=== PATIENT | female | born 1945 | race Caucasian/White ===

== ENCOUNTER 2022-08-18 13:13 | Emergency (ER) | payer MEDICARE, SELFPAY ==
--- NOTE | ~2022-08-18 | XR_ITS ---
EXAMINATION: XR chest 2V DATE: 08/18/2022 14:48 INDICATION: 4 days of cough TECHNIQUE: frontal and lateral views of the chest were obtained. COMPARISON: None FINDINGS: Elevation the right hemidiaphragm. There are mild opacities at the bilateral lung bases. No pulmonary edema, pleural effusion or pneumothorax. Calcified pulmonary nodule versus mediastinal lymph node pr ojecting at the medial left lung base consistent with old granulomatous disease. The cardiomediastina l silhouette is normal. Median sternotomy wires and mediastinal surgical clips are seen, likely from prior coronary artery bypass grafting. Dual lead pacemaker seen with leads projecting over the expect ed locations of the right atrium and right ventricle. IMPRESSION: 1. Mild bibasilar opacities and favor atelectasis over pneumonia. 2. Elevation the right hemidiaphragm. Reviewed, dictated and finalized at location A. [employer]
[2022-08-18 13:22] VITALS: BP 131/64; PULSE 70; RESP 20; TEMP 36.6; O2SAT 95
--- NOTE | 2022-08-18 14:37 | ED.GENADULT ---
HPI - General Adult General Chief complaint: Upper Respiratory Infection Stated complaint: cold flu Source: patient Mode of arrival: ambulatory Limitations: no limitations History of Present Illness HPI narrative: Patient presents for evaluation of sick symptoms since Saturday. She initially had a ?tickle in the throat?. She has since developed a sinus congestion, postnasal drainage, productive cough of clear sputum. She has chronic shortness of breath, not worse from her baseline. She wears 2 L of oxygen at night but has not needed to titrate from her normal use. No fever, chills, nausea, vomiting, diarrhea. She does not smoke. She has been taking mucinex and cough syrup for her symptoms. She has received COVID vaccinations, COVID booster and flu shot this year. No additional complaints or concerns. Related Data Home Medications Medication Instructions Recorded Confirmed Vascepa 08/18/22 albuterol 08/18/22 apixaban 5 mg tablet (Eliquis) mg 08/18/22 budesonide-formoterol HFA 160 inhalation 08/18/22 mcg-4.5 mcg/actuation aerosol inhaler (Symbicort) diltiazem HCl 60 mg tablet mg 08/18/22 dofetilide 500 mcg capsule mcg 08/18/22 ferrous sulfate 324 mg (65 mg mg PO 08/18/22 iron) tablet,delayed release magnesium oxide 400 mg (241.3 mg mg 08/18/22 magnesium) tablet montelukast 10 mg tablet mg 08/18/22 niacin 1,000 mg tablet,extended mg PO 08/18/22 release 24 hr pantoprazole 40 mg tablet,delayed mg PO 08/18/22 release simvastatin 40 mg tablet mg 08/18/22 Allergies Allergy/AdvReac Type Severity Reaction Status Date / Time Sulfa (Sulfonamide Allergy Unknown RASH Verified 07/30/17 16:48 Antibiotics) Review of Systems Review of Systems: CONSTITUTIONAL: Denies fever, chills, or sweats. EYES: Denies visual changes, redness, or discharge. ENT: Reports a ?tickle in the throat?. Reports sinus congestion, postnasal drainage. Denies sore throat or otalgia. CARDIOVASCULAR: Denies chest pain, palpitations, or edema. RESPIRATORY: Reports cough. Reports chronic shortness of breath, not worse from baseline GASTROINTESTINAL: Denies abdominal pain, nausea, vomiting, or diarrhea. GENITOURINARY: Denies dysuria or hematuria. SKIN: Denies rash or itching. MUSCULOSKELETAL: Denies back pain, joint pain, or myalgia. NEUROLOGIC: Denies headache, numbness, dizziness, or weakness. PSYCHIATRIC: Denies anxiety or depression. [facility] Past Medical History Medical History (Updated 08/18/22 @ 15:14 by Thad Patrick, VICE CHANCELLOR, ) Atrial fibrillation Cardiovascular disease Surgical History Surgical History History of heart bypass surgery Family History Family History Mother Family history non-contributory Social History Social History Substance use: never Gender identity (if verbalized by the patient): Female Spiritual care concerns: No Exam Narrative: GENERAL: Well-appearing, well-nourished, and in no acute distress. HEAD: Normocephalic, atraumatic. EYES: PERRLA and EOMI. ENT: Nares clear, no rhinorrhea or epistaxis. Mucous membranes moist. Oropharynx without tonsillar hypertrophy exudate or other lesions. Bilateral TMs pearly jennings nonbulging NECK: Supple. No adenopathy or masses. No carotid bruits or JVD CHEST: Mild wheezing noted in posterior lung lam bilaterally. No respiratory distress. No rales or rhonchi HEART: Regular rate and rhythm. No murmur heard. Normal peripheral pulses. ABDOMEN: Soft, nontender, nondistended, normal active bowel sounds. EXTREMITIES: Normal range of motion. No edema. SKIN: Warm, dry, no rash. NEURO: No focal deficits. Alert and oriented x3. PSYCH: Normal mood and affect. Course Course Emergency Course: This is a 77 yr old female here today for sick symptoms. COVID
[2022-08-18] MEDS: methylPREDNISolone SOD SUCC 125 MG VIAL IM (14:48)
== END 2022-08-18 15:31 | disposition home or self-care (01) ==
PROVIDERS: Emergency Provider Nurse Practitioner; PCP Internal Medicine
DX: J18.9 Pneumonia, unspecified organism (principal); I48.91 Unspecified atrial fibrillation; I67.9 Cerebrovascular disease, unspecified; Z95.1 Presence of aortocoronary bypass graft
CPT/HCPCS: 71046; 87426; 87804; 99203; C9803; G0463; J2930

== ENCOUNTER 2023-09-06 12:53 | Emergency (ER) | payer MEDICARE, SELFPAY ==
[2023-09-06 13:06] VITALS: BP 133/60; PULSE 72; RESP 16; TEMP 36.8; O2SAT 94
--- NOTE | 2023-09-06 13:28 | ED.URI ---
HPI - URI/Sore Throat General Chief Complaint: Upper Respiratory Infection Stated Complaint: sinus/chest congestion/cough Time Seen by Provider: 09/06/23 13:28 Source: patient, RN notes reviewed and old records reviewed Mode of arrival: ambulatory Limitations: no limitations History of Present Illness HPI Narrative: 78 years old female presents to express care with complaints of sinus congestion and drainage which has moved into chest with increased cough with production of yellowish green mucous with some blood streak noted,Patient reports history of asthma and is on daily inhalers. Patient reports that she has taken Sudafed and Mucinex for her symptoms. Respirations even and nonlabored with no tachypnea, able to speak in full sentences, SAO2 94% on room air. MD elicited complaint: cough, rhinorrhea, nasal congestion and other (cough productive) Pertinent past history: asthma Onset (ago): week(s) (1) Consistency: constant Pain scale (0-10): 5 Able to tolerate fluids by mouth: Yes Treatments prior to arrival: other (sudafed and Mucinex) Related Data Home Medications Medication Instructions Recorded Confirmed albuterol 08/18/22 apixaban 5 mg tablet (Eliquis) mg 08/18/22 budesonide-formoterol HFA 160 inhalation 08/18/22 mcg-4.5 mcg/actuation aerosol inhaler (Symbicort) diltiazem HCl 60 mg tablet mg 08/18/22 dofetilide 500 mcg capsule mcg 08/18/22 ferrous sulfate 324 mg (65 mg mg PO 08/18/22 iron) tablet,delayed release magnesium oxide 400 mg (241.3 mg mg 08/18/22 magnesium) tablet montelukast 10 mg tablet mg 08/18/22 niacin 1,000 mg tablet,extended mg PO 08/18/22 release 24 hr pantoprazole 40 mg tablet,delayed mg PO 08/18/22 release furosemide 40 mg tablet mg 09/06/23 icosapent ethyl 1 gram capsule g PO 09/06/23 propranolol 120 mg capsule,24 mg PO 09/06/23 hr,extended release rosuvastatin 40 mg tablet mg 09/06/23 Allergies Allergy/AdvReac Type Severity Reaction Status Date / Time Sulfa (Sulfonamide Allergy Unknown RASH Verified 09/06/23 13:02 Antibiotics) Review of Systems Review of Systems: CONSTITUTIONAL:Reports malaise, no chills, sweats, or fever. EYES: Denies visual changes, redness, or discharge. ENT: Reports rhinorrhea, congestion, sinus pain, no otalgia and no sore throat. CARDIOVASCULAR: Denies chest pain, palpitations, or edema. RESPIRATORY: Reports cough.? Denies dyspnea. GASTROINTESTINAL: Denies abdominal pain, nausea, vomiting, diarrhea SKIN: Denies rash or itching. MUSCULOSKELETAL: Reports myalgia. NEUROLOGIC: Denies headache. All systems reviewed & are unremarkable except as noted in HPI and below PMFSH Past Medical History Medical History Asthma Atrial fibrillation Cardiovascular disease Elevated cholesterol GERD (gastroesophageal reflux disease) Hypertension Surgical History Surgical History (Updated 09/07/23 @ 15:37 by Ofelia Sin NP) History of bilateral knee replacement History of bladder suspension procedure History of cataract surgery bilateral History of heart bypass surgery Status post biventricular cardiac pacemaker insertion Family History Family History Mother Family history non-contributory Social History Social History (Updated 09/07/23 @ 15:29 by Ofelia Sin NP) Smoking status: Former smoker Additional smoking assessment comments: quit 1986 after smoking 20 years Alcohol intake: current Alcohol use details: rare social Substance use: never Gender identity (if verbalized by the patient): Female Spiritual care concerns: No Comments At time of signature, agree with nursing past medical, surgical, social and family history. There is no relevant family history pertinent to the presenting complaint Exam Narrative: GENERAL: Well-appearing, well-nourished, and in no acut
[2023-09-06 13:29] VITALS: BP 133/60; PULSE 72; RESP 16; TEMP 36.8; O2SAT 94
== END 2023-09-06 13:50 | disposition home or self-care (01) ==
PROVIDERS: Emergency Provider Registered Nurse; PCP Internal Medicine
DX: J06.9 Acute upper respiratory infection, unspecified (principal); Z87.891 Personal history of nicotine dependence; J45.909 Unspecified asthma, uncomplicated; I48.91 Unspecified atrial fibrillation; E78.00 Pure hypercholesterolemia, unspecified; K21.9 Gastro-esophageal reflux disease without esophagitis; I10 Essential (primary) hypertension; Z96.653 Presence of artificial knee joint, bilateral; Z95.1 Presence of aortocoronary bypass graft; Z95.0 Presence of cardiac pacemaker
CPT/HCPCS: 99213; G0463

== ENCOUNTER 2024-11-19 10:59 | Emergency (ER) | payer MEDICARE, SELFPAY ==
[2024-11-19 11:09] VITALS: BP 109/75; PULSE 93; RESP 20; TEMP 36.9; O2SAT 92
--- NOTE | 2024-11-19 11:24 | ED_ITS ---
HPI - URI/Sore Throat General Chief Complaint: Upper Respiratory Infection Stated Complaint: sinus problem/cough/nosebleed Time Seen by Provider: 11/19/24 11:24 Source: patient, RN notes reviewed and old records reviewed Mode of arrival: ambulatory Limitations: no limitations History of Present Illness HPI Narrative: 79-year-old female presents to the [facility] with complaints of cough, congestion, right ear pressure, chills. Reports fevers been on and off of 100. Reports she has taken Delsym. Symptoms for 7-10 days. Patient reports a history of asthma. Has not been using her albuterol. Onset (ago): day(s) (-) Related Data Home Medications ?Medication ?Instructions ?Recorded ?Confirmed ?Last Taken ?Type albuterol 08/18/22 Unknown History apixaban 5 mg tablet (Eliquis) mg 08/18/22 Unknown History budesonide-formoterol HFA 160 inhalation 08/18/22 Unknown History mcg-4.5 mcg/actuation aerosol inhaler (Symbicort) diltiazem HCl 60 mg tablet mg 08/18/22 Unknown History dofetilide 500 mcg capsule mcg 08/18/22 Unknown History ferrous sulfate 324 mg (65 mg mg PO 08/18/22 Unknown History iron) tablet,delayed release magnesium oxide 400 mg (241.3 mg mg 08/18/22 Unknown History magnesium) tablet montelukast 10 mg tablet mg 08/18/22 Unknown History niacin 1,000 mg tablet,extended mg PO 08/18/22 Unknown History release 24 hr pantoprazole 40 mg tablet,delayed mg PO 08/18/22 Unknown History release icosapent ethyl 1 gram capsule g PO 09/06/23 Unknown History rosuvastatin 40 mg tablet mg 09/06/23 Unknown History Flonase 11/19/24 Unknown History Vitamin C 11/19/24 Unknown History Vitamin D3 11/19/24 Unknown History albuterol sulfate 90 mcg/actuation inhalation 11/19/24 Unknown History aerosol inhaler allergy pill 11/19/24 Unknown History aspirin 11/19/24 Unknown History calcium 11/19/24 Unknown History multivitamin 11/19/24 Unknown History nebivolol 20 mg tablet mg 11/19/24 Unknown History nitroglycerin 0.4 mg sublingual mg 11/19/24 Unknown History tablet primidone 50 mg tablet mg 11/19/24 Unknown History spironolactone 50 mg tablet mg 11/19/24 Unknown History vitamin b12 11/19/24 Unknown History Allergies Allergy/AdvReac Type Severity Reaction Status Date / Time Sulfa (Sulfonamide Allergy Unknown RASH Verified 11/19/24 11:00 Antibiotics) Review of Systems Review of Systems: All systems reviewed & are unremarkable except as noted in HPI and below Constitutional: Constitutional: Reports no additional constitutional complaints ENT: Reports as per HPI Cardiovascular: Cardiovascular: Reports no additional cardiovascular complaints, Denies chest pain and Denies dyspnea Respiratory: Respiratory: Reports as per HPI, Reports chest congestion, Reports cough and Denies dyspnea Musculoskeletal: Musculoskeletal: Reports no additional musculoskeletal complaints Integumentary/Breasts: Skin/Breast: Reports system reviewed and no additional complaints, except as docu PMFSH Past Medical History Medical History Asthma Elevated cholesterol Hypertension GERD (gastroesophageal reflux disease) Atrial fibrillation Cardiovascular disease Surgical History Surgical History History of cataract surgery bilateral History of bladder suspension procedure Status post biventricular cardiac pacemaker insertion History of bilateral knee replacement History of heart bypass surgery Family History Family History Mother Family history non-contributory Social History Social History Smoking status: Former smoker Additional smoking assessment comments: quit 1986 after smoking 20 years Alcohol intake: current Alcohol use details: rare social Substance use: never Gender identity (if verbalized by the patient): Female Spiritual care concerns: No Comments At the time of my signature, I reviewed and agree with the nursing past medical, surgical, social, and family history. There is no relevant family history pertinent to the patient complaint. Exam Const: General: cooperative, healthy appearing, comfortable, no acute distress, well developed, alert and well nourished Nutritional Appearance: well nourished Orientation/consciousness: patient oriented x3 Limitations: no limitations HENMT: Head: normal to inspection Ears: hearing grossly normal bilaterally, external ears normal, EAC's normal, mastoids normal, no periauricular adenopathy and TM abnormal with fluid behind the TM bilateral Face/Nose/Sinus: Normal external nose present, No nasal discharge present, face symmetric and sinus tenderness Mouth: Yes Normal oral and palatal mucosa present, Yes lip normal, Yes tongue normal and Yes moist mucous membranes Throat: uvula midline, postnasal drainage and no uvular edema Eyes: General: appearance normal, both eyes and all related structures Alignment and Position: alignment normal Neck: Neck: normal visual inspection, full ROM, no lymphadenopathy and no meningeal signs Chest: Chest palpation & inspection: normal inspection of the chest Resp: Effort & Inspection: normal respiratory effort and able to speak in complete sentences Auscultation: clear to auscultation bilaterally, no crackles, no rales, no rhonchi and no wheezes Cardio: Rate: regular rate Skin: General skin exam: normal color and no rashes or lesions noted Neuro: General: patient oriented x3, gait normal, moves all extremities and no meningeal signs Cognition (Neuro): normal cognition Speech: normal speech Gait exam (Neuro): Normal gait present Extrem: General: normal to inspection, full ROM, capillary refill normal and normal gait Psych: Appearance: grossly normal and well kempt Mental Status: mental status grossly normal Speech and movement: Normal speech and movement present and Clear speech present Affect: normal affect Attitude: cooperative Course Course Level of Care: Express Care Visit Vital Signs Vital signs: Vital Signs Temperature 98.5 F 11/19/24 11:09 Pulse Rate 93 11/19/24 11:09 Respiratory Rate 20 11/19/24 11:09 Blood Pressure 109/75 11/19/24 11:09 Pulse Oximetry 92 11/19/24 11:09 Oxygen Delivery Room Air 11/19/24 11:09 Temperature 98.5 F 11/19/24 11:09 Pulse Rate 93 11/19/24 11:09 Respiratory Rate 20 11/19/24 11:09 Blood Pressure 109/75 11/19/24 11:09 Pulse Oximetry 92 11/19/24 11:09 Oxygen Delivery Room Air 11/19/24 11:09 Reviewed MDM - URI/Sore Throat MDM Narrative Medical decision making narrative: Patient sitting comfortably in exam room. Nontoxic, vitals stable. Patient in no acute distress. Patient presents with cough, congestion for 7-10 days. Has tried [id number] products. No acute findings noted on exam. Patient symptoms and exam consistent with sinusitis, bronchitis. Will treat with antibiotic, steroids, encourage patient to use inhaler. Patient appropriate for outpatient treatment with close follow- up. Discussed signs and symptoms proceed to the emergency room which patient verbalized understanding. Discharge instructions reviewed with patient, as well as provided in writing per nursing staff. The instructions also include specific and strict return/GO TO THE ER as well as f/u information. All questions have been answered, and the patient deny any further questions with discharge and discharge plan. Some parts of this dictation were generated by voice recognition software and may contain typographical and/or grammatical inaccuracies. Differential Diagnosis Differential diagnosis: Likely upper respiratory infection, otitis media, sinusitis, viral infection, bronchitis, influenza and pharyngitis Critical Care Time Critical Care Time Critical Care Time: No Discharge Plan Discharge Clinical Impression: Bronchitis Sinusitis Qualifiers: Sinusitis location: pansinusitis Chronicity: acute Recurrence: not specified as recurrent Qualified Code(s): J01.40 - Acute pansinusitis, unspecified Patient Disposition: Home, Self-Care Condition: Stable Instructions: Antibiotic Form, Sinusitis (ED), Acute Bronchitis (ED) Additional Instructions: You can use Delsym as needed for cough Use your inhaler every 4-5 hours while awake It is very important to treat your symptoms. Drink plenty of water, Gatorade, Pedialyte, ice pops or Jell-O. -Alternate Tylenol and Motrin per package directions for fever or pain. You can alternate every 4 hours -Antihistamine medication such as Zyrtec/Claritin/Dori during the day can help improve symptoms. -doing daily nasal irrigations can help relieve pressure your sinuses. Things like a Neti pot -Use Flonase twice a day for 5 days then daily to help reduce the inflammation and dry up your sinuses. -You can also use Mucinex. Be sure to drink plenty of water with this medication at least 8 ounces with every dose and it is important to drink 8 to 10 glasses of water per day. Water is a natural decongestant -Eat and drink things that are easy to swallow, like tea or soup, or popsicles. -Oral rinses such as: Salt water gargles and/or may use topical anesthetic (eg. Chloraseptic spray) or lozenges to relieve dryness or throat pain). -Frequent hand washing or hand health administrator is one of the best ways to prevent spread of infection. -Using a vaporizer or humidifier at night will also help thin secretions and help with coughing up phlegm. -Follow up with primary care provider in 7-10 days if condition is not improving - For new or worsening symptoms go directly to the nearest ER Patient Language: New Zealander Prescriptions: New amoxicillin-pot clavulanate 875-125 mg tablet 1 tablet PO Q12H Qty: 14 0RF prednisone 20 mg tablet See Rx Instructions .Route .COMPLEX Qty: 9 0RF Rx Instructions: Take 40 mg daily for 3 days, 20 mg daily for 3 days No Action primidone 50 mg tablet nitroglycerin 0.4 mg tablet, sublingual albuterol sulfate 90 mcg/actuation HFA aerosol inhaler INHALATION spironolactone 50 mg tablet nebivolol 20 mg tablet Flonase aspirin multivitamin Vitamin C calcium vitamin b12 Vitamin D3 allergy pill niacin 1,000 mg tablet extended release 24 hr PO magnesium oxide 400 mg (241.3 mg magnesium) tablet pantoprazole 40 mg tablet,delayed release (DR/EC) PO montelukast 10 mg tablet diltiazem HCl 60 mg tablet dofetilide 500 mcg capsule budesonide-formoterol [Symbicort] 160-4.5 mcg/actuation HFA aerosol inhaler INHALATION ferrous sulfate 324 mg (65 mg iron) tablet,delayed release (DR/EC) PO Eliquis 5 mg tablet albuterol rosuvastatin 40 mg tablet icosapent ethyl 1 gram capsule PO Follow-up/Referrals: Mariano,Darrell Mccarty MD [Primary Care Provider] - 2 Weeks (express care follow up ) Time of Disposition: 11:47
--- OUTSIDE RECORDS SUMMARY | 2024-11-19 11:58 | XMS_ITS | Referral Summary ---
Author Organization [facility] Address [address] [place] [address] Care Team Providers Care Light Oil Operator Name Role Phone Easton Quintana MD Primary Care Provider + Jim Watkins MD Unavailable [phone] Encounters Date Type Department Care Team Description 11/18/2024 Results Follow-Up [facility] at [place] [address] [facility] [address] [place] [id number] Sharita Wei MD 11/13/2024 9:51 AM CDT Anesthesia Event [address] [address] Mike Ulloa MD 11/13/2024 10:00 AM CDT - 11/13/2024 10:30 AM CDT Surgery [address] [address] Sharita Wei MD COLON REMOVAL SNARE 11/13/2024 8:27 AM CDT - 11/13/2024 11:13 AM CDT Hospital Encounter [address] [address] Sharita Wei MD Personal history of colonic polyps; Family history of colon cancer; Encounter for screening colonoscopy; History of colonic polyps Discharge Disposition: Discharge to home or self care 09/03/2024 1:25 PM PRESIDENT PRACTICING UROLOGIST - 09/03/2024 11:59 PM PRESIDENT PRACTICING UROLOGIST Hospital Encounter [address] [address] Rad, Amh Fluoro Disorders of diaphragm Discharge Disposition: Discharge to home or self care 09/03/2024 1:25 PM PRESIDENT PRACTICING UROLOGIST - 09/03/2024 11:59 PM PRESIDENT PRACTICING UROLOGIST Hospital Encounter [facility] [address] [place] [address] Abnormal results of pulmonary function studies; Other disorders of lung Discharge Disposition: Discharge to home or self care from Last 3 Months Allergies Active Allergy Reactions Criticality Noted Date Comments Sulfa (Sulfonamide Antibiotics) Rash Reaction: RASH/HIVES, Reaction: Rash, Sulfanilamide Rash Reaction: Rash, Medications SYMBICORT 160-4.5 mcg/actuation inhaler Inhale 2 puffs 2 (two) times a day 02/22/20 17 Active magnesium oxide (MAG-OX) 400 mg (241.3 mg elemental) tabletIndicatio ns:hypomagnesem ia Take 1 tablet (400 mg total) by mouth 2 (two) times a day 02/21/20 17 Active vit A,C and W-rjidpj-vywmxm ls (OCCUVITE with LUTEIN) 1,000 unit-200 mg-60 unit-2 mg tabletIndicatio ns:Vitamin Deficiency Prevention 1 tablet daily Active icosapent ethyl (VASCEPA) 1 gram capsule Take 2 capsules (2 g total) by mouth 2 (two) times a day Active cholecalciferol (VITAMIN D-3) 5,000 unit tablet Take 1 tablet (5,000 Units total) by mouth daily Active cyanocobalamin (Vitamin B-12) 1,000 mcg tabletIndicatio ns:Prevention of Vitamin B12 Deficiency Take 1 tablet (1,000 mcg total) by mouth daily Active fluticasone propionate (FLONASE) 50 mcg/actuation nasal spray Administer 1 spray into each nostril daily Active montelukast (SINGULAIR) 10 mg tablet Take 1 tablet (10 mg total) by mouth nightly Active multivitamin capsule Take 1 capsule by mouth daily Active niacin ER (NIASPAN) 1,000 mg CR tablet Take 2 tablets (2,000 mg total) by mouth nightly Active aspirin 81 mg enteric coated tabletIndicatio ns:Myocardial Reinfarction Prevention Take 1 tablet (81 mg total) by mouth daily Active apixaban (ELIQUIS) 5 mg tablet Take by mouth 01/24/20 17 Active dofetilide (TIKOSYN) 500 mcg capsuleIndicati ons:Prevention of Recurrent Atrial Fibrillation Take 1 capsule (500 mcg total) by mouth 2 (two) times a day Active dilTIAZem (CARDIZEM) 60 mg tabletIndicatio ns:hypertension Take 1 tablet (60 mg total) by mouth 3 (three) times a day Active busPIRone (BUSPAR) 5 mg tablet Take 1 tablet (5 mg total) by mouth 3 (three) times a day as needed 07/31/[address] (PROTONIX) 40 mg EC tabletIndicatio ns:Iron deficiency anemia, unspecified iron deficiency anemia type TAKE 1 TABLET(40 MG) BY MOUTH TWICE DAILY 180 tablet 3 10/29/19 24 Active nebivoloL (BYSTOLIC) 20 mg tablet Take 1 tablet (20 mg total) by mouth daily 03/21/20 24 Active primidone (MYSOLINE) 50 mg tablet Take 0.5 tablets (25 mg total) by mouth daily 04/21/20 24 Active spironolactone (ALDACTONE) 50 mg tablet Take 1 tablet (50 mg total) by mouth daily 03/21/20 24 Active rosuvastatin (CRESTOR) 40 mg tablet Take 1 tablet (40 mg total) by mouth daily Active albuterol HFA (PROVENTIL HFA,VENTOLIN HFA,PROAIR HFA) 90 mcg/actuation inhaler Inhale 1 puff 3 (three) times a day Active ascorbic acid (vitamin C) 1,000 mg tablet Take 1 tablet (1,000 mg total) by mouth daily Active calcium iax-xpe-R1-Zn-c op-bartolo 250 mg-40 mg- 125 unit-3.75mg tablet Take 1 tablet by mouth 2 (two) times a day Active ferrous sulfate ER 324 mg (65 mg iron) EC tablet TAKE 1 TABLET BY MOUTH TWICE DAILY 180 tablet 1 11/17/19 25 Active simvastatin (ZOCOR) 40 mg tablet Take 1 tablet (40 mg total) by mouth nightly 025 Discontinued(A lternate therapy) metroNIDAZOLE (METROGEL) 0.75 % gel SHENG TO RED AREAS ON FACE BID 05/04/20 20 025 Discontinued propranolol LA (INDERAL LA) 120 mg 24 hr capsule 09/18/19 23 03/13/2 025 Discontinued(A lternate therapy) furosemide (LASIX) 10 mg/mL solution Take by mouth daily 025 Discontinued(A lternate therapy) potassium chloride 20 mEq/50 mL IVPB Infuse 50 mL (20 mEq total) into a venous catheter 025 Discontinued(T herapy completed) isosorbide mononitrate ER (IMDUR) 30 mg 24 hr tablet TAKE 1 TABLET BY MOUTH EVERY DAY PREVENTION 02/07/20 025 Discontinued nitroglycerin (NITROSTAT) 0.4 mg SL tablet 02/05/20 025 Discontinued(T herapy completed) ferrous sulfate ER 324 mg (65 mg iron) EC tablet TAKE 1 TABLET BY MOUTH TWICE DAILY 180 tablet 1 05/11/20 025 Discontinued Active Problems Problem Noted Date Diagnosed Date Personal history of colonic polyps 02/20/2024 Encounter for screening colonoscopy 02/20/2024 Yeast dermatitis 09/19/2022 Assessment & Plan (09/19/2022 3:08 PM PRESIDENT PRACTICING UROLOGIST): Will treat with nystatin prn Dryness measure discussed. Well woman exam 09/20/2021 Overview (02/10/2024): Lab: Pap:all normal Dr. Quintana follows labs Lexy: 2022- normal per pt. Colonoscopy: 2021- 7 more polyps. To go back 2023 BMD: last one in the computer is 2012, but she said Dr. Quintana told her she is up to date. She will d/w him at her next appt. She discussed her BMD with Dr. Quintana and he said she did not need now. Assessment & Plan (02/10/2024 3:24 PM CDT): She will schedule her colonoscopy through Dr. Quintana's She discussed her BMD with Dr. Quintana and he said she did not need now. Complete exam done To call if she gets one of the lesions and I will get her in to check. Assessment & Plan (09/19/2022 3:07 PM PRESIDENT PRACTICING UROLOGIST): Complete exam done. Assessment & Plan (09/20/2021 10:09 AM PRESIDENT PRACTICING UROLOGIST): Complete exam done. Not a candidate for pap. RTO 12m. Sick sinus syndrome 06/21/2021 Pulsatile tinnitus of right ear 08/07/2019 Assessment & Plan (08/07/2019 10:58 AM PRESIDENT PRACTICING UROLOGIST): Zpak with a meal daily CT Angiogram - call with results Hearing Test Chronic maxillary sinusitis 08/07/2019 Assessment & Plan (08/07/2019 10:59 AM PRESIDENT PRACTICING UROLOGIST): Flonase 2 sprays into each nostril while looking down over the sink, do not sniff in or blow nose after use daily for one month Zpak with a meal daily Tinnitus of right ear 08/07/2019 Assessment & Plan (08/07/2019 10:58 AM PRESIDENT PRACTICING UROLOGIST): Hearing test, call with results Iron deficiency anemia 07/09/2019 Overview (07/09/2019): Added automatically from request for surgery [id number] 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 She says she just had some blood work ordered by Dr. Quintana this past week and was told she needs to be on iron supplements daily. She just started these. Pt says her Hgb was stable but still low. Will order small bowel capsule endoscopy to complete evaluation and f/u after this testing is done. Family history of colon cancer 04/01/2019 Overview (04/01/2019): Added automatically from request for surgery [id number] History of colon polyps 04/01/2019 Overview (04/01/2019): Added automatically from request for surgery [id number] Multiple gastric ulcers 2017 Assessment & Plan (2017 4:49 PM CDT): Continue with Protonix 40 mg b.i.d. for the next week and a half, then taper down to 40 mg daily in the a.m. Patient was advised to with Dr. Billings appointment as scheduled here in 2 weeks as well There is any concern regarding changes in stools, vomiting, and abdominal pain to follow-up certainly in our office or with the GI specialist Anticoagulant long-term use 2017 Assessment & Plan (2017 4:41 PM CDT): Start back on qu and aspirin on Saturday as advised. F/u with us with any concern of melena Flushing reaction 2017 Assessment & Plan (2017 4:51 PM CDT): Patient was educated that this flushing reaction was due to having taking her niacin without the aspirin. Patient was advised to stop niacin for the next 2 nights until resuming her aspirin as that should assist with the side effects of the niacin. Certainly if symptoms persist with the flushing will look into other causes of this however nice and as well noted to do that and having not taken with the aspirin as the likely cause Healthcare maintenance 02/25/2017 Medication management 02/25/2017 Paroxysmal atrial fibrillation 02/25/2017 Obstructive sleep apnea (adult) (pediatric) 08/02 Overview (12/07/2016): CARROLL Benign hypertension 01/16/2014 Overview (12/07/2016): BENIGN HYPERTENSION Osteoarthritis 12/21/2013 Overview (12/06/2016): OA (osteoarthritis) Vitamin D deficiency 11/28/2012 Overview (12/06/2016): VITAMIN D DEFICIENCY NOS Hypertension 06/17/2012 Overview (12/06/2016): Hypertension, Unspecified Hyperlipidemia 06/17/2012 Overview (12/06/2016): HYPERLIPIDEMIA NEC/NOS Atherosclerosis of coronary artery 06/17/2012 Overview (12/07/2016): CAD (coronary artery disease) History of deep venous thrombosis 06/17/2012 Overview (12/07/2016): History of DVT (deep vein thrombosis) Lichen sclerosus et atrophicus 06/17/2012 Overview (12/07/2016): Lichen sclerosus et atrophicus Assessment & Plan (02/10/2024 3:25 PM CDT): Healthy vulva today Assessment & Plan (09/19/2022 3:07 PM PRESIDENT PRACTICING UROLOGIST): Vulva is healthy today Assessment & Plan (09/20/2021 10:09 AM PRESIDENT PRACTICING UROLOGIST): asx today. Will continue to follow. Immunizations Immunization Administration Dates Next Due Influenza, Quad, Adjuvantate d, Intramuscular 05/17/2023,05/10/2020 Influenza, Quadrivalent, Hig h Dose, Preservative Free, Intrr 06/15/2022,06/26/2021 Influenza, Quadrivalent, Spl it, Preservative Free, Intramuscular 06/25/2016 Influenza, Split 06/11/2011,05/30/2010 Influenza, Trivalent, High D ose, Split, Preservative Free, Intramuscular 06/07/2019,06/30/2018,07/02/2017,06/24 Influenza, Trivalent, IM (MDV) 4,06/10/2014,05/27/2013,06/14,06/02/2007 Influenza, Trivalent, Preser vative Free, Intramuscular 05/10/2020,06/06/2015 Moderna SARS-CoV-2 Monovalen t Vaccination (12+ YRS) 01/15/2022,08/02/2021,11/11/2020,10/14 Pneumococcal Conjugate PCV 13 12/09/2012 Pneumococcal Polysaccharide PPV23 04/12/2008 RSV Vaccine, Pref, Recombina nt, Subunit, Adjuvanted, PF, IM (Arexvy) 05/17/2023 Td, adsorbed 11/29/2010,04/15/2000 ZOSTER LIVE 01/21/2008 ZOSTER Recombinant 08/06/2019,06/07/2019 Social History Tobacco Use Types Packs/Day Years Used Date Smoking Tobacco: Former Cigarettes 0.5 15 0 02/07/1959 - 1972 Smokeless Tobacco: Never Tobacco Cessation:Counseling Given: Not Answered Alcohol Use Standard Drinks/Week Comments Yes 0 (1 standard drink = 0.6 oz pur e alcohol) 1 daily Humiliation, Afraid, Rape, and Kick questionnair e Answer Date Recorded Within the last year, have y ou been afraid of your partner or ex-partner? No 02/10/2024 Within the last year, have y ou been humiliated or emotionally abused in other ways by your partner or ex-partner? No Within the last year, have y ou been kicked, hit, slapped, or otherwise physically hurt by your partner or ex-partner? No 02/10/2024 Within the last year, have y ou been raped or forced to have any kind of sexual activity by your partner or ex-partner? No 02/10/2024 AUDIT-C Answer Date Recorded Q1: How often do you have a drink containing alcohol? 4 or more times a week 11/12/2024 Q2: How many drinks containi ng alcohol do you have on a typical day when you are drinking? 1 or 2 Q3: How often do you have si x or more drinks on one occasion? Never 11/12/2024 PHQ-2 Answer Date Recorded PHQ-2 Total Score (If total score is 3 or more points, staff should administer the PHQ-9) 0 02/10/2024 Personal Safety Answer Date Recorded Have you ever been in or are you currently in a harmful physical or emotional relationship or is someone making you feel afraid or unsafe? Denies 11/13/2024 Comments No Sex and Gender Information Value Date Recorded Sex Assigned at Not on file Legal Sex Female 8:07 AM PRESIDENT PRACTICING UROLOGIST Gender Identity Female 09/12/2021 8:12 PM PRESIDENT PRACTICING UROLOGIST Sexual Orientation Straight 09/12/2021 8: 12 PM PRESIDENT PRACTICING UROLOGIST Last Filed Vital Signs Vital Sign Reading Time Taken Comments Blood Pressure 146/61 11/13/2024 10:55 AM CDT Pulse 70 11/13/2024 10:55 AM CDT Temperature 36.8 C (98.2 F) 11/13/2024 10:55 AM CDT Respiratory Rate 16 11/13/2024 10:55 AM CDT Oxygen Saturation 97% 11/13/2024 10:55 AM CDT Inhaled Oxygen Concentration - - Weight 90.7 kg (200 lb) 11/13/2024 8:41 AM CDT Height 162.6 cm (5' 4 ) 11/13/2024 8:41 AM CDT Body Mass Index 34.33 11/13/2024 8:41 AM CDT Plan of Treatment Not on file Medical Devices Implanted Type Area Judo Teacher Device Identifier Shelf Expiration Date Model / Serial / Lot Knee Bilateral: Knee Description:2013 bilateral, both with in the same year Procedures Procedure Name Priority Date/Time Associated Diagnosis Comments SURGICAL PATHOLOGY STAT 11/13/2024 2: 13 PM CDT History of colonic polyps Family history of colon cancer Encounter for screening colonoscopy INFRARED COAGULATION OF HEMORRHOIDS 11/13/2024 9:36 AM CDT Personal history of colonic polyps Family history of colon cancer Encounter for screening colonoscopy ENDO ADD ON COLON BIOPSY 11/13/2024 9:36 AM CDT Personal history of colonic polyps Family history of colon cancer Encounter for screening colonoscopy COLON REMOVAL SNARE 11/13/2024 9 :36 AM CDT Personal history of colonic polyps Family history of colon cancer Encounter for screening colonoscopy COLONOSCOPY 11/13/2024 8:29 AM CDT SNIFF TEST Schedule Routine, Read Routine (OP Routine) 09/03/2024 2:33 PM PRESIDENT PRACTICING UROLOGIST Disorders of diaphragm CT CHEST WO CONTRAST Schedule Routine, Read Routine (OP Routine) 09/03/2024 2:15 PM PRESIDENT PRACTICING UROLOGIST Abnormal results of pulmonary function studies Other disorders of lung HM DEXA SCAN Routine 01/12/2013 from Last 3 Months or Most Recently Relevant to Health Maintenance Results * Surgical pathology (11/13/2024 2:13 PM CDT) Tissue (Colon, Biopsy) 11/13/2024 10:22 AM CDT Tissue (Polyp(s), colon/colorectal, esophageal, gastric) 11/13/2024 10:22 AM CDT Narrative PATHOLOGY [facility] - 11/16/2024 12:43 PM CDT EPIC results best viewed via link to PDF [facility] Department of Pathology [address] [place] [address] Note to Patients: This report may contain a detailed description of human tissue sent by a health care provider to the laboratory for pathologic evaluation. The content of this report is essential for diagnosis and may provide important critical findings. This information may be unfamiliar to patients to review without a medical professional present. It is advised that the patient review this report in the presence of a health care provider who can answer questions and explain the details. Final Report Patient Name: TEETEE AGUDELO Address: [address] [place] [address] [place] [address]- Gender: F : 1945 (Age: 79) Service: Gastro Location: [facility] Hospital #: [id number] Patient Type: [facility] Taken: 11/13/2024 Received: 11/13/2024 Accessioned: 11/13/2024 Reported: 11/16/2024 Physician(s):Dr. Sharita Wei M.D. Diagnosis: A. Colon, cecum, biopsy: - Focal active inflammation. - No evidence of dysplasia or malignancy. - See microscopic description. B. 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 - No evidence of dysplasia or malignancy. Joe Disla MD Report Electronically Reviewed and Signed Out By Joe Disla MD 11/16/2024 12:43:56 Specimen(s) Received: A: Cecum biopsy B: Hepatic flexure polyp x 1 Microscopic Description: A. Microscopic examination shows fragments of colonic mucosa with focal active cryptitis. There is no evidence of crypt abscess formation, crypt architectural distortion, or well-formed granulomas. There is no evidence of dysplasia or malignancy. In summary, the findings are that of focal active inflammation. There are no morphologic findings to strongly suggest a specific etiology. Recommend correlation with clinical and endoscopic findings and follow-up as clinically indicated. B. Microscopic examination shows polypoid fragments of colonic mucosa with hyperplastic glandular changes in addition to crypt dilation, lateral branching, and focal flattening of the crypt bases. Given the endoscopic impression of a 16 mm sessile polyp, the findings are consistent with a sessile serrated lesion (former WHO designation: sessile serrated adenoma/polyp). There is no evidence of dysplasia or malignancy. Intradepartmental consultation: This specimen was also reviewed by Dr. Arora, who concurs with the above findings. Clinical History: Personal history of colonic polyps. Family history of colon cancer. Screening colonoscopy. Gross Description: The specimen is submitted in two formalin containers labeled TEETEE WADE . A. The first container is labeled cecum biopsy . It is 2 fragments of jeter tissue between 2 and 3 mm. All in A. B. The second container is labeled hepatic flexure polyp . It is 6 fragments of jeter tissue between <1 and 2 mm. All in B. [employer]Tisha Brennan M.D. REPORT IMAGES AND SCANNED DOCUMENTS, IF INCLUDED, ONLY VIEWABLE IN PDF VERSION OF REPORT The performance characteristics of some immunohistochemical stains, fluorescence in-situ hybridization tests and immunophenotyping by flow cytometry cited in this report (if any) were determined by the Surgical Pathology Department at [facility] as part of an ongoing vendor quality supervisor program and in compliance with federally mandated regulations drawn from the Clinical Laboratory Improvement Act of 1988 (CLIA '88). Some of these tests rely on the use of analyte specific reagents and are subject to specific labeling requirements by the US Food and Drug Administration. Such diagnostic tests may only be performed in a facility that is certified by the Department of Health and Human Services as a high complexity laboratory under CLIA '88. The FDA has determined that such clearance or approval is not necessary. This test is used for clinical purposes. It should not be regarded as investigational or for research. Nevertheless, federal rules concerning the medical use of analyte specific reagents require that the following disclaimer be attached to the report: This test was developed and its performance characteristics determined by the Surgical Pathology Department [facility]. It has not been cleared or approved by the U. S. Food and Drug Administration. Note for decalcified specimens: This assay has not been validated on decalcified tissues. Results should be interpreted with caution given the possibility of false negativity on decalcified specimens us Sharita Wei MD LAB PATHOLOGY ORDERABLES F inal Result Performing Organization Address City/State/[facility] Co de Phone Number PATHOLOGY [facility] [address] [place] [address] * Colonoscopy (11/13/2024 8:29 AM CDT) Anatomical Region Laterality Modality Other Narrative Procedure Note Sharita Wei MD - 11/13/2024 8:29 AM CDT [facility] Patient Name: Teetee Agudelo Procedure Date: 11/13/2024 8:29 AM Date of : 1945 Admit Type: Outpatient Age: 79 Gender: Female Attending MD: Sharita Wei M.D. Room: [facility] ENDOSCOPY ROOM 1 Note Status: Finalized Patient Profile: This is an 79 year old female. History of multiple adenoma polyps. Her son had colon cancer. Noted complaints of bleeding per rectum bleeding this morning for coming to the colonoscopy. Procedure: Colonoscopy Indications: Screening in patient at increased risk: Familyhistory of 1st-degree relative with colorectal cancerbefore age 60 years, Surveillance: Personal history of adenomatous polyps on last colonoscopy 3 years ago, Last colonoscopy: March 2022 Referring MD: Easton Quintana M.D. Providers: Sharita Wei M.D. Impression: - Granularity at the appendiceal orifice benign-appearing. Biopsied. - One 16 mm polyp at the hepatic flexure, removedwith a hot snare. Resected and retrieved. Clips (MR conditional) were placed. - Diverticulosis in the sigmoid colon and in the descending colon. - Internal hemorrhoids. Treated with thermaltherapy. Recommendation: - Await pathology results. - Continue present medications. - Repeat colonoscopy in 3 years if clinicallyindicated Medicines: Monitored Anesthesia Care Complications: No immediate complications. Estimated Blood Loss: Estimated blood loss: none. Procedure: Pre-Anesthesia Assessment: - Prior to the procedure, a History and Physicalwas performed, and patient medications and allergieswere reviewed. The patient's tolerance of previous anesthesia was also reviewed. The risks andbenefits of the procedure and the sedation options and risks were discussed with the patient. All questions were answered, and informed consent was obtained. Prior Anticoagulants: The patient has taken noanticoagulant or antiplatelet agents. ASA Grade Assessment: Per anesthesia note and evaluation. After reviewing the risks and benefits, the patient was deemed in satisfactory condition to undergo the procedure. The benefits, risks and alternatives of theprocedure and sedation were discussed and informed consentwas obtained. All questions were answered. Please referto the signed informed consent document in the medical record. The bowel preparation used was Miralax via split dose instruction. The bowel preparation usedwas bisacodyl tablets via split dose instruction. The scope was passed under direct vision. The Pediatric Colonoscope PCF-H190L [id number] was introducedthrough the anus and advanced to the the cecum, identifiedby appendiceal orifice and ileocecal valve. Thequality of the bowel preparation was good. Bowel prep was administered using a split dose. Findings: Small external hemorrhoids were found on perianal exam. The cecum appeared normal. A localized area of granular mucosa was found at the appendiceal orifice. Biopsies were taken with a cold forceps for histology. The descending colon, transverse colon and ascending colon appeared normal. A 16 mm polyp was found in the hepatic flexure. The polyp wassessile. The polyp was removed with a hot snare. Resection and retrieval were complete. To prevent bleeding after the polypectomy, two hemostatic clips were successfully placed (MR conditional). Clip hot mill tin roller: [employer]. There was no bleeding at the end of theprocedure. Multiple small and large-mouthed diverticula were found in thesigmoid colon and descending colon. Internal hemorrhoids were found during retroflexion. The hemorrhoids were medium-sized. Coagulation for hemostasis of internal hemorrhoids using IRC (Infrared Coagulation) was successful. Electronically signed by Sharita Wei M.D. Sharita Wei M.D. 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 All rights reserved. The codes documented in this report are preliminary and upon converter operator reviewmay be revised to meet current compliance requirements. 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 Breathing troubles x 1-2 years Per pt, has restricted breathing. FT 0.3 min Dose 371.3 mGy COMPARISON: 06/20/2024 RADIATION DOSE: Dose: 12953.42 uGym2 Dose Area Product (DAP) TECHNIQUE: Fluoroscopy of the chest and diaphragm was performed for evaluation of diaphragmatic movement during respiration, including sniff. FINDINGS: RIGHT DIAPHRAGM: There is significantly diminished movement of the right hemidiaphragm. LEFT DIAPHRAGM: There is normal movement of the left hemidiaphragm. SNIFF: Normal movement. IMPRESSION: 1. Significantly diminished movement of the right hemidiaphragm. 2. Normal movement of the left hemidiaphragm. THIS IS AN ELECTRONICALLY VERIFIED FINAL REPORT 09/03/2024 2:51 PM - Electronically signed by Checo Cleary D.O. 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 Breathing troubles x 1-2 years Per pt,has restricted breathing. FT 0.3 min Dose 371.3 mGy COMPARISON: 06/20/2024 RADIATION DOSE: Dose: 78440.42 uGym2 Dose Area Product (DAP) TECHNIQUE: Fluoroscopy of the chest and diaphragm was performed forevaluation of diaphragmatic movement during respiration, including sniff. FINDINGS: RIGHT DIAPHRAGM: There is significantly diminished movement of the right hemidiaphragm. LEFT DIAPHRAGM: There is normal movement of the left hemidiaphragm. SNIFF: Normal movement. IMPRESSION: 1. Significantly diminished movement of the right hemidiaphragm. 2. Normal movement of the left hemidiaphragm. THIS IS AN ELECTRONICALLY VERIFIED FINAL REPORT 09/03/2024 2:51 PM - Electronically signed by Checo Cleary D.O. PS: PS Report ID: [id number] Reading Location: [id number] Gregory Curtis MD IMG FLUOROSCOPY PROCED URES Final Result * CT Chest WO Contrast (09/03/2024 2:15 PM PRESIDENT PRACTICING UROLOGIST) Anatomical Region Laterality Modality Body N/A Computed Tomogra phy 09/07/2024 1:09 PM PRESIDENT PRACTICING UROLOGIST Narrative 09/07/2024 1:12 PM PRESIDENT PRACTICING UROLOGIST EXAM DESCRIPTION: CT CHEST WO CONTRAST REASON FOR STUDY: OTHER DISORDER OF LUNG Follow up from previous exam done on 06/23/24, no current complaints, former smoker TECHNIQUE: CT scan of the chest performed without intravenous contrast using helical scanning technique. Reconstructed coronal and sagittal MPR images reviewed. All images stored on PACS. Automated exposure control was used as a dose optimization technique for this examination. COMPARISON: 06/20/2024 FINDINGS: The sensitivity for detection of solid visceral lesions is diminished without the use of intravenous contrast. LUNGS: Moderate elevation right hemidiaphragm is seen with atelectasis in the right middle lobe and right lower lobe unchanged probably related to prior cardiac surgery. The lungs are otherwise clear. No suspicious nodule or pneumonia. Minimal fibrotic changes in the left lung base. PLEURA: No effusion. No pneumothorax. MEDIASTINUM/NEHEMIAS: No identified masses or abnormal nodes. HEART: Changes from CABG. Mild cardiomegaly. No pericardial effusion. CORONARY ARTERY CALCIFICATION: Severe VASCULATURE: No thoracic aortic aneurysm. AXILLA: No adenopathy. CHEST WALL: Changes from median sternotomy with fusion of the sternal halves. HARDWARE/LINES/TUBES: Pacemaker with leads projecting in the right atrium and right ventricle. CABG changes. UPPER ABDOMEN: No significant abnormality. MUSCULOSKELETAL: No significant abnormality. OTHER: No other significant abnormality. IMPRESSION: 1. Moderate elevation right hemidiaphragm with basilar atelectasis. Probably related to prior CABG. THIS IS AN ELECTRONICALLY VERIFIED FINAL REPORT 09/07/2024 1:12 PM - Electronically signed by Navi RIVERA: MIGUEL Report ID: [id number] Reading Location: [place] [id number] Procedure Note Navi Willis MD - 09/07/2024 EXAM DESCRIPTION: CT CHEST WO CONTRAST REASON FOR STUDY: OTHER DISORDER OF LUNG Follow up from previous exam done on 06/23/24, no current complaints,former smoker TECHNIQUE: CT scan of the chest performed without intravenous contrastusing helical scanning technique. Reconstructed coronal and sagittal MPR images reviewed. All images stored on PACS. Automated exposure control was usedas a dose optimization technique for this examination. COMPARISON: 06/20/2024 FINDINGS: The sensitivity for detection of solid visceral lesions is diminishedwithout the use of intravenous contrast. LUNGS: Moderate elevation right hemidiaphragm is seen with atelectasisin the right middle lobe and right lower lobe unchanged probably related toprior cardiac surgery. The lungs are otherwise clear. No suspicious nodule or pneumonia. Minimal fibrotic changes in the left lung base. PLEURA: No effusion. No pneumothorax. MEDIASTINUM/NEHEMIAS: No identified masses or abnormal nodes. HEART: Changes from CABG. Mild cardiomegaly. No pericardial effusion. CORONARY ARTERY CALCIFICATION: Severe VASCULATURE: No thoracic aortic aneurysm. AXILLA: No adenopathy. CHEST WALL: Changes from median sternotomy with fusion of the sternal halves. HARDWARE/LINES/TUBES: Pacemaker with leads projecting in the rightatrium and right ventricle. CABG changes. UPPER ABDOMEN: No significant abnormality. MUSCULOSKELETAL: No significant abnormality. OTHER: No other significant abnormality. IMPRESSION: 1. Moderate elevation right hemidiaphragm with basilar atelectasis. Probably related to prior CABG. THIS IS AN ELECTRONICALLY VERIFIED FINAL REPORT 09/07/2024 1:12 PM - Electronically signed by Navi RIVERA: MIGUEL Report ID: [id number] Reading Location: [id number] Gregory Curtis MD IMG CT PROCEDURES Jeannie l Result * DEXA SCAN (01/12/2013) DEXA Scan Normal Anatomical Region Laterality Modality Other Historical Provider HEALTH MAINTENANCE Final Result from Last 3 Months or Most Recently Relevant to Health Maintenance Insurance AETNA MEDICARE AETNA MEDICARE AETNA MEDICARE Advance Directives For more information, please contact: [phone] * Full Code (Latest Code Status on File) Date Activated Date Inactivated Comments 11/13/2024 8:48 AM 11/13/2024 3:14 PM * Full Code Date Activated Date Inactivated Comments 11/13/2024 8:48 AM 11/13/2024 8:48 AM * Full Code Date Activated Date Inactivated Comments 03/23/2022 9:20 AM 03/23/2022 3:54 PM * Full Code Date Activated Date Inactivated Comments 03/23/2022 9:20 AM 03/23/2022 9:20 AM * Full Code Date Activated Date Inactivated Comments 07/14/2019 6:55 AM 07/14/2019 12:56 PM Care Teams Light Oil Operator Relationship Specialty Start Date End Date Easton Quintana MD [address] [place] [address] PCP - General 11/30/16 Jim Watkins MD [address] [facility] [place] [id number] Medical Oncologist/Director Of Business Applications Hematology and Oncology 12/29/19
--- OUTSIDE RECORDS SUMMARY | 2024-11-19 11:58 | XMS_ITS | Encounter Summary ---
Author Organization [facility] Healthcare Address [address] [place] [address] Care Team Providers Care Statistical Clerk Advertising Name Role Phone Easton Quintana MD Primary Care Provider + Jim Watkins MD Unavailable [phone] Encounter Details Date Type Department Care Team (Late st Contact Info) Description 11/18/2024 Results Follow-Up [facility] Gastroenterology at [address] [place] [address] Sharita Wei MD [address] [place] [address] Social History Tobacco Use Types Packs/Day Years Used Date Smoking Tobacco: Former Cigarettes 0.5 15 0 02/07/1959 - 1972 Smokeless Tobacco: Never Alcohol Use Standard Drinks/Week Comments Yes 0 [...] on file Legal Sex Female 8:07 AM BERRY PLANTER Gender Identity Female 09/12/2021 8:12 PM BERRY PLANTER Sexual Orientation Straight 09/12/2021 8: 12 PM BERRY PLANTER documented as of this encounter Plan of Treatment Not on file documented as of this encounter Visit Diagnoses Not on filedocumented in this encounter Care Teams Statistical Clerk Advertising Relationship Specialty Start Date End Date Easton Quintana MD [address] [facility] [place] [address] PCP - General 11/30/16 Jim Watkins MD [address] [facility] [place] [address] Medical Oncologist/Clinical Services Assistant Hematology and Oncology 12/29/19 documented as of this encounter
--- OUTSIDE RECORDS SUMMARY | 2024-11-19 11:58 | XMS_ITS | Clinical Summary ---
Author Organization [facility] Address [address] [facility] [place] [address] Care Team Providers Care Statistical Analyst Name Role Phone Bogdan Rucker MD Unavailable [phone] Easton Quintana MD Primary Care Provider [phone] Source Comments [facility] [employer],non-owned Affiliates and Associated Physician Practices is amultiple site organization consisting of ambulatory clinics and hospital sitesin [place] and [place]. This disclosure is being madepursuant to the Care Everywhere program and may not contain all information available regarding this patient. Last updated 18.[facility] [employer] Allergies Active Allergy Reactions Criticality Noted Date Comments Sulfa Drugs Rash Low 10/26/2011 Medications * Be aware that medications may not be up to date on this document. Alwaysverify current medications with the patient. Medication Sig Dispensed Refills Start Date End Date Status Niacin, Antihyperlipidemic, (NIASPAN PO) Take 1,000 mg by mouth once daily. Active simvastatin (ZOCOR) 40 MG tablet Take 40 mg by mouth at bedtime. Active Multiple Vitamins-Minerals (ICAPS PO) Take by mouth every other day as needed. Active Flaxseed, Linseed, (FLAXSEED OIL PO) Take 1,000 mg by mouth once daily after breakfast. Instructed patient to stop 1 week before surgery. Active Yleaphm-Kbaptmdcl-Eisfr in D (CALCIUM MAGNESIUM PO) Take by mouth. ALSO CONTAINS ZINC Active vitamin C (ASCORBIC ACID) 500 MG tablet Take 1,000 mg by mouth once daily. Active diphenhydramine-APAP, sleep, (TYLENOL PM ES) 25-500 MG tablet Take 1 Tab by mouth nightly as needed. Active hydrocodone-acetaminoph en (NORCO) 5-325 MG tablet Take 1-2 Tabs by mouth every 6 hours as needed for Pain. Called to [facility] [phone] 50 Tab 1 04/29/2013 Active iron polysaccharides (NIFEREX 150) 150 MG capsule Take 1 Cap by mouth once daily. 30 Cap 0 04/30/2013 Active nadolol (CORGARD) 80 MG tablet Take 1 Tab by mouth once daily after breakfast. Instructed to take AM of surgery 04/30/2013 Active Active Problems Problem Noted Date Diagnosed Date Knee joint replacement by other means 11/25/2012 Osteoarthrosis involving lower leg 08/19/2012 Overview (11/26/2015): 2015 IMO Updt Immunizations Name Administration Dates Next Due PNEUMOCOCCAL PPSV23 04/27/2002 Social History Tobacco Use Types Packs/Day Years Used Date Smoking Tobacco: Former Cigarettes 0 09/02/1959 - 09/02/1977 Smokeless Tobacco: Never Comments:0.5 Alcohol Use Standard Drinks/Week Comments Yes 8.3 (1 standard drink = 0.6 oz p ure alcohol) Sex and Gender Information Value Date Recorded Sex Assigned at Not on file Gender Identity Not on file Sexual Orientation Not on file Last Filed Vital Signs Vital Sign Reading Time Taken Comments Blood Pressure 96/44 04/30/2013 10:[address] Ramirez aware Pulse 79 04/30/2013 10:31 AM CDT Temperature 37.1 C (98.7 F) 04/30/2013 5:58 AM CDT Respiratory Rate 16 04/30/2013 5:58 AM CDT Oxygen Saturation 90% 04/30/2013 5:5 8 AM CDT Inhaled Oxygen Concentration - - Weight 92.1 kg (203 lb) 04/27/2013 2:27 PM CDT Height 160 cm (5' 3 ) 04/27/2013 2:27 PM CDT Body Mass Index 35.96 04/27/2013 2:27 PM CDT Plan of Treatment Health Maintenance Due Date Last Done Comments BONE DENSITY TESTING 1945 MEDICARE AWV 12 MONTHS 1945 DTAP/TDAP/TD VACCINES (1 - Tdap) 1962 ZOSTER VACCINE (1 of 2) 1993 PNEUMOCOCCAL VACCINE 50+ (2 of 2 - PCV) 04/27/2003 04/27/2002 Respiratory Syncytial Virus (RSV) Vaccine Pt: or over 60 yrs (1 - 1-dose 75+ series) 2018 COVID-19 VACCINE (1 - 2023-2 5 season) 2024 INFLUENZA VACCINE (#1) 2024 DEPRESSION SCREENING 09/02/2024 HEPATITIS B VACCINE Aged Out No longe r eligible based on patient's age to complete this topic HIB VACCINE Aged Out No longer eligi ble based on patient's age to complete this topic HPV VACCINE Aged Out No longer eligi ble based on patient's age to complete this topic MENINGOCOCCAL (Group B) VACC INE SHARED DECISION-MAKING Aged Out No longer eligibl e based on patient's age to complete this topic MENINGOCOCCAL GROUPS A/C/Y/W VACCINE Aged Out No longer eligible b ased on patient's age to complete this topic Medical Devices Implanted Type Area Relay Record Clerk Device Identifier Shelf Expiration Date Model / Serial / Lot Patella, Small Implanted:Qty: 1 on 11/03/2012 by Bogdan Rucker MD at [facility] Patella Left: Knee 08/02/2017 [id number] / / Mx Bone Luiz [place] - [id number] Implanted:Qty: 1 on 11/03/2012 by Bogdan Rucker MD at [facility] Left: Knee [employer] 06/02/2014 [id number] / [id number] / Ty Tibial I Beam Fix Bar 71mm Implanted:Qty: 1 on 11/03/2012 by Bogdan Rucker MD at [facility] Left: Knee [employer] 08/02/2022 [id number] / / [id number] Ins Kn Vangurd Fem Cocr L-Intlok 65.0mm Implanted:Qty: 1 on 11/03/2012 by Bogdan Rucker MD at [facility] Left: Knee [employer] 12/01/2021 [id number] / / [id number] Biomet Tibial Bearing 10x71 Implanted:Qty: 1 on 11/03/2012 at [facility] 09/02/2017 [id number] / / Luiz Bone [place] Hv Implanted:Qty: 1 on 04/27/2013 by Bogdan Rucker MD at [facility] Right: Knee [employer] 12/30/2014 [id number] / / [id number] Ty Tibial I Beam Fix Bar 71mm Implanted:Qty: 1 on 04/27/2013 by Bogdan Rucker MD at [facility] Right: Knee [employer] 03/01/2023 [id number] / / [id number] Patella 31mm - Small Implanted:Qty: 1 on 04/27/2013 by Bogdan Rucker MD at [facility] Right: Knee 03/01/2018 [id number] / / [id number] Vanguard Femoral 65mm Right Implanted:Qty: 1 on 04/27/2013 by Bogdan Rucker MD at [facility] Right: Knee 01/30/2023 [id number] / / [id number] Brdg Tib Berenice Stbl 12mm X 71mm Implanted:Qty: 1 on 04/27/2013 by Bogdan Rucker MD at [facility] Right: Knee [employer] 04/01/2018 [id number] / / [id number] Advance Directives Documents on File Type Date Recorded Patient Carbon Brusher Assembler Expl anation Adv Directive/Living Will/POA 11/07/2012 1:20 PM * FULL RESUSCITATION (Latest Code Status on File) Date Activated Date Inactivated Comments 04/27/2013 11:35 AM 04/30/2013 1:15 PM * FULL RESUSCITATION Date Activated Date Inactivated Comments 11/03/2012 11:14 AM 11/06/2012 11:48 AM Care Teams Statistical Analyst Relationship Specialty Start Date End Date Easton Quintana MD PCP - General 10/26/11 Bogdan Rucker MD Orthopedic Surgery 10/24/11
--- OUTSIDE RECORDS SUMMARY | 2024-11-19 11:58 | XMS_ITS | CONTINUITY OF CARE DOCUMENT ---
Author Name ho, ho Address Unknown Organization [facility] Address [address] [place] [address] Phone [phone] Care Team Providers Care Hat Mender Name Role Phone Tristen PETIT, Wai Unavailable NILES PETIT, JESÚS Unavailable [phone] JESÚS CAGE MD Unavailable [phone] PROBLEMS Condition Status Date Provider Notes S/P Dual chamb PCM - Biotron ik ( MRI Safe) active Christine Elliott Dyspnea on exertion active Beltran Eason Lymphedema active Wai Ramon MD Dizziness active Wai Ramon MD Venous insufficiency active Wai urrutia MD Leg edema, bilateral active Silvino Fuentes Tremor, both hands, L > R active Silvino fierro Carotid bruit bilateral active Wai canales MD Sick sinus syndrome active Augusta Osman [employer] Dizziness and giddiness active Wai canales MD Chest pain-type to be determined active Samantha Ramon MD Atrial fib paroxysmal active Wai aguilera MD CAD -s/p 4V CABG 2000 active Silvino Fuentes Sleep apnea active Wai Ramon MD HTN essential active Wai Ramon MD Dyslipidemia mixed active Wai Ramon MD ENCOUNTERS Date Type Provider Location Encounter Diag nosis - In-person encounter Office Visit Wai aRmon MD [facility] - In-person encounter Office Visit Wai Ramon MD [facility] - In-person encounter Office Visit Andrew Lucio MD [facility] - In-person encounter Office Visit Wai Ramon MD [facility] DizzinessLymphedema - In-person encounter Office Visit Andrew Lucio MD [facility] - In-person encounter Office Visit Andrew Lucio MD [facility] - In-person encounter Office Visit Andrew Lucio MD [facility] - In-person encounter Office Visit Wai Ramon MD [facility] Venous insufficiency - In-person encounter Office Visit Wai Ramon MD [facility] - In-person encounter Office Visit Wai Ramon MD [facility] Tremor, both hands, L > RLeg edema, bilateral - In-person encounter Office Visit Wai Ramon MD [facility] Carotid bruit bilateral - In-person encounter Office Visit Wai Ramon MD [facility] - In-person encounter Office Visit Andrew Lucio MD [facility] - In-person encounter Office Visit Wai Ramon MD [facility] CAD -s/p 4V CABG 2000 - In-person encounter Office Visit Wai Ramon MD [facility] Sick sinus syndrome - In-person encounter Office Visit Wai Ramon MD [facility] Dizziness and giddiness - In-person encounter Office Visit Wai Ramon MD [facility] - In-person encounter Office Visit Wai Ramon MD [facility] Chest pain-type to be determined - In-person encounter Office Visit Wai Ramon MD [facility] - In-person encounter Office Visit Wai Ramon MD [facility] - In-person encounter Office Visit Wai Ramon MD [facility] Dyslipidemia mixedHTN essentialSleep apneaCAD -s/p 4V CABG 2000Atrial fib paroxysmal VITAL SIGNS Date Observation Value Provider Body Mass Index (Ratio) 36.21 kg/m2 Sharif Wilde blood pressure, cuff size large Ke rri Gruenenfeld blood pressure, diastolic 70 mm[Hg] Ke rri Gruenenfeld blood pressure, systolic 126 mm[Hg] Chantel ri Zoila oxygen saturation, oximetry 93 % Adelaide Zoila respiratory rate E&M 12 /min [facility] pulse rate 71 /min Adelaide Abimael [facility] weight E&M 211 [lb_av] Adelaide Julionedavie [facility] height E&M 64 [in_i] Adelaide Julionepennie [facility] Body Mass Index (Ratio) 36.73 kg/m2 Tariq as Elliot blood pressure, cuff size regular Ke rri Gruenenfelder blood pressure, diastolic 90 mm[Hg] Ke rri Gruenenfelder blood pressure, systolic 142 mm[Hg] Chantel ri Gruenenfelder oxygen saturation, oximetry 91 % Adelaide Guerrero respiratory rate E&M 12 /min Adelaide G nickenenfelder pulse rate 70 /min Adelaide Celenae er weight E&M 214 [lb_av] Adelaide Celenae marjorieer height E&M 64 [in_i] Adelaide Abimael amador Body Mass Index (Ratio) 36.04 kg/m2 Sund joe Lucio MD blood pressure, diastolic 84 mm[Hg] jairo Bolanos blood pressure, systolic 160 mm[Hg] She caleb Bolanos oxygen saturation, oximetry 93 % Vaishali Bolanos pulse rate 71 /min Vaishali Bolanos respiratory rate E&M 18 /min Vaishali Cici weight E&M 210 [lb_av] Vaishali Bolanos blood pressure, cuff size regular jairo Bolanos height E&M 64 [in_i] Vaishaligen Bolanos Body Mass Index (Ratio) 36.56 kg/m2 Kory Ramon MD blood pressure, diastolic 92 mm[Hg] Ke rri Liamuenejere blood pressure, cuff size regular Ke rri Liamuenejere blood pressure, systolic 142 mm[Hg] Ker ri Guerrero oxygen saturation, oximetry 94 % Adelaide Guerrero respiratory rate E&M 12 /min Adelaide G nickenenfcastillo pulse rate 70 /min Adelaide Abimael amador weight E&M 213 [lb_av] Adelaide Abimael amador height E&M 64 [in_i] Adelaide Abimael [facility] Body Mass Index (Ratio) 37.07 kg/m2 Sund joe Lucio MD Inhaled O2 2 L/min Jennifer Hinojosa blood pressure, cuff size regular Fa vinny Clancy blood pressure, diastolic 89 mm[Hg] Fa vinny Clancy blood pressure, systolic 144 mm[Hg] Allen leandro Clancy oxygen saturation, oximetry 92 % Jennifer Clancy respiratory rate E&M 16 /min Jennifer Leung iller pulse rate 70 /min Jennifer Clancy weight E&M 216 [lb_av] [facility] height E&M 64 [in_i] [facility] Body Mass Index (Ratio) 37.07 kg/m2 Sund joe Lucio MD blood pressure, diastolic 77 mm[Hg] Catina Milian blood pressure, systolic 135 mm[Hg] [facility] heljeremias Milian blood pressure, cuff size large Catina Milian oxygen saturation, oximetry 94 % Senait Milian respiratory rate E&M 16 /min Darlene Milian pulse rate 70 /min Senait cantu weight E&M 216 [lb_av] Senait cantu height E&M 64 [in_i] Senait cantu Body Mass Index (Ratio) 36.21 kg/m2 Sund joe Lucio MD blood pressure, diastolic 78 mm[Hg] Catina Milian blood pressure, systolic 141 mm[Hg] Sandip helle Milian oxygen saturation, oximetry 95 % Senait Milian pulse rate 72 /min Senait cantu weight E&M 211 [lb_av] Senait cantu respiratory rate E&M 16 /min Darlene Milian blood pressure, cuff size large Catina Milian height E&M 64 [in_i] Senait cantu Body Mass Index (Ratio) 36.21 kg/m2 Kory Ramon MD blood pressure, diastolic 96 mm[Hg] Li nkLogic blood pressure, systolic 146 mm[Hg] Romi kLogic blood pressure, cuff size regular Ke rri Gruenenfelder blood pressure, diastolic 96 mm[Hg] Ke rri Gruenenfelder blood pressure, systolic 146 mm[Hg] Ker ri Gruenenfelder oxygen saturation, oximetry 95 % Adelaide Gruenenfelder respiratory rate E&M 12 /min Adelaide G ruenenfelder pulse rate 70 /min Adelaide Gruenenfe lder weight E&M 211 [lb_av] Adelaide Gruenenfe lder height E&M 64 [in_i] Adelaide Gruenenfe lder blood pressure, diastolic 80 mm[Hg] Li nkLogic blood pressure, systolic 142 mm[Hg] Romi kLogic blood pressure, cuff size large Ke rri Gruenenfelder blood pressure, diastolic 80 mm[Hg] Ke rri Gruenenfelder blood pressure, systolic 142 mm[Hg] Ker ri Gruenenfelder oxygen saturation, oximetry 91 % Adelaide Gruenenfelder respiratory rate E&M 14 /min Adelaide G ruenenfelder pulse rate 69 /min Adelaide Gruenenfe lder height E&M 64 [in_i] Adelaide Gruenenfe lder Body Mass Index (Ratio) 36.90 kg/m2 Kory Ramon MD blood pressure, diastolic 86 mm[Hg] Ke rri Gruenenfelder blood pressure, systolic 159 mm[Hg] Ker ri Gruenenfelder blood pressure, cuff size large Ke rri Gruenenfelder oxygen saturation, oximetry 95 % Adelaide Gruenenfelder respiratory rate E&M 16 /min Adelaide G ruenenfelder pulse rate 81 /min Adelaide Gruenenfe lder weight E&M 215 [lb_av] Adelaide Gruenenfe lder height E&M 64 [in_i] Adelaide Gruenenfe lder Body Mass Index (Ratio) 36.90 kg/m2 Kory Ramon MD blood pressure, diastolic 70 mm[Hg] Ke rri Gruenenfelder blood pressure, systolic 161 mm[Hg] Ker ri Gruenenfelder blood pressure, cuff size large Ke rri Gruenenfelder oxygen saturation, oximetry 96 % Adelaide Gruenenfelder respiratory rate E&M 16 /min Adelaide G ruenenfelder pulse rate 86 /min Adelaide Gruenenfe lder weight E&M 215 [lb_av] Adelaide Gruenenfe lder height E&M 64 [in_i] Adelaide Gruenenfe lder Body Mass Index (Ratio) 36.56 kg/m2 Kory Ramon MD blood pressure, cuff size large Ke rri Gruenenfelder blood pressure, diastolic 90 mm[Hg] Ke rri Gruenenfelder blood pressure, systolic 162 mm[Hg] Ker ri Gruenenfelder oxygen saturation, oximetry 94 % Adelaide Gruenenfelder respiratory rate E&M 14 /min Adelaide G ruenenfelder pulse rate 88 /min Adelaide Gruenenfe lder weight E&M 213 [lb_av] Adelaide Gruenenfe lder height E&M 64 [in_i] Adelaide Gruenenfe lder Body Mass Index (Ratio) 36.39 kg/m2 Tim Robertsont blood pressure, cuff size large Ke rri Gruenenfelder blood pressure, diastolic 60 mm[Hg] Ke rri Gruenenfelder blood pressure, systolic 114 mm[Hg] Ker ri Gruenenfelder oxygen saturation, oximetry 97 % Adelaide Gruenenfelder respiratory rate E&M 14 /min Adelaide G ruenenfelder pulse rate 111 /min Adelaide Gruenenfe lder weight E&M 212 [lb_av] Adelaide Gruenenfe lder height E&M 64 [in_i] Adelaide Gruenenfe lder Body Mass Index (Ratio) 35.70 kg/m2 Taew on Nathanael blood pressure, cuff size large Ke rri Gruenenfelder blood pressure, diastolic 70 mm[Hg] Ke rri Gruenenfelder blood pressure, systolic 112 mm[Hg] Ker ri Gruenenfelder oxygen saturation, oximetry 97 % Adelaide Gruenenfelder respiratory rate E&M 16 /min Adelaide G ruenenfelder pulse rate 112 /min Adelaide Gruenenfe lder weight E&M 208 [lb_av] Adelaide Gruenenfe lder height E&M 64 [in_i] Adelaide Gruenenfe lder Body Mass Index (Ratio) 35.70 kg/m2 Kory Ramon MD blood pressure, diastolic 72 mm[Hg] Mindy reardonLogic blood pressure, systolic 122 mm[Hg] Romi og oxygen saturation, oximetry 95 % Adelaide Dallaskristian pulse rate 118 /min Adelaide Varghese [facility] respiratory rate E&M 18 /min Adelaide jorgeelder blood pressure, cuff size large Ke rri Zoila blood pressure, diastolic 72 mm[Hg] Ke rri Celenaeld blood pressure, systolic 122 mm[Hg] Chantel Masters weight E&M 208 [lb_av] Adelaide Varghese [facility] height E&M 64 [in_i] Adelaide Varghese [facility] Body Mass Index (Ratio) 36.04 kg/m2 Cm paula Huffman blood pressure, diastolic 90 mm[Hg] Mindy [facility] blood pressure, systolic 135 mm[Hg] Romi [facility] blood pressure, diastolic 90 mm[Hg] Zhao aguilera [place] blood pressure, systolic 135 mm[Hg] Christina Porter oxygen saturation, oximetry 98 % Gali Porter pulse rate 130 /min Gali Porter respiratory rate E&M 16 /min Gali Porter blood pressure, cuff size regular Zhao aguilera [place] Inhaled O2 2 L/min Gali Porter blood pressure, resting Yes Juan Ortiz weight E&M 210 [lb_av] Gali Porter height E&M 64 [in_i] Gali Porter Body Mass Index (Ratio) 36.73 kg/m2 Anders Phillips blood pressure, cuff size large Ke rri Liamaleenacastillo blood pressure, diastolic 90 mm[Hg] Ke rri Celenacastillo blood pressure, systolic 142 mm[Hg] Chantel Dallascastillo oxygen saturation, oximetry 96 % Adelaide Wheelerenzo respiratory rate E&M 18 /min Adelaide Steel que pulse rate 78 /min Adelaide Varghese [facility] weight E&M 214 [lb_av] Adelaide Varghese er height E&M 64 [in_i] Adelaide Varghese [facility] Body Mass Index (Ratio) 36.73 kg/m2 Rashaad Crocker NP blood pressure, diastolic 72 mm[Hg] Huseyin Rankin blood pressure, systolic 132 mm[Hg] Danielle singh [facility] pulse rate 68 /min [facility] respiratory rate E&M 16 /min [facility]ulugeta [facility], oximetry 98 % Mulugeta [facility] weight E&M 214 [lb_av] On license of [facility] height E&M 64 [in_i] On license of [facility] Body Mass Index (Ratio) 35.36 kg/m2 Just in [facility] respiratory rate E&M 18 /min Amada Delgadillo pulse rate 58 /min Amada Delgadillo oxygen saturation, oximetry 98 % Amada Delgadillo weight E&M 206 [lb_av] Amada Delgadillo blood pressure, diastolic 78 mm[Hg] Saul daria Delgadillo blood pressure, systolic 110 mm[Hg] Ronak ramirez Delgadillo blood pressure, cuff size regular Saul daria Delgadillo height E&M 64 [in_i] Amada Delgadillo Body Mass Index (Ratio) 35.15 kg/m2 [place] blood pressure, cuff size large Te isael Flowers blood pressure, diastolic 90 mm[Hg] Te isael Kristie blood pressure, systolic 130 mm[Hg] Bud Flowers oxygen saturation, oximetry 97 % Flori Flowers respiratory rate E&M 18 /min Flori Flowers pulse rate 65 /min Flori Flowers height E&M 64 [in_i] Flori Flowers weight E&M 204.8 [lb_av] Flori gomez blood pressure, resting Yes Hao elvi Kristie ALLERGIES Allergy Name Onset Date Reaction Criticality Status SULFA Low Criticality active RESULTS Date Observation Value Provider Reference Range Interpretation Location prothrombin time (patient) 11.4 s [facility] 9.0-11.5 Normal international normalized ratio (INR) 1.1 [facility] Normal basophils as percent of blood leukocytes 0.6 % [facility] Normal eosinophils as percent of blood leukocytes 1.7 % [facility] Normal monocyte count, blood 6.8 % [facility] Normal lymphocyte count, blood 24.1 % [facility] Normal neutrophils as percent of blood leukocytes 66.8 % [facility] Normal basophils, absolute, manual 52 cells/mcL [facility] 0-200 Normal eosinophils, absolute, manual 146 cells/mcL [facility] 15-500 Normal monocytes, absolute, manual 585 cells/mcL [facility] 200-950 Normal lymphocytes, absolute 2073 CELLS/UL [facility] 850-3900 Normal Absolute Neutrophil count 5745 cells/mcL [facility] 6723-3806 Normal mean platelet volume 9.2 fL [facility] 7.5-12.5 Normal platelet count 206 THOUSAND/UL [facility] 140-400 Normal red blood cell distribution width 12.1 % [facility] 11.0-15.0 Normal mean corpuscular hemoglobin concentration, RBC 34.5 G/DL [facility] 32.0-36.0 Normal mean corpuscular hemoglobin, RBC 36.3 pg [facility] 27.0-33.0 High mean corpuscular volume, RBC 105.1 fL [facility] 80.0-100.0 High hematocrit, blood 39.4 % [facility] 35.0-45.0 Normal hemoglobin electrophoresis, blood 13.6 [facility] 11.7-15.5 Normal erythrocyte (RBC) count 3.75 MILLION/UL [facility] 3.80-5.10 Low leukocyte (white blood cells) count, blood 8.6 THOUSAND/UL [facility] 3.8-10.8 Normal calcium, serum 9.2 mg/dL [facility] 8.6-10.4 Normal carbon dioxide, venous blood 27 mmol/L [facility] 20-32 Normal chloride, serum 103 mmol/L [facility] 98-110 Normal potassium, serum 4.0 mmol/L [facility] 3.5-5.3 Normal sodium, serum 141 mmol/L [facility] 135-146 Normal urea nitrogen/creatinine ratio, serum NOT APPLICABLE (calc) [facility] 6-22 creatinine, serum 0.77 mg/dL [facility] 0.60-1.00 Normal urea nitrogen, blood 17 mg/dL [facility] 7-25 Normal blood glucose, random 110 mg/dL [facility] 65-99 High cholesterol, non-HDL, total 123 MG/DL (CALC) [facility] <130 Normal cholesterol/HDL ratio, serum, percent 3.1 (calc) [facility] <5.0 Normal LDL cholesterol, serum * mg/dL (calc) [facility] triglyceride, serum, fasting 404 mg/dL [facility] <150 High HDL cholesterol, serum 58 mg/dL [facility] > OR = 50 Normal cholesterol, serum 181 mg/dL [facility] <200 Normal Estimated Glomerular Filtration Rate (calc) 86 mL/min/{1.73 _m2} [facility] C, [place] [address] cholesterol, non-HDL, total 102 mg/dL [facility] C, [place] [address] HDL CHOLESTEROL 62 mg/dL [facility] >=40 Normal C, [place] [address] triglyceride, serum, fasting 209 mg/dL [facility] <=149 High C, [place] [address] cholesterol, serum 164 mg/dL [facility] 30-199 Normal C, [place] [address] NT-pro BNP 92 [facility] <=450 Normal C, [place] [address] aspartate aminotransferase (SGOT), serum 24 1/L [facility] 10-45 Normal C, [place] [address] alanine aminotransferase (SGPT), serum 19 1/L [facility] 7-45 Normal C, [place] [address] Alkaline phosphatase 48 [facility] 40-130 Normal C, [place] [address] albumin, serum 4.3 g/dL [facility] 3.5-5.0 Normal C, [place] [address] protein, total, serum 7.9 g/dL [facility] 6.5-8.5 Normal C, [place] [address] bilirubin, serum, total 0.3 mg/dL [facility] 0.1-1.2 Normal C, [place] [address] calcium, serum 9.5 mg/dL [facility] 8.5-10.3 Normal C, [place] [address] blood glucose, random 102 mg/dL [facility] 70-199 Normal C, [place] [address] creatine, serum 0.72 mg/dL [facility] 0.60-1.10 Normal C, [place] [address] urea nitrogen, blood 14 mg/dL [facility] 8-25 Normal C, [place] [address] anion gap, serum 10 mmol/L [facility] 2-15 Normal C, [place] [address] carbon dioxide, venous blood 28 mmol/L [facility] 22-32 Normal C, [place] [address] chloride, serum 102 mmol/L [facility] 97-110 Normal C, [place] [address] potassium, serum 4.3 MMOL/L [facility] 3.3-4.9 Normal , [place] [address] sodium, serum 140 mmol/L [facility] 135-145 Normal C, [place] [address] thyroid stimulating hormone, serum 2.13 MCIUNIT/ML [facility] 0.30-4.20 Normal C, [place] [address] prothrombin time (patient) 11.4 s [facility] 9.0-11.5 Normal international normalized ratio (INR) 1.1 [facility] Normal alanine aminotransferase (SGPT), serum 20 1/L [facility] 6-29 Normal aspartate aminotransferase (SGOT), serum 20 1/L [facility] 10-35 Normal alkaline phosphatase, serum 49 1/L [facility] 37-153 Normal bilirubin, serum, total 0.4 mg/dL [facility] 0.2-1.2 Normal albumin/globulin ratio, serum 1.2 (calc) [facility] 1.0-2.5 Normal globulins, serum, total 3.3 G/DL (CALC) [facility] 1.9-3.7 Normal albumin, serum 4.0 g/dL [facility] 3.6-5.1 Normal protein, total, serum 7.3 g/dL [facility] 6.1-8.1 Normal calcium, serum 9.3 mg/dL [facility] 8.6-10.4 Normal carbon dioxide, venous blood 32 mmol/L [facility] 20-32 Normal chloride, serum 105 mmol/L [facility] 98-110 Normal potassium, serum 4.3 mmol/L [facility] 3.5-5.3 Normal sodium, serum 144 mmol/L [facility] 135-146 Normal urea nitrogen/creatinine ratio, serum NOT APPLICABLE (calc) [facility] 6-22 Estimated Glomerular Filtration Rate (calc) 74 mL/min/{1.73 _m2} [facility] > OR = 60 Normal creatinine, serum 0.87 mg/dL [facility] 0.60-0.93 Normal urea nitrogen, blood 15 mg/dL [facility] 7-25 Normal blood glucose, random 121 mg/dL [facility] 65-99 High magnesium, serum 2.4 mg/dL [facility] 1.5-2.5 Normal prothrombin time (patient) 11.4 s [facility] 9.0-11.5 Normal international normalized ratio (INR) 1.1 [facility] Normal PTT patient 25 s [facility] 23-32 Normal basophils as percent of blood leukocytes 0.8 % [facility] Normal eosinophils as percent of blood leukocytes 3.1 % [facility] Normal monocyte count, blood 6.5 % [facility] Normal lymphocyte count, blood 20.7 % [facility] Normal neutrophils as percent of blood leukocytes 68.9 % [facility] Normal basophils, absolute, manual 52 cells/mcL [facility] 0-200 Normal eosinophils, absolute, manual 202 cells/mcL [facility] 15-500 Normal monocytes, absolute, manual 423 cells/mcL [facility] 200-950 Normal lymphocytes, absolute 1346 CELLS/UL [facility] 850-3900 Normal Absolute Neutrophil count 4479 cells/mcL [facility] 9325-0401 Normal mean platelet volume 8.8 fL [facility] 7.5-12.5 Normal platelet count 360 THOUSAND/UL [facility] 140-400 Normal red blood cell distribution width 14.5 % [facility] 11.0-15.0 Normal mean corpuscular hemoglobin concentration, RBC 31.3 G/DL [facility] 32.0-36.0 Low mean corpuscular hemoglobin, RBC 30.4 pg [facility] 27.0-33.0 Normal mean corpuscular volume, RBC 97.0 fL [facility] 80.0-100.0 Normal hematocrit, blood 32.6 % [facility] 35.0-45.0 Low hemoglobin electrophoresis, blood 10.2 [facility] 11.7-15.5 Low erythrocyte (RBC) count 3.36 MILLION/UL [facility] 3.80-5.10 Low leukocyte (white blood cells) count, blood 6.5 THOUSAND/UL [facility] 3.8-10.8 Normal hyaline casts, urine NONE SEEN [facility] NONE SEEN Normal urine crystals, microscopic MODERATE /HPF [facility] NONE OR FEW Abnormal bacteria, urine microscopy NONE SEEN [facility] NONE SEEN Normal epithelial cells, urine 0-5 [facility] < OR = 5 RBC urine by microscopy NONE SEEN [facility] < OR = 2 Normal WBC urine on microscopy 0-5 /HPF [facility] < OR = 5 Normal leukocyte esterase, urine, by dipstick 1+ [facility] NEGATIVE Abnormal nitrite, urine, semiquantitative NEGATIVE [facility] NEGATIVE Normal protein, urine, semiquantitative (dipstick) NEGATIVE [facility] NEGATIVE Normal blood in urine (hemoglobin) by dipstick NEGATIVE [facility] NEGATIVE Normal ketones, urine, by test strip TRACE [facility] NEGATIVE Abnormal bilirubin, urine NEGATIVE [facility] NEGATIVE Normal glucose, urine, semiquantitative NEGATIVE [facility] NEGATIVE Normal pH, urine, semiquantitative 5.5 [facility] 5.0-8.0 Normal specific gravity, urine 1.023 [facility] 1.001-1.035 Normal appearance, urine CLEAR [facility] CLEAR Normal urine color YELLOW [facility] YELLOW Normal alanine aminotransferase (SGPT), serum 31 1/L [facility] 6-29 High aspartate aminotransferase (SGOT), serum 27 1/L [facility] 10-35 Normal alkaline phosphatase, serum 54 1/L [facility] 37-153 Normal bilirubin, serum, total 0.4 mg/dL [facility] 0.2-1.2 Normal albumin/globulin ratio, serum 1.3 (calc) [facility] 1.0-2.5 Normal globulins, serum, total 3.2 G/DL (CALC) [facility] 1.9-3.7 Normal albumin, serum 4.0 g/dL [facility] 3.6-5.1 Normal protein, total, serum 7.2 g/dL [facility] 6.1-8.1 Normal calcium, serum 9.2 mg/dL [facility] 8.6-10.4 Normal carbon dioxide, venous blood 28 mmol/L [facility] 20-32 Normal chloride, serum 102 mmol/L [facility] 98-110 Normal potassium, serum 4.1 mmol/L [facility] 3.5-5.3 Normal sodium, serum 141 mmol/L [facility] 135-146 Normal urea nitrogen/creatinine ratio, serum NOT APPLICABLE (calc) [facility] 6- Estimated Glomerular Filtration Rate (calc) 76 mL/min/{1.73 _m2} [facility] > OR = 60 Normal creatinine, serum 0.85 mg/dL [facility] 0.60-0.93 Normal urea nitrogen, blood 14 mg/dL [facility] 7-25 Normal blood glucose, random 180 mg/dL [facility] 65-139 High prothrombin time (patient) 11.3 s LinkLog 9.0-11.5 Normal international normalized ratio (INR) 1.1 [facility] Normal mean platelet volume 8.8 fL [facility] 7.5-12.5 Normal platelet count 271 THOUSAND/UL Link[facility] 140-400 Normal red blood cell distribution width 13.4 % [facility] 11.0-15.0 Normal mean corpuscular hemoglobin concentration, RBC 32.5 G/DL [facility] 32.0-36.0 Normal mean corpuscular hemoglobin, RBC 31.4 pg [facility] 27.0-33.0 Normal mean corpuscular volume, RBC 96.6 fL [facility] 80.0-100.0 Normal hematocrit, blood 34.2 % [facility] 35.0-45.0 Low hemoglobin electrophoresis, blood 11.1 [facility] 11.7-15.5 Low erythrocyte (RBC) count 3.54 MILLION/UL [facility] 3.80-5.10 Low leukocyte (white blood cells) count, blood 7.5 THOUSAND/UL [facility] 3.8-10.8 Normal PTT patient 26 s [facility] 23-32 Normal alanine aminotransferase (SGPT), serum 22 1/L [facility] 6-29 Normal aspartate aminotransferase (SGOT), serum 24 1/L [facility] 10-35 Normal alkaline phosphatase, serum 46 1/L [facility] 37-153 Normal bilirubin, serum, total 0.7 mg/dL [facility] 0.2-1.2 Normal albumin/globulin ratio, serum 1.3 (calc) [facility] 1.0-2.5 Normal globulins, serum, total 3.0 G/DL (CALC) [facility] 1.9-3.7 Normal albumin, serum 4.0 g/dL [facility] 3.6-5.1 Normal protein, total, serum 7.0 g/dL [facility] 6.1-8.1 Normal calcium, serum 9.0 mg/dL [facility] 8.6-10.4 Normal carbon dioxide, venous blood 28 mmol/L [facility] 20-32 Normal chloride, serum 104 mmol/L [facility] 98-110 Normal potassium, serum 3.8 mmol/L [facility] 3.5-5.3 Normal sodium, serum 142 mmol/L [facility] 135-146 Normal urea nitrogen/creatinine ratio, serum NOT APPLICABLE (calc) [facility] 6-22 Estimated Glomerular Filtration Rate (calc) 93 mL/min/{1.73 _m2} [facility] > OR = 60 Normal creatinine, serum 0.72 mg/dL [facility] 0.60-0.93 Normal urea nitrogen, blood 12 mg/dL [facility] 7-25 Normal blood glucose, random 141 mg/dL [facility] 65-99 High magnesium, serum 2.2 mg/dL [facility] 1.5-2.5 Normal thyroid stimulating hormone, serum 3.71 u[IU]/mL [facility] 0.40-4.50 Normal free thyroxine index 2.9 [facility] 1.4-3.8 Normal thyroxine, serum, total 8.4 ug/dL [facility] 5.1-11.9 Normal triiodothyronine resin uptake 34 % [employer] 22-35 Normal HISTORY OF MEDICATION USE Medication Status Instructions Dates Provider Indications Com ments diltiazem HCl 60 mg tablet active TAKE TWO TABLETS BY MOUTH THREE TIMES DAILY Adelaide Masters spironolactone 50 mg tablet active Take 1 tablet by mouth once a day Augusta Osman NP icosapent ethyl 1 gram capsule active TAKE 2 CAPSULES BY MOUTH TWICE A DAY Augusta Osman NP nebivolol 20 mg tablet active Take 1 tablet by mouth once a day Augusta Osman NP primidone 50 mg tablet active 1/2 TABLET DAILY Augusta Osman NP isosorbide mononitrate 30 mg tablet extended release 24 hr completed Take 1 tablet by mouth as directed as needed for pain TAKE 1 TABLET AT ONSET OF CHEST PAIN - Augusta Osman NP nitroglycerin 0.4 mg tablet, sublingual active Place 1 tablet under tongue as directed for pain May repeat every 5 minutes if still having chest pain to max of 3 tablets per episode. Wai Ramon MD rosuvastatin 40 mg tablet active TAKE 1 TABLET BY MOUTH EVERY DAY Augusta Osman NP diltiazem HCl 60 mg tablet completed TAKE 2 TABLETS BY MOUTH THREE TIMES DAILY - Adelaide Masters Lasix 40 mg tablet completed Take 1 tablet by mouth once a day - Augusta Osman NP potassium chloride 20 mEq tablet extended release completed Take 1 tablet by mouth once a day - Augusta Osman NP albuterol sulfate 90 mcg/actuation HFA aerosol inhaler active Inhale 1 puff using inhaler three times a day J Luis Wilde dofetilide 500 mcg capsule active TAKE 1 CAPSULE BY MOUTH TWICE DAILY Adelaide Masters Tikosyn 500 mcg capsule completed Take 1 capsule by mouth twice a day - Adelaide Masters Percocet 5-325 mg tablet completed Take 1 tablet by mouth at bedtime as needed for pain - Wai Ramon MD clindamycin HCl 150 mg capsule completed Take 1 capsule by mouth three times a day for seven days/. - Wai Ramon MD amiodarone 400 mg tablet completed Take 1 tablet by mouth twice a day - Charlie Laguerre RN Cardizem 60 mg tablet completed Take 2 tablet by mouth three times a day - Adelaide Masters ferrous sulfate 325 mg (65 mg iron) tablet active TAKE 1 TABLET BY MOUTH EVERY DAY Augusta Osman NP Vascepa 1 gram capsule completed Take 2 capsule by mouth twice a day - Augusta Osman NP Ocuvite with Lutein 1,000 unit-200 mg-60 unit-2 mg tablet active Take 1 tablet by mouth once a day Augusta Osman NP Vitamin C 1,000 mg tablet active Take 1 tablet by mouth once a day Augusta Osman NP Protonix 20 mg tablet,delayed release (DR/EC) active Take 1 tablet once a day Augusta Osman NP metoprolol tartrate 50 mg tablet completed one tab. twice daily, increase dosage to 50mg one tablet twice a day, Discontinue taking Corgard. - Wai Ramon MD magnesium oxide 400 mg (241.3 mg magnesium) tablet active 1 tablet twice a day Augusta Osman NP A & D [id number] UNIT ORAL CAPSULE completed one tab daily - Mulugeta Rankin cholecalciferol (vitamin D3) 125 mcg (5,000 unit) capsule active 1 tablet by mouth once a day Augusta Osman NP Vitamin B-12 1,000 mcg tablet active 1 tablet once a day Augusta Osman NP aspirin 81 mg tablet,delayed release (DR/EC) completed 1 tablet by mouth once a day - Augusta Osman NP MULTIVITAMINS CAPS active 1 tablet once a day Augusta Osman NP Symbicort 160-4.5 mcg/actuation HFA aerosol inhaler active 1 puff twice a day Augusta Osman NP CORGARD 80 MG ORAL TABLET completed One tab daily - aWi Ramon MD montelukast 10 mg tablet active 1 tablet once a day Augusta Osman NP B-12 COMPLIANCE INJECTION 1000 MCG/ML INJECTION KIT completed Once monthly - Mulugeta Rankin niacin 1,000 mg tablet extended release 24 hr active 1 tablet once a day Augusta Osman NP simvastatin 40 mg tablet completed 1 tablet once a day - Augusta Osman NP Eliquis 5 mg tablet active 1 tablet twice a day Augusta Osman NP DIGOXIN 125 MCG ORAL TABLET completed ONE TAB. DAILY - Dago Minor NP SOCIAL HISTORY Date Observation Value Provider number of years as a smoker 15 a Augusta Osman NP smoking history, tot al pack/year 10 Augusta Osman NP smoking history, tot al pack/day 0.5 Augusta Osman NP cigarette use yes Augusta wheeler NP smoking status Former smoker Augusta thakkar NP Exercise counseling Yes Augusta Osman NP smoking, year quit 50 Wai carreon MD number of years as a smoker 15 a Wai Ramon MD smoking history, tot al pack/year 10 Wai Ramon MD smoking history, tot al pack/day 0.5 Wai Ramon MD cigarette use yes Wai aguilera MD smoking status Former smoker Wia canales MD smoking, year quit 50 Vaishali greynadeen number of years as a smoker 15 a Vaishali Bolanos smoking history, tot al pack/year 10 Vaishali Bolanos smoking history, tot al pack/day 0.5 Vaishali Bolanos cigarette use yes Vaishali Bolanos smoking status Former smoker Vaishali toribio number of years as a smoker 15 a Augusta Osman [employer] PROCESS SERVER DEVELOPER smoking history, tot al pack/year 10 Augusta Tirador [employer] PROC[employer] SERVER DEVELOPER smoking history, tot al pack/day 0.5 Augusta Osman [employer] PROC[employer] SERVER DEVELOPER cigarette use yes Augusta Lu er [employer] PROC[employer] SERVER DEVELOPER smoking status Former smoker Augusta thakkar [employer] PROC[employer] SERVER DEVELOPER Exercise counseling Yes Augusta Osman [employer] PROC[employer] SERVER DEVELOPER smoking status Former smoker Jennifer Hinojosa smoking, year quit 50 Senait Milian number of years as a smoker 15 a Senait Milian smoking history, tot al pack/year 10 Senait Milian smoking history, tot al pack/day 0.5 Senait Milian cigarette use yes Senait Topete nd smoking status Former smoker Senait Bravo clark smoking, year quit 50 Senait Milian number of years as a smoker 15 a Senait Milian smoking history, tot al pack/year 10 Senait Milian smoking history, tot al pack/day 0.5 Senait Milian cigarette use yes Senait Topete nd smoking status Former smoker Senait clark number of years as a smoker 15 a Augusta Osman [employer] PROC[employer] SERVER DEVELOPER smoking history, tot al pack/day 0.5 Augusta Osman [employer] PROC[employer] SERVER DEVELOPER cigarette use yes Augusta Aly wheeler [employer] PROC[employer] SERVER DEVELOPER smoking status Former smoker Augusta Amarilis huynher [employer] PROC[employer] SERVER DEVELOPER social history reviewed E&M revi ewed - no changes required J Luis Wilde social history E&M Quit over 40 years ago. Smoking History: Alta sebastian is a former smoker. Silvino Fuentes social history reviewed E&M revi ewed - no changes required Silvino Fuentes smoking, year quit 50 Adelaide Delgado mckay smoking history, tot al pack/year 10 Adelaideisis Masters smoking history, tot al pack/day 0.5 Adelaide Zoilaer cigarette use yes Adelaide Wheeleraleena chong smoking status Former smoker Adelaide Kimanthony cervanteser social history reviewed E&M revi ewed - no changes required Augusta Osman [employer] PROC[employer] SERVER DEVELOPER smoking, year quit 50 Adelaide Delgado mckay smoking history, tot al pack/year 10 Adelaideisis Cummingser smoking history, tot al pack/day 0.5 Adelaideisis Cummingser cigarette use yes Adelaide Wheelerlucilleanthonydavi chong smoking status Former smoker Adelaide Kimanthony cervanteser social history E&M Quit over 40 years ago. Smoking History: Alta sebastian is a former smoker. Silvino Fuentes social history reviewed E&M revi ewed - no changes required Silvino Fuentes smoking, year quit 50 Adelaide Delgado kimberlyfelder smoking history, tot al pack/year 10 Adelaide Masters smoking history, tot al pack/day 0.5 Adelaide Masters cigarette use yes Adelaide chong smoking status Former smoker Adelaide tomlinsoneldliam smoking, year quit 50 Augusta Osman NP social history reviewed E&M revi ewed - no changes required Augusta Osman NP smoking history, tot al pack/year 10 Adelaide Masters smoking history, tot al pack/day 0.5 Adelaide Masters cigarette use yes Adelaide chong smoking status Former smoker Adelaide tomlinsoneldliam smoking history, tot al pack/year 10 Adelaide Masters smoking history, tot al pack/day 0.5 Adelaide Masters cigarette use yes Adelaide chong smoking status Former smoker Adelaide tomlinsoneldliam smoking history, tot al pack/year 10 Augusta Osman NP smoking history, tot al pack/day 0.5 Augusta Osman NP cigarette use yes Augusta wheeler NP smoking status Former smoker Gali Charlotte social history E&M Quit over 40 years ago. Smoking History: Alta sebastian is a former smoker. Wai Ramon MD social history reviewed E&M revi ewed - no changes required Wai Ramon MD smoking status Former smoker Adelaide tomlinsoneldliam smoking status Former smoker Erin Obi SHIPMAN social history reviewed E&M revi ewed - no changes required Wai Ramon MD smoking status Former smoker Dago Minor NP social history E&M S moking History: Alta sebastian is a former smoker. Q uit over 40 years ago. Wai Ramon MD smoking status Former smoker Wai canales MD social history reviewed E&M i ewed - no changes required Wai Ramon MD number of grandchildren Wai Ramon MD Flori Kristie FUNCTIONAL STATUS Date Observation Value Provider HRA, CV Assess/Plan, Angina (inactive) Management Plan continue current therapy Augusta Osman NP HRA, CV Assess/Plan, Angina (inactive) Management Plan continue current therapy Wai Ramon MD HRA, CV Assess/Plan, Angina (inactive) Management Plan continue current therapy Kelly Cornejo NP HRA, CV Assess/Plan, Angina (inactive) Management Plan continue current therapy Augusta Osman NP HRA, CV Assess/Plan, Angina (inactive) Management Plan continue current therapy Kelly Cornejo NP HRA, CV Assess/Plan, Angina (inactive) Management Plan continue current therapy Kelly Cornejo NP HRA, CV Assess/Plan, Angina (inactive) Management Plan continue current therapy Andrew Lucio MD HRA, CV Assess/Plan, Angina (inactive) Management Plan continue current therapy J Luis Wilde HRA, CV Assess/Plan, Angina (inactive) Management Plan continue current therapy Silvino Fuentes HRA, CV Assess/Plan, Angina (inactive) Management Plan continue current therapy Augusta Osman NP HRA, CV Assess/Plan, Angina (inactive) Management Plan continue current therapy Silvino Robertsont HRA, CV Assess/Plan, Angina (inactive) Management Plan continue current therapy Augusta Osman NP HRA, CV Assess/Plan, Angina (inactive) Management Plan continue current therapy Augusta Osman NP HRA, CV Assess/Plan, Angina (inactive) Management Plan continue current therapy Wai Ramon MD HRA, CV Assess/Plan, Angina (inactive) Management Plan continue current therapy Erin Crocker WE[employer] PROC[employer] SERVER DEVELOPER HRA, CV Assess/Plan, Angina (inactive) Management Plan continue current therapy Dago Minor WE[employer] PROCESS SERVER DEVELOPER HRA, CV Assess/Plan, Angina (inactive) Management Plan continue current therapy Wai Ramon MD FAMILY HISTORY Family Member Condition Father Family History of Co ngestive Heart Failure: Mother Family History of Co ngestive Heart Failure: INSURANCE PROVIDERS Payer name Policy type / Coverage type [place] red democrat ID [employer] MEDICARE GUR[employer]INDER PPO Medicare [id number] ADVANCE DIRECTIVES Name Date POWER OF SUBSTATION OPERATOR APPRENTICE LIVING WILL ON FILE TREATMENT PLAN Date Name Performer [id number],C,s he is s/p left GSV venaseal 05/2023 p ost doppler shows occluded left GSV, and no DVT s till having swelling and pain and redness to the LLE w ears her compression stockings. She does have left SSV that is also large w ill repeat her doppler today n ow with phlebolymphedema P atient presents with BLE lymphedema-tarda (Q82.0). The patient has tried to manage swelling through exercise, elevation, and compression of at least 20 - 30 mmHg for 4+ weeks but still remains with significant symptoms of hyperpigmentation and swelling from toes to groin. Despite the patient?s best efforts, the symptoms persist. They need the compression pump from [facility] to manage the lymphedema at home. a fter repeating the doppler if there are no other veins to treat will need the pumps. Andrew Lucio MD [id number],C, s /p left GSV venaseal 05/2023 p ost doppler shows occluded left GSV, and no DVT s till having swelling and pain and redness to the Kelly Emily Cornejo WEB[employer] PROCESS SERVER DEVELOPER [id number],C, she is s/p left GSV venaseal 05/2023 p ost doppler shows occluded left GSV, and no DVT s till having swelling and pain and redness to the LLE w ears her compression stockings. She does have left SSV that is also large w ill repeat her doppler today n ow with phlebolymphedema P jaz presents with BLE lymphedema-tarda (Q82.0). The patient has tried to manage swelling through exercise, elevation, and compression of at least 20 - 30 mmHg for 4+ weeks but still remains with significant symptoms of hyperpigmentation and swelling from toes to groin. Despite the patient?s best efforts, the symptoms persist. They need the compression pump from [facility] to manage the lymphedema at home. a fter repeating the doppler if there are no other veins to treat will need the pumps. Kelly Cornejo NP [id number],C, p jaz continues to have bilateral edema H er venous doppler shows right gsv and left ssv cvi and no dvt. H er venogram did not show iliac stenosis s he does have bilateral GSV, SSV reflux o ptions for conservative rx vs venous ablaiton d/w pt and she is having life style limiting sx and has opted for venous ablaiton r isks, options and co,[plication d/w pt and she wishes to proce will plan for venaseal to the left GSV to start. Andrew Lucio MD [id number],C, her venous doppler again today shows large GSV, and SSV reflux w ill plan for venaseal Kelly Cornejo NP [id number],C, p jaz continues to have bilateral edema H er venous doppler shows right gsv and left ssv cvi and no dvt. H er venogram did not show iliac stenosis s he does have bilateral GSV, SSV reflux will plan for venaseal to the left GSV to start. Kelly Cornejo NP [id number],C, H er updated medication list for this problem includes: Diltiazem Hcl 60 Mg Tablet (Diltiazem hcl) ..... Take 2 tablets by mouth three times daily Lasix 40 Mg Tablet (Furosemide) ..... Take 1 tablet by mouth once a day BP today: 141/78 P rior BP: 146/96 (02/20/2023) Labs Reviewed: C reat: 0.87 (08/02/2021) C hol: 164 (02/23/2022) Andrew Lucio MD [id number],C,no angina Jackelyn Lucio MD [id number],C,P jessica comes inf or initial evaluation for edeema in both legs, worse LLE going on for > 1 year. Patient denies leg ulcers, Has red discoloration, pain and edema. Edema located in lower leg. Gets worse as the day goes by. More pain with standing or walking and eases up if she lies down. She taked lasix fo it. Has tried elastic stockings for last few months and do not help. Has no visible varicosities. No hx of dvt. H er venous doppler shows right gsv and left ssv cvi and no dvt. Her LLe s more sy,mptomatic and her doppler shjows that his is the less involved extremity. I suspect may thurner syndrome and will plan evaluation. Andrew Lucio MD [id number],C,P jessica comes inf or initial evaluation for edeema in both legs, worse LLE going on for > 1 year. Patient denies leg ulcers, Has red discoloration, pain and edema. Edema located in lower leg. Gets worse as the day goes by. More pain with standing or walking and eases up if she lies down. She taked lasix fo it. Has tried elastic stockings for last few months and do not help. Has no visible varicosities. No hx of dvt. H er venous doppler shows right gsv and left ssv cvi and no dvt. Her LLe s more sy,mptomatic and her doppler shjows that his is the less involved extremity. I suspect may thurner syndrome and will plan evaluation. Andrew Lucio MD [id number],S, T he following medications were removed from the medication list: Aspirin 81 Mg Tablet,delayed Release (dr/ec) (Aspirin) ..... 1 tablet by mouth once a day Her updated medication list for this problem includes: Diltiazem Hcl 60 Mg Tablet (Diltiazem hcl) ..... Take 2 tablets by mouth three times daily Wai Ramon MD [id number],C,7 % on last remote check T he following medications were removed from the medication list: Aspirin 81 Mg Tablet,delayed Release (/ec) (Aspirin) ..... 1 tablet by mouth once a day Her updated medication list for this problem includes: Diltiazem Hcl 60 Mg Tablet (Diltiazem hcl) ..... Take 2 tablets by mouth three times daily Dofetilide 500 Mcg Capsule (Dofetilide) ..... Take 1 capsule by mouth twice daily eliquis 5mg BID. Augusta Osman NP [id number],C,c arotids: 1.Mild plaque with less than 50% stenosis of the internal carotid arteries bilaterally. 2. Vertebral flow is antegrade bilaterally. Augusta Osman NP [id number],W,see above Blanca Osman NP [id number],W, venous doppler: negative for DVT. significant venous insufficiency of R GSV, and significant venous insufficiency of L Small saphenous vein. scheduled to see Dr. Lucio next week re: significant venous insufficiency Augusta Osman NP [id number],C,P FT today showed: C onclusions: The reduced lung volumes, increased FEV1/FVC ratio, diffusion defect and maldistribution are consistent with an interstitial p rocess such as interstitial inflammation or fibrosis. Severe airway obstruction is present. A clinical trial of bronchodilators may be b eneficial in view of the airway obstruction. P ulmonary Function Diagnosis: S evere Obstructive Airways Disease M oderately severe Restriction -Interstitial S evere Diffusion Defect S ignificant decrease in FEV1 and DLCO when compared to previous study. Will START her on albuterol and check a chest x-ray today. J Luis Wilde [id number],S, B P today: 142/80 P rior BP: 159/86 (06/20/2022) Labs Reviewed: C reat: 0.87 (08/02/2021) C hol: 164 (02/23/2022) Her updated medication list for this problem includes: Cardizem 60 Mg Tablet (Diltiazem hcl) ..... Take 2 tablet by mouth three times a day Aspirin 81 Mg Tablet,delayed Release (dr/ec) (Aspirin) ..... 1 tablet by mouth once a day J Luis Wilde [id number],S,H er venous US from 07/2022 showed: 1. No evidence of a deep vein thrombosis of the lower extremities bilaterally. 2. Significant venous insufficiency of the right femoral vein. She has used compression stockings for three months and is concerned that both her legs are causing her problems. Will check a standing venous doppler to check for reflux. If we give her a diuretic, it cannot by a thiazide because she is on tikosyn. Will start her on Lasix 40mg once daily J Luis Wilde [id number],S, H er updated medication list for this problem includes: Cardizem 60 Mg Tablet (Diltiazem hcl) ..... Take 2 tablet by mouth three times a day Aspirin 81 Mg Tablet,delayed Release (dr/ec) (Aspirin) ..... 1 tablet by mouth once a day J Luis Wilde [id number],C, Wai canales MD [id number],C, H er updated medication list for this problem includes: Cardizem 60 Mg Tablet (Diltiazem hcl) ..... Take 2 tablet by mouth three times a day Aspirin 81 Mg Tablet,delayed Release (dr/ec) (Aspirin) ..... 1 tablet by mouth once a day Wai Ramon MD [id number],C, Wai canales MD [id number],W, B LE edema l ikely venous insufficiency. will check venous doppler BLE r ecommend treatment with compression socks for 6 months. Wai Ramon MD [id number],W, O K to start propanalol Silvino Fuentes [id number],S, H er updated medication list for this problem includes: Cardizem 60 Mg Tablet (Diltiazem hcl) ..... Take 2 tablet by mouth three times a day Dofetilide 500 Mcg Capsule (Dofetilide) ..... Take 1 capsule by mouth twice daily Aspirin 81 Mg Tablet,delayed Release (dr/ec) (Aspirin) ..... 1 tablet by mouth once a day Silvino Fuentes [id number],S, H er updated medication list for this problem includes: Cardizem 60 Mg Tablet (Diltiazem hcl) ..... Take 2 tablet by mouth three times a day Aspirin 81 Mg Tablet,delayed Release (dr/ec) (Aspirin) ..... 1 tablet by mouth once a day Silvino Fuentes [id number],S, B P today: 159/86 P rior BP: 161/70 (02/23/2022) Her updated medication list for this problem includes: Cardizem 60 Mg Tablet (Diltiazem hcl) ..... Take 2 tablet by mouth three times a day Aspirin 81 Mg Tablet,delayed Release (dr/ec) (Aspirin) ..... 1 tablet by mouth once a day Silvino Fuentes [id number],CWai MD [id number],C, H er updated medication list for this problem includes: Niacin 1,000 Mg Tablet Extended Release 24 Hr (Niacin) ..... 1 tablet once a day Vascepa 1 Gram Capsule (Icosapent ethyl) ..... Take 2 capsule by mouth twice a day Simvastatin 40 Mg Tablet (Simvastatin) ..... 1 tablet once a day Orders: 9 9215 HIGH 40-54min (CPT-45094) C arotid Duplex Bilateral (CPT-37778) C ardioIQ Advanced Lipid Panel with Inflammation ([facility]) (21590) Wai Ramon MD [id number],C, H er updated medication list for this problem includes: Cardizem 60 Mg Tablet (Diltiazem hcl) ..... Take 1 1/2 tablet by mouth three times a day Aspirin 81 Mg Tablet,delayed Release (dr/ec) (Aspirin) ..... 1 tablet by mouth once a day Orders: P ALETA, N TERMINAL (80405) A nick Duplex Ultrasound (CPT-93892) Wai Ramon MD [id number],C, O rders: 9 9215 HIGH 40-54min (CPT-18471) Wai Ramon MD [id number],C, Wai canales MD [id number],S, H er updated medication list for this problem includes: Cardizem 60 Mg Tablet (Diltiazem hcl) ..... Take 1 1/2 tablet by mouth three times a day Aspirin 81 Mg Tablet,delayed Release (dr/ec) (Aspirin) ..... 1 tablet by mouth once a day Wai Ramon MD [id number],C, H er updated medication list for this problem includes: Cardizem 60 Mg Tablet (Diltiazem hcl) ..... Take 1 1/2 tablet by mouth three times a day Tikosyn 500 Mcg Capsule (Dofetilide) ..... Take 1 capsule by mouth twice a day Aspirin 81 Mg Tablet,delayed Release (dr/ec) (Aspirin) ..... 1 tablet by mouth once a day Orders: E KG (CPT-22874) 9 9215 HIGH 40-54min (CPT-93576) S chedule Followup (*) C OMPREHENSIVE METABOLIC PANEL, W/EGFR (47497) T SH, free T4, total T3 (7444) M AGNESIUM (622) P ROBNP, N TERMINAL (05795) C omplete Echo (CPT-80751) Wai Ramon MD [id number],C, H er updated medication list for this problem includes: Cardizem 60 Mg Tablet (Diltiazem hcl) ..... Take 1 1/2 tablet by mouth three times a day Tikosyn 500 Mcg Capsule (Dofetilide) ..... Take 1 capsule by mouth twice a day Aspirin 81 Mg Tablet,delayed Release (dr/ec) (Aspirin) ..... 1 tablet by mouth once a day Orders: E KG (CPT-29537) 9 9215 HIGH 40-54min (CPT-79003) S chedule Followup (*) Wai Ramon MD [id number],B, Wai canales MD [id number],C, s table. ECHO: 05/17/21 EF 50%, mild-mod MR, mild TR Wai Ramon MD [id number],W,e levated today. 160/90. will increase cardizem to 90mg TID. will arrange for RPM. Discussion of benefits for remote patient monitoring took place. Patient gives consent for remote monitoring of physiologic parameters including, but not limited to, weight, blood pressure, pulse oximetry, respiratory flow rate. Augusta Osman NP [id number],C, s table. ECHO: 05/17/21 EF 50%, mild-mod MR, mild TR Augusta Osman NP [id number],C,m ild. last ECHO 05/2021 EF 50%. will recheck ECHO in May Augusta Osman NP [id number],C,E KG today SR Her updated medication list for this problem includes: Cardizem 60 Mg Tablet (Diltiazem hcl) ..... Take 1 1/2 tablet by mouth three times a day Tikosyn 500 Mcg Capsule (Dofetilide) ..... Take 1 capsule by mouth twice a day Aspirin 81 Mg Tablet,delayed Release (dr/ec) (Aspirin) ..... 1 tablet by mouth once a day Eliquis 5mg BID Augusta Osman NP [id number],W, 1 00% AF burden on device interrogation today. Continues on eliquis. Plan on NICOLA/cardioversion in 3 weeks. w ill start her on tikosyn Her updated medication list for this problem includes: Tikosyn 500 Mcg Capsule (Dofetilide) ..... Take 1 capsule by mouth twice a day Cardizem 60 Mg Tablet (Diltiazem hcl) ..... Take 1 tablet by mouth three times a day Aspirin 81 Mg Tablet,delayed Release (dr/ec) (Aspirin) ..... 1 tablet by mouth once a day Silvino Fuentes [id number],C,p t statest that she did not decrease amio to daily as per last office note 05/31. she states that she stopped amio 'after 21 days' which was last week. she continues on cadizem 60mg TID. she turned in tele monitor last week. will review results with Dr. Sandy. EKG today AFIB 110. amio and diliazem for afib failed. she is a poor candidate for ablation. discussed options of pacemaker. recommendation for ppm for sick sinus rhythm, richard/tachy with possiblility of synchronized cardioversion 4-5 weeks. explained in detail with pt. 05/31/21 Cardioverted 05/18/2021 but back to A. fib W e will decrease amiodarone from 400 mg PO bid to once daily. Augusta Osman NP [id number],C, o n statin, vascepa, niacin Augusta Osman NP [id number],C,B P today 112/70 Her updated medication list for this problem includes: Cardizem 60 Mg Tablet (Diltiazem hcl) ..... Take 1 tablet by mouth three times a day Aspirin 81 Mg Tablet,delayed Release (dr/ec) (Aspirin) ..... 1 tablet by mouth once a day Augusta Osman NP [id number],C,s table. ECHO: 05/17/21 EF 50%, mild-mod MR, mild TR Augusta Osman NP [id number],CWai MD [id number],C, H er updated medication list for this problem includes: Cardizem 60 Mg Tablet (Diltiazem hcl) ..... Take 1 tablet by mouth three times a day Aspirin 81 Mg Tablet,delayed Release (dr/ec) (Aspirin) ..... 1 tablet by mouth once a day Wai Ramon MD [id number],W,C ardioverted 05/18/2021 but back to A. fib W e will decrease amiodarone from 400 mg PO bid to once daily Her updated medication list for this problem includes: Amiodarone 400 Mg Tablet (Amiodarone) ..... Take 1 tablet by mouth twice a day Cardizem 60 Mg Tablet (Diltiazem hcl) ..... Take 1 tablet by mouth three times a day Aspirin 81 Mg Tablet,delayed Release (dr/ec) (Aspirin) ..... 1 tablet by mouth once a day Orders: E KG (CPT-81175) 9 14 MOD 30-39min (CPT-87300) M onitor - Telemetry (Mobile Cardiac) (CPT-62512) Wai Ramon MD [id number],C, H er updated medication list for this problem includes: Cardizem 60 Mg Tablet (Diltiazem hcl) ..... Take 1 tablet by mouth three times a day Aspirin 81 Mg Tablet,delayed Release (dr/ec) (Aspirin) ..... 1 tablet by mouth once a day Orders: 9213 MOD 30-39min (CPT-75893) Wai Ramon MD [id number],C,on statin and vascepa Augusta Osman NP [id number],C,e levated today 135/90, in AFIB RVR 130's c ontinue metoprolol 50mg BID a dding joe Osman NP [id number],C,E KG today AFIB RVR 130's. reports SOB, GAMBLE, fatigue, but no complaints of heart palpiations or fluttering. c urrently on metoprolol and eliquis. 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 will arrange for CV on . will check ECHO tomorrow. check labs today Augusta Osman RAMONITA [id number],C,s tress test 2017 normal, EF 56% E CHO 2016 EF 60%, impaired LV relaxation, Augusta Olmosbijan SHIPMAN Electrophysiology:2023 stress test that normal with no evidence of ischemia, and ECHO that showed normal EF 65%, mild Mr, mod TR. Augusta Tiradocatarino SHIPMAN Electrophysiology:CH OL: 181 (03/09/2023) LDL: * mg/dL (calc) (03/09/2023) HDL: 58 (03/09/2023) T (03/09/2023) The following medications were removed from the medication list: Vascepa 1 Gram Capsule (Icosapent ethyl) ..... Take 2 capsule by mouth twice a day Her updated medication list for this problem includes: Icosapent Ethyl 1 Gram Capsule (Icosapent ethyl) ..... Take 2 capsules by mouth twice a day Rosuvastatin 40 Mg Tablet (Rosuvastatin) ..... Take 1 tablet by mouth every day Niacin 1,000 Mg Tablet Extended Release 24 Hr (Niacin) ..... 1 tablet once a day Augusta Tiradocatarino SHIPMAN Electrophysiology: B P today: 126/70 P rior BP: 142/90 (02/05/2024) Labs Reviewed: C reat: 0.77 (03/09/2023) C hol: 181 (03/09/2023) HDL: 58 (03/09/2023) LDL: * mg/dL (calc) (03/09/2023) T (03/09/2023) Her updated medication list for this problem includes: Spironolactone 50 Mg Tablet (Spironolactone) ..... Take 1 tablet by mouth once a day Nebivolol 20 Mg Tablet (Nebivolol) ..... Take 1 tablet by mouth once a day Diltiazem Hcl 60 Mg Tablet (Diltiazem hcl) ..... Take 2 tablets by mouth three times daily Augusta Jacqui SHIPMAN Electrophysiology:la st remote check: 0% AT/AF. RA 94%, RV 28%, NO NEW EVENTS Augusta Jacqui SHIPMAN Electrophysiology: s he continue to have intermittent L sided CP, described as a 'twitch' at PPM site. it is not associated with any specific activity, does not increase with exertion, and she states that her SOB/GAMBLE is improved. 03/2024 s tress test that normal with no evidence of ischemia, and ECHO that showed normal EF 65%, mild Mr, mod TR. Augusta Osman NP Electrophysiology:carotids 08/21 23 , 50% bilaterally Augusta Osman NP Electrophysiology:improved. on a ldcatone Augusta Osman NP Electrophysiology:re solved Augusta Osman NP Electrophysiology: H er updated medication list for this problem includes: Isosorbide Mononitrate 30 Mg Tablet Extended Release 24 Hr (Isosorbide mononitrate) ..... Take 1 tablet by mouth as directed as needed for pain take 1 tablet at onset of chest pain Nitroglycerin 0.4 Mg Tablet, Sublingual (Nitroglycerin) ..... Place 1 tablet under tongue as directed for pain may repeat every 5 minutes if still having chest pain to max of 3 tablets per episode. Diltiazem Hcl 60 Mg Tablet (Diltiazem hcl) ..... Take 2 tablets by mouth three times daily Orders: 9 9215 HIGH 40-54min (CPT-70831) S tress Regadenoson (CPT-88589) C omplete Echo (26661) Wai Ramon MD Electrophysiology: H er updated medication list for this problem includes: Isosorbide Mononitrate 30 Mg Tablet Extended Release 24 Hr (Isosorbide mononitrate) ..... Take 1 tablet by mouth as directed as needed for pain take 1 tablet at onset of chest pain Nitroglycerin 0.4 Mg Tablet, Sublingual (Nitroglycerin) ..... Place 1 tablet under tongue as directed for pain may repeat every 5 minutes if still having chest pain to max of 3 tablets per episode. Diltiazem Hcl 60 Mg Tablet (Diltiazem hcl) ..... Take 2 tablets by mouth three times daily Orders: E KG (CPT-03517) 38070 HIGH 40-54min (CPT-37180) S tress Regadenoson (CPT-47948) C omplete Echo (29934) Wai Ramon MD Electrophysiology Wai aguilera MD Electrophysiology: H er updated medication list for this problem includes: Isosorbide Mononitrate 30 Mg Tablet Extended Release 24 Hr (Isosorbide mononitrate) ..... Take 1 tablet by mouth as directed as needed for pain take 1 tablet at onset of chest pain Nitroglycerin 0.4 Mg Tablet, Sublingual (Nitroglycerin) ..... Place 1 tablet under tongue as directed for pain may repeat every 5 minutes if still having chest pain to max of 3 tablets per episode. Diltiazem Hcl 60 Mg Tablet (Diltiazem hcl) ..... Take 2 tablets by mouth three times daily Dofetilide 500 Mcg Capsule (Dofetilide) ..... Take 1 capsule by mouth twice daily Wai Ramon MD Cardiology: 0 % AT/AF on device check today Her updated medication list for this problem includes: Dofetilide 500 Mcg Capsule (Dofetilide) ..... Take 1 capsule by mouth twice daily Diltiazem Hcl 60 Mg Tablet (Diltiazem hcl) ..... Take 2 tablets by mouth three times daily eliquis 5mg BID Kelly Cornejo NP Cardiology: P FT today showed: C onclusions: The reduced lung volumes, increased FEV1/FVC ratio, diffusion defect and maldistribution are consistent with an interstitial p rocess such as interstitial inflammation or fibrosis. Severe airway obstruction is present. A clinical trial of bronchodilators may be b eneficial in view of the airway obstruction. P ulmonary Function Diagnosis: Severe Obstructive Airways Disease M oderately severe Restriction -Interstitial S evere Diffusion Defect S ignificant decrease in FEV1 and DLCO when compared to previous study. Will START her on albuterol and check a chest x-ray today. Kelly Cornejo [employer]ELOPER Cardiology:CHOL: 181 (03/09/2023) LDL: * mg/dL (calc) (03/09/2023) HDL: 58 (03/09/2023) T (03/09/2023) H CT: 39.4 (03/09/2023) Platelets: 206 THOUSAND/UL (03/09/2023) R BC: 3.75 MILLION/UL (03/09/2023) BUN: 17 (03/09/2023) Creat: 0.77 (03/09/2023) Glucose: 110 (03/09/2023) N a+: 141 (03/09/2023) K+: 4.0 (03/09/2023) Cl: 103 (03/09/2023) PT: 11.4 (03/09/2023) INR: 1.1 (03/09/2023) PTT: 25 (06/27/2021) T SH: 2.13 MCIUNIT/ML (02/23/2022) T4 (total): 8.4 (05/18/2021) Kelly Cornejo [employer] DEVELOPER Cardiology: s /p left GSV venaseal 05/2023 p ost doppler shows occluded left GSV, and no DVT h er swelling has improved with the lymphopumps which she uses every day. Kelly Cornejo [employer] DEVELOPER Cardiology: s he is s/p left GSV venaseal 05/2023 p ost doppler shows occluded left GSV, and no DVT s till having swelling and pain and redness to the LLE w ears her compression stockings. She does have left SSV that is also large w ill repeat her doppler today n ow with phlebolymphedema P atient presents with BLE lymphedema-tarda (Q82.0). The patient has tried to manage swelling through exercise, elevation, and compression of at least 20 - 30 mmHg for 4+ weeks but still remains with significant symptoms of hyperpigmentation and swelling from toes to groin. Despite the patient?s best efforts, the symptoms persist. They need the compression pump from [employer] to manage the lymphedema at home. a fter repeating the doppler, 06/2023 negative for DVT, compression therapy is being arranged. She has been religiously using the lympho pumps and gettinglymph massage which has helped tremendously Kelly Cornejo RAMONITA Electrophysiology:0% AT/AF on device check today Her updated medication list for this problem includes: Dofetilide 500 Mcg Capsule (Dofetilide) ..... Take 1 capsule by mouth twice daily Diltiazem Hcl 60 Mg Tablet (Diltiazem hcl) ..... Take 2 tablets by mouth three times daily eliquis 5mg BID Augusta Osman NP Electrophysiology:s/ p ppm Her updated medication list for this problem includes: Dofetilide 500 Mcg Capsule (Dofetilide) ..... Take 1 capsule by mouth twice daily Diltiazem Hcl 60 Mg Tablet (Diltiazem hcl) ..... Take 2 tablets by mouth three times daily Augusta Osman NP Electrophysiology:se e #1. checking carotids and CT head without contrast Augusta Osman NP Electrophysiology: s he is s/p left GSV venaseal 05/2023 p ost doppler shows occluded left GSV, and no DVT s till having swelling and pain and redness to the LLE w ears her compression stockings. She does have left SSV that is also large w ill repeat her doppler today n ow with phlebolymphedema P atient presents with BLE lymphedema-tarda (Q82.0). The patient has tried to manage swelling through exercise, elevation, and compression of at least 20 - 30 mmHg for 4+ weeks but still remains with significant symptoms of hyperpigmentation and swelling from toes to groin. Despite the patient?s best efforts, the symptoms persist. They need the compression pump from [employer] to manage the lymphedema at home. a fter repeating the doppler, 06/2023 negative for DVT, compression therapy is being arranged. Augusta Osman NP Electrophysiology:courtney s followed with Dr. Lucio. venaseal was done that was unsuccessful, felt that swelling is do to lymphedema. last echo EF 65%. pt is being arranged for compression therapy. lasix and kcl stopped. Augusta Osman [employer] DEVELOPER Electrophysiology: p t states that she will occasionally experience episodes where she will feel dizzy and 'disconnected for a few seconds'. she says this usually occurs while at the store, but states that she occasionally will have dizzy spells, while not at a store. will check CT HEAD without contrast and carotids Augusta Osman [employer] DEVELOPER Cardiology:she is s/ p left GSV venaseal 05/2023 p ost doppler shows occluded left GSV, and no DVT s till having swelling and pain and redness to the LLE w ears her compression stockings. She does have left SSV that is also large w ill repeat her doppler today n ow with phlebolymphedema P jaz presents with BLE lymphedema-tarda (Q82.0). The patient has tried to manage swelling through exercise, elevation, and compression of at least 20 - 30 mmHg for 4+ weeks but still remains with significant symptoms of hyperpigmentation and swelling from toes to groin. Despite the patient?s best efforts, the symptoms persist. They need the compression pump from [employer] to manage the lymphedema at home. a fter repeating the doppler if there are no other veins to treat will need the pumps. Andrew Lucio MD Cardiology: s /p left GSV venaseal 05/2023 p ost doppler shows occluded left GSV, and no DVT s till having swelling and pain and redness to the Kelly Emily Cornejo NP Cardiology: she is s/p left GSV venaseal 05/2023 p ost doppler shows occluded left GSV, and no DVT s till having swelling and pain and redness to the LLE w ears her compression stockings. She does have left SSV that is also large w ill repeat her doppler today n ow with phlebolymphedema P jaz presents with BLE lymphedema-tarda (Q82.0). The patient has tried to manage swelling through exercise, elevation, and compression of at least 20 - 30 mmHg for 4+ weeks but still remains with significant symptoms of hyperpigmentation and swelling from toes to groin. Despite the patient?s best efforts, the symptoms persist. They need the compression pump from [employer] to manage the lymphedema at home. a fter repeating the doppler if there are no other veins to treat will need the pumps. Kelly Cornejo NP Cardiology: alta sebastian continues to have bilateral edema H er venous doppler shows right gsv and left ssv cvi and no dvt. H er venogram did not show iliac stenosis s he does have bilateral GSV, SSV reflux o ptions for conservative rx vs venous ablaiton d/w pt and she is having life style limiting sx and has opted for venous ablaiton r isks, options and co,[plication d/w pt and she wishes to proce will plan for venaseal to the left GSV to start. Andrew Lucio MD Cardiology: her venous doppler again today shows large GSV, and SSV reflux w ill plan for venaseal Kelly Cornejo NP Cardiology: alta sebastian continues to have bilateral edema H er venous doppler shows right gsv and left ssv cvi and no dvt. H er venogram did not show iliac stenosis s he does have bilateral GSV, SSV reflux will plan for venaseal to the left GSV to start. Kelly Cornejo NP Cardiology: H er updated medication list for this problem includes: Diltiazem Hcl 60 Mg Tablet (Diltiazem hcl) ..... Take 2 tablets by mouth three times daily Lasix 40 Mg Tablet (Furosemide) ..... Take 1 tablet by mouth once a day BP today: 141/78 P rior BP: 146/96 (02/20/2023) Labs Reviewed: C reat: 0.87 (08/02/2021) C hol: 164 (02/23/2022) Andrew Lucio MD Cardiology:no angina Andrew Lucio MD Cardiology:Patietn ann omes inf or initial evaluation for edeema in both legs, worse LLE going on for > 1 year. Patient denies leg ulcers, Has red discoloration, pain and edema. Edema located in lower leg. Gets worse as the day goes by. More pain with standing or walking and eases up if she lies down. She taked lasix fo it. Has tried elastic stockings for last few months and do not help. Has no visible varicosities. No hx of dvt. H er venous doppler shows right gsv and left ssv cvi and no dvt. Her LLe s more sy,mptomatic and her doppler shjows that his is the less involved extremity. I suspect may thurner syndrome and will plan evaluation. Andrew Lucio MD Cardiology:Patietn c omes inf or initial evaluation for edeema in both legs, worse LLE going on for > 1 year. Patient denies leg ulcers, Has red discoloration, pain and edema. Edema located in lower leg. Gets worse as the day goes by. More pain with standing or walking and eases up if she lies down. She taked lasix fo it. Has tried elastic stockings for last few months and do not help. Has no visible varicosities. No hx of dvt. H er venous doppler shows right gsv and left ssv cvi and no dvt. Her LLe s more sy,mptomatic and her doppler shjows that his is the less involved extremity. I suspect may thurner syndrome and will plan evaluation. Andrew Lucio MD Electrophysiology: T he following medications were removed from the medication list: Aspirin 81 Mg Tablet,delayed Release (dr/ec) (Aspirin) ..... 1 tablet by mouth once a day Her updated medication list for this problem includes: Diltiazem Hcl 60 Mg Tablet (Diltiazem hcl) ..... Take 2 tablets by mouth three times daily Wai Ramon MD Electrophysiology:7% on last remote check T he following medications were removed from the medication list: Aspirin 81 Mg Tablet,delayed Release (dr/ec) (Aspirin) ..... 1 tablet by mouth once a day Her updated medication list for this problem includes: Diltiazem Hcl 60 Mg Tablet (Diltiazem hcl) ..... Take 2 tablets by mouth three times daily Dofetilide 500 Mcg Capsule (Dofetilide) ..... Take 1 capsule by mouth twice daily eliquis 5mg BID. Wai Ramon MD Electrophysiology:ca rotids: 1.Mild plaque with less than 50% stenosis of the internal carotid arteries bilaterally. 2. Vertebral flow is antegrade bilaterally. Wai Ramon MD Electrophysiology:see above Kory Ramon MD Electrophysiology:2022 venous doppler: negative for DVT. significant venous insufficiency of R GSV, and significant venous insufficiency of L Small saphenous vein. scheduled to see Dr. Lucio next week re: significant venous insufficiency Wai Ramon MD Electrophysiology:PF T today showed: C onclusions: The reduced lung volumes, increased FEV1/FVC ratio, diffusion defect and maldistribution are consistent with an interstitial p rocess such as interstitial inflammation or fibrosis. Severe airway obstruction is present. A clinical trial of bronchodilators may be b eneficial in view of the airway obstruction. P ulmonary Function Diagnosis: S evere Obstructive Airways Disease M oderately severe Restriction -Interstitial S evere Diffusion Defect S ignificant decrease in FEV1 and DLCO when compared to previous study. Will START her on albuterol and check a chest x-ray today. J Luis Wilde Electrophysiology: B P today: 142/80 P rior BP: 159/86 (06/20/2022) Labs Reviewed: C reat: 0.87 (08/02/2021) C hol: 164 (02/23/2022) Her updated medication list for this problem includes: Cardizem 60 Mg Tablet (Diltiazem hcl) ..... Take 2 tablet by mouth three times a day Aspirin 81 Mg Tablet,delayed Release (dr/ec) (Aspirin) ..... 1 tablet by mouth once a day J Luis Wilde Electrophysiology:He r venous US from 07/2022 showed: 1. No evidence of a deep vein thrombosis of the lower extremities bilaterally. 2. Significant venous insufficiency of the right femoral vein. She has used compression stockings for three months and is concerned that both her legs are causing her problems. Will check a standing venous doppler to check for reflux. If we give her a diuretic, it cannot by a thiazide because she is on tikosyn. Will start her on Lasix 40mg once daily J Luis Wilde Electrophysiology: H er updated medication list for this problem includes: Cardizem 60 Mg Tablet (Diltiazem hcl) ..... Take 2 tablet by mouth three times a day Aspirin 81 Mg Tablet,delayed Release (dr/ec) (Aspirin) ..... 1 tablet by mouth once a day J Luis Wilde Electrophysiology Wai aguilera MD Electrophysiology: H er updated medication list for this problem includes: Cardizem 60 Mg Tablet (Diltiazem hcl) ..... Take 2 tablet by mouth three times a day Aspirin 81 Mg Tablet,delayed Release (dr/ec) (Aspirin) ..... 1 tablet by mouth once a day Wai Ramon MD Electrophysiology Wai aguilera MD Electrophysiology: B LE edema l ikely venous insufficiency. will check venous doppler BLE r ecommend treatment with compression socks for 6 months. Wai Ramon MD Electrophysiology: O K to start propanalol Silvino Fuentes Electrophysiology: H er updated medication list for this problem includes: Cardizem 60 Mg Tablet (Diltiazem hcl) ..... Take 2 tablet by mouth three times a day Dofetilide 500 Mcg Capsule (Dofetilide) ..... Take 1 capsule by mouth twice daily Aspirin 81 Mg Tablet,delayed Release (dr/ec) (Aspirin) ..... 1 tablet by mouth once a day Silvino Fuentes Electrophysiology: H er updated medication list for this problem includes: Cardizem 60 Mg Tablet (Diltiazem hcl) ..... Take 2 tablet by mouth three times a day Aspirin 81 Mg Tablet,delayed Release (dr/ec) (Aspirin) ..... 1 tablet by mouth once a day Silvino Fuentes Electrophysiology: B P today: 159/86 P rior BP: 161/70 (02/23/2022) Her updated medication list for this problem includes: Cardizem 60 Mg Tablet (Diltiazem hcl) ..... Take 2 tablet by mouth three times a day Aspirin 81 Mg Tablet,delayed Release (dr/ec) (Aspirin) ..... 1 tablet by mouth once a day Silvino Fuentes Electrophysiology Wai aguilera MD Electrophysiology: H er updated medication list for this problem includes: Niacin 1,000 Mg Tablet Extended Release 24 Hr (Niacin) ..... 1 tablet once a day Vascepa 1 Gram Capsule (Icosapent ethyl) ..... Take 2 capsule by mouth twice a day Simvastatin 40 Mg Tablet (Simvastatin) ..... 1 tablet once a day Orders: 9 9215 HIGH 40-54min (CPT-81066) C arotid Duplex Bilateral (CPT-71765) C ardioIQ Advanced Lipid Panel with Inflammation ([facility]) (63097) Wai Ramon MD Electrophysiology: H er updated medication list for this problem includes: Cardizem 60 Mg Tablet (Diltiazem hcl) ..... Take 1 1/2 tablet by mouth three times a day Aspirin 81 Mg Tablet,delayed Release (dr/ec) (Aspirin) ..... 1 tablet by mouth once a day Orders: P Jorge RIVER TERMINAL (38061) A nick Duplex Ultrasound (CPT-79035) Wai Ramon MD Electrophysiology: O rders: 9 9215 HIGH 40-54min (CPT-49302) Wai Ramon MD Electrophysiology Wai aguilrea MD Electrophysiology: H er updated medication list for this problem includes: Cardizem 60 Mg Tablet (Diltiazem hcl) ..... Take 1 1/2 tablet by mouth three times a day Aspirin 81 Mg Tablet,delayed Release (dr/ec) (Aspirin) ..... 1 tablet by mouth once a day Wai Ramon MD Electrophysiology: H er updated medication list for this problem includes: Cardizem 60 Mg Tablet (Diltiazem hcl) ..... Take 1 1/2 tablet by mouth three times a day Tikosyn 500 Mcg Capsule (Dofetilide) ..... Take 1 capsule by mouth twice a day Aspirin 81 Mg Tablet,delayed Release (dr/ec) (Aspirin) ..... 1 tablet by mouth once a day Orders: E KG (CPT-99670) 9 9215 HIGH 40-54min (CPT-50461) S chedule Followup (*) C OMPREHENSIVE METABOLIC PANEL, W/EGFR (16108) T SH, free T4, total T3 (7444) M AGNESIUM (622) P ROBNP, N TERMINAL (47730) C omplete Echo (CPT-18967) Wai Ramon MD Electrophysiology: H er updated medication list for this problem includes: Cardizem 60 Mg Tablet (Diltiazem hcl) ..... Take 1 1/2 tablet by mouth three times a day Tikosyn 500 Mcg Capsule (Dofetilide) ..... Take 1 capsule by mouth twice a day Aspirin 81 Mg Tablet,delayed Release (dr/ec) (Aspirin) ..... 1 tablet by mouth once a day Orders: E KG (CPT-44863) 9 9215 HIGH 40-54min (CPT-41270) S chedule Followup (*) Wai Ramon MD Electrophysiology Wai aguilera MD Electrophysiology: s table. ECHO: 05/17/21 EF 50%, mild-mod MR, mild TR Wai Ramon MD Electrophysiology:el evated today. 160/90. will increase cardizem to 90mg TID. will arrange for RPM. Discussion of benefits for remote patient monitoring took place. Patient gives consent for remote monitoring of physiologic parameters including, but not limited to, weight, blood pressure, pulse oximetry, respiratory flow rate. Augusta Osman NP Electrophysiology: s table. ECHO: 05/17/21 EF 50%, mild-mod MR, mild TR Augusta Osman NP Electrophysiology:mi ld. last ECHO 05/2021 EF 50%. will recheck ECHO in May Augusta Osman NP Electrophysiology:EK G today SR Her updated medication list for this problem includes: Cardizem 60 Mg Tablet (Diltiazem hcl) ..... Take 1 1/2 tablet by mouth three times a day Tikosyn 500 Mcg Capsule (Dofetilide) ..... Take 1 capsule by mouth twice a day Aspirin 81 Mg Tablet,delayed Release (dr/ec) (Aspirin) ..... 1 tablet by mouth once a day Eliquis 5mg BID Augusta Osman NP Electrophysiology: 1 00% AF burden on device interrogation today. Continues on eliquis. Plan on NICOLA/cardioversion in 3 weeks. w ill start her on tikosyn Her updated medication list for this problem includes: Tikosyn 500 Mcg Capsule (Dofetilide) ..... Take 1 capsule by mouth twice a day Cardizem 60 Mg Tablet (Diltiazem hcl) ..... Take 1 tablet by mouth three times a day Aspirin 81 Mg Tablet,delayed Release (dr/ec) (Aspirin) ..... 1 tablet by mouth once a day Silvino Fuentes Electrophysiology:pt statest that she did not decrease amio to daily as per last office note 05/31. she states that she stopped amio 'after 21 days' which was last week. she continues on cadizem 60mg TID. she turned in tele monitor last week. will review results with Dr. Sandy. EKG today AFIB 110. amio and diliazem for afib failed. she is a poor candidate for ablation. discussed options of pacemaker. recommendation for ppm for sick sinus rhythm, richard/tachy with possiblility of synchronized cardioversion 4-5 weeks. explained in detail with pt. 05/31/21 Cardioverted 05/18/2021 but back to A. fib W e will decrease amiodarone from 400 mg PO bid to once daily. Augusta Osman NP Electrophysiology: o n statin, vascepa, niacin Augusta Osman NP Electrophysiology:BP today 112/70 Her updated medication list for this problem includes: Cardizem 60 Mg Tablet (Diltiazem hcl) ..... Take 1 tablet by mouth three times a day Aspirin 81 Mg Tablet,delayed Release (dr/ec) (Aspirin) ..... 1 tablet by mouth once a day Augusta Osman NP Electrophysiology:st able. ECHO: 05/17/21 EF 50%, mild-mod MR, mild TR Augusta Osman NP Electrophysiology Wai aguilera MD Electrophysiology: H er updated medication list for this problem includes: Cardizem 60 Mg Tablet (Diltiazem hcl) ..... Take 1 tablet by mouth three times a day Aspirin 81 Mg Tablet,delayed Release (dr/ec) (Aspirin) ..... 1 tablet by mouth once a day Wai Ramon MD Electrophysiology:Ca rdioverted 05/18/2021 but back to A. fib W e will decrease amiodarone from 400 mg PO bid to once daily Her updated medication list for this problem includes: Amiodarone 400 Mg Tablet (Amiodarone) ..... Take 1 tablet by mouth twice a day Cardizem 60 Mg Tablet (Diltiazem hcl) ..... Take 1 tablet by mouth three times a day Aspirin 81 Mg Tablet,delayed Release (dr/ec) (Aspirin) ..... 1 tablet by mouth once a day Orders: E KG (CPT-73991) 9 9214 MOD 30-39min (CPT-36999) M onitor - Telemetry (Mobile Cardiac) (CPT-00193) Wai Ramon MD Electrophysiology: H er updated medication list for this problem includes: Cardizem 60 Mg Tablet (Diltiazem hcl) ..... Take 1 tablet by mouth three times a day Aspirin 81 Mg Tablet,delayed Release (dr/ec) (Aspirin) ..... 1 tablet by mouth once a day Orders: 14 MOD 30-39min (CPT-83922) Wai Ramon MD Electrophysiology:on statin and vascepa Augusta Osman NP Electrophysiology:el evated today 135/90, in AFIB RVR 130's c ontinue metoprolol 50mg BID a dding joe Osman NP Electrophysiology:EK G today AFIB RVR 130's. reports SOB, GAMBLE, fatigue, but no complaints of heart palpiations or fluttering. c urrently on metoprolol and eliquis. 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 will arrange for CV on . will check ECHO tomorrow. check labs today Augusta Jacqui SHIPMAN Electrophysiology:st ress test 2017 normal, EF 56% E CHO 2016 EF 60%, impaired LV relaxation, Augusta Jacqui SHIPMAN Electrophysiology Fo llow up : T he following medications were removed from the medication list: Corgard 80 Mg Oral Tablet (Nadolol) ..... One tab daily Her updated medication list for this problem includes: Metoprolol Tartrate 50 Mg Oral Tablet (Metoprolol tartrate) ..... One tab. twice daily, increase dosage to 50mg one tablet twice a day, discontinue taking corgard. Aspirin Adult Low Dose 81 Mg Oral Tablet Delayed Release (Aspirin) ..... One tab by mouth daily Orders: S TR - Adenosine (CPT-06385) 9 9215 HIGH Complex (CPT-67827) Wai Ramon MD Electrophysiology Fo llow up :If stress test is abnormal, plan for cardiac cath. The following medications were removed from the medication list: Corgard 80 Mg Oral Tablet (Nadolol) ..... One tab daily Her updated medication list for this problem includes: Metoprolol Tartrate 50 Mg Oral Tablet (Metoprolol tartrate) ..... One tab. twice daily, increase dosage to 50mg one tablet twice a day, discontinue taking corgard. Aspirin Adult Low Dose 81 Mg Oral Tablet Delayed Release (Aspirin) ..... One tab by mouth daily Orders: S TR - Adenosine (CPT-16273) Wai Ramon MD Electrophysiology Fo llow up : B P today: 142/90 P rior BP: 132/72 (09/04/2017) The following medications were removed from the medication list: Corgard 80 Mg Oral Tablet (Nadolol) ..... One tab daily Her updated medication list for this problem includes: Metoprolol Tartrate 50 Mg Oral Tablet (Metoprolol tartrate) ..... One tab. twice daily, increase dosage to 50mg one tablet twice a day, discontinue taking corgard. Aspirin Adult Low Dose 81 Mg Oral Tablet Delayed Release (Aspirin) ..... One tab by mouth daily Wai Ramon MD Electrophysiology:Si nus rhythm today. No complaints of heart palpiations or fluttering. C ontinue metoprolol. C ontinue eliquis. Erin Crocker NP Electrophysiology:Denies current dyspnea. Erin Crocker NP Electrophysiology:Mo nitor BP with log at home and bring at next visit. C ontinue metoprolol. Erin Crocker [employer] DEVELOPER EP: O rders: S NOMED-CT: [id number] Current Medications Documented (SCT-[id number]) 9 9215 HIGH Complex (CPT-49981) M [facility] Cardiac Tele (CPT-53644) S [facility] Study - split night (CPT-53435) S chedule Followup (*) BP today: 110/78 P rior BP: 130/90 (01/23/2017) Her updated medication list for this problem includes: Metoprolol Tartrate 25 Mg Tabs (Metoprolol tartrate) ..... One tab. twice daily Aspirin Adult Low Dose 81 Mg Oral Tbec (Aspirin) ..... One tab by mouth daily Corgard 80 Mg Oral Tabs (Nadolol) ..... One tab daily Delfino Suarez EP: O rders: S NOMED-CT: [id number] Current Medications Documented (SCT-[id number]) 9 15 HIGH Complex (CPT-61875) M [facility] Cardiac Tele (CPT-80987) S [facility] Study - split night (CPT-50407) S chedule Followup (*) Delfino Suarez EP:PMD manages H er updated medication list for this problem includes: Niacin Er (antihyperlipidemic) 1000 Mg Oral Cr-tabs (Niacin (antihyperlipidemic)) ..... Two tabs daily Simvastatin 40 Mg Oral Tabs (Simvastatin) ..... One tab daily Delfino Suarez EP:compliant with mo uthguard O rders: S NOMED-CT: [id number] Current Medications Documented (SCT-[id number]) 9 9215 HIGH Complex (CPT-16542) M obile Cardiac Tele (CPT-13122) S [facility] Study - split night (CPT-26686) S chedule Followup (*) S [facility] Study Titration (CPT-39008) Delfino Suarez EP:Normal adenosine nuclear stress test today BP today: 110/78 P rior BP: 130/90 (01/23/2017) Orders: S NOMED-CT: [id number] Current Medications Documented (SCT-[id number]) 9 9215 HIGH Complex (CPT-32602) M obile Cardiac Tele (CPT-83026) S [facility] Study - split night (CPT-98631) S chedule Followup (*) Delfino Suarez EP:CHADS VASCscore> 2 s top digoxin continue eliquis s tart Metoprolol Tartrate 25 Mg Tabs (Metoprolol tartrate) ..... One tab. twice daily w ould not use multaq in this case H er updated medication list for this problem includes: Metoprolol Tartrate 25 Mg Tabs (Metoprolol tartrate) ..... One tab. twice daily Aspirin Adult Low Dose 81 Mg Oral Tbec (Aspirin) ..... One tab by mouth daily Corgard 80 Mg Oral Tabs (Nadolol) ..... One tab daily Delfino Suarez Cardiology:The patie nt is/was actively using CPAP on a regular basis. She has been benefiting from therapy and should continue use. Wai Ramon MD Cardiology: O rders: F VC - 82398 (81021) F RC - 25514 (50328) D LCO - 43870 (38016) C omplete Echo (CPT-78676) 9 9205 HIGH Complex (CPT-68560) Her updated medication list for this problem includes: Aspirin Adult Low Dose 81 Mg Oral Tbec (Aspirin) ..... One tab by mouth daily Corgard 80 Mg Oral Tabs (Nadolol) ..... One tab daily Wai Ramon MD Cardiology: O rders: F VC - 13898 (77596) F RC - 06402 (64761) D LCO - 20650 (51773) C omplete Echo (CPT-08325) 9 9205 HIGH Complex (CPT-82337) Her updated medication list for this problem includes: Aspirin Adult Low Dose 81 Mg Oral Tbec (Aspirin) ..... One tab by mouth daily Corgard 80 Mg Oral Tabs (Nadolol) ..... One tab daily Wai Ramon MD Date Name Complete Echo Complete Echo Stress Regadenoson Carotid Duplex Bilat eral CT Head without cont rast Venous Doppler Bilat eral LE - Reflux Venous Doppler Bilat eral LE - Reflux Venous Doppler Bilat eral LE VenaSeal Venous Doppler Bilat eral LE - Reflux LIPID PANEL CBC (INCLUDES DIFF/P LT) BASIC METABOLIC PANE L W/EGFR PROTHROMBIN TIME WIT H INR X-Ray, Chest - Routi ne X-Ray, Chest - Routi ne Venous Doppler Bilat eral LE - Reflux DLCO - 87462 FRC - 32435 FVC - 90658 Venous Doppler Bilat eral LE - Reflux Complete Echo CardioIQ Advanced Li pid Panel with Inflammation ([facility]) Carotid Duplex Bilat eral Aorta Duplex Ultraso und Complete Echo PROBNP, N TERMINAL MAGNESIUM TSH, free T4, total T3 COMPREHENSIVE METABO LIC PANEL, W/EGFR Complete Echo NICOLA/CV - [facility] URINALYSIS, COMPLETE COMPREHENSIVE METABO LIC PANEL, W/EGFR CBC (INCLUDES DIFF/P LT) Partial Thromboplast in Time, Activated PROTHROMBIN TIME WIT H INR Pacemaker Dual Chamb er - [facility] DLCO - 52425 FRC - 21156 FVC - 72274 Monitor - Telemetry (Mobile Cardiac) Monitor - Telemetry (Mobile Cardiac) MAGNESIUM PROTHROMBIN TIME WIT H INR Partial Thromboplast in Time, Activated CBC (H/H, RBC, INDIC ES, WBC, PLT) TSH, free T4, total T3 COMPREHENSIVE METABO LIC PANEL, W/EGFR Cardioversion - [facility] Complete Echo STR - Adenosine Sleep Study Titratio n Sleep Study - split night Mobile Cardiac Tele STR - Adenosine Complete Echo DLCO - 05530 FRC - 16434 FVC - 13556 HISTORY OF PROCEDURES Procedure Date Procedure Name Provider Procedure Notes S tatus Schedule Followup Wai aguilera MD [address] RAMON completed EKG Wai rodriguez MD completed Schedule Followup Wai aguilera MD [address] RAMON completed EKG Wai rodriguez MD completed Schedule Followup Wai aguilera MD [address] Ramon completed EKG Wai rodriguez MD completed EKG Wai rodriguez MD completed Spirometry Wai rodriguez MD completed FVC / MVV with bronchodilator - 98247 Wai Ramon MD completed BLOOD COUNT HEMOGLOBIN Wai carreon MD completed FRC - 46530 Wai rodriguez MD completed SpO2 w/o 6min walk/titration Wai Ramon MD completed SVC - 62966 Wai rodriguez MD completed DLCO - 52046 Wai rodriguez MD completed EKG Wai rodriguez MD completed Schedule Followup Wai aguilera MD completed EKG Wai rodriguez MD completed Schedule Followup Wai RAMON 6 MONTHS completed EKG Wai rodriguez MD completed Spirometry Wai rodriguez MD completed FVC / MVV with bronchodilator - 73089 Wai Ramon MD completed BLOOD COUNT HEMOGLOBIN Wai carreon MD completed FRC - 54472 Wai rodriguez MD completed SpO2 w/o 6min walk/titration Wai Ramon MD completed SVC - 03912 Wai rodriguez MD completed DLCO - 20853 Wai rodriguez MD completed Holter, 24 or 48 Wai urrutia MD completed Event Monitor Wai rodriguez MD completed Event Monitor Wai rodriguez MD completed Event Monitor Wai rodriguez MD completed EKG Wai rodriguez MD completed EKG Wai rodriguez MD completed EKG Wai rodriguez MD completed Stress EKG Wai rodriguez MD completed Regadenoson, 4 units Donnie Mar MD completed Cardiolite, 2 units Donnie Mar MD completed SPECT Images Donnie Mar MD completed Schedule Followup ulius Roman aguilera MD in 1 yr completed EKG Wai rodriguez MD completed Schedule Followup ulius Roman aguilera MD completed EKG Wai rodriguez MD completed SNOMED-CT: [id number] Current Medications Documented Heladio Watts DO completed Event Monitor Wai rodriguez MD completed Stress EKG [place] Arita MD complet ed Regadenoson, 4 units [place] Arita MD completed Cardiolite, 2 units [place] Arita MD completed SPECT Images [place] Arita MD compl eted Schedule Followup Wai aguilera MD 6 months completed EKG Wai rodriguez MD completed SNOMED-CT: [id number] Current Medications Documented Wai Ramon MD completed FVC / MVV with bronchodilator - 79936 Wai Ramon MD completed BLOOD COUNT HEMOGLOBIN Wai carreon MD completed FRC - 18097 Wai rodriguez MD completed SpO2 - 18992 Wai rodriguez MD completed DLCO - 63392 Wai rodriguez MD completed EKG Wai rodriguez MD completed SNOMED-CT: [id number] Current Medications Documented Wai Ramon MD completed
--- OUTSIDE RECORDS SUMMARY | 2024-11-19 11:58 | XMS_ITS | Clinical Summary ---
Author Organization [facility] Address [address] [place] [address] Care Team Providers Care Digital Marketing Executive Name Role Phone Easton Quintana MD Primary Care Provider + Jim Watkins MD Unavailable [phone] Allergies Active Allergy Reactions Criticality Noted Date Comments Sulfa (Sulfonamide Antibiotics) Rash Reaction: RASH/HIVES, Reaction: Rash, Sulfanilamide Rash Reaction: Rash, Medications SYMBICORT 160-4.5 mcg/actuation inhaler Inhale 2 puffs 2 (two) times a day 02/22/20 17 Active magnesium oxide (MAG-OX) 400 mg (241.3 mg elemental) tabletIndicatio ns:hypomagnesem ia Take 1 tablet (400 mg total) by mouth 2 (two) times a day 11 02/21/20 17 Active vit A,C and V-kscuqz-bynwos ls (OCCUVITE with LUTEIN) 1,000 unit-200 mg-60 [...] mg total) by mouth daily Active calcium qyu-klw-M2-Zn-c op-bartolo 250 mg-40 mg- 125 unit-3.75mg tablet [...] TO RED AREAS ON FACE BID 05/04/20 025 Discontinued propranolol LA (INDERAL LA) 120 mg 24 hr capsule 09/18/19 025 Discontinued(A lternate therapy) furosemide (LASIX) 10 [...] 09/19/2022 Assessment & Plan (09/19/2022 3:08 PM SKIN DRIER): Will treat with nystatin prn Dryness measure [...] check. Assessment & Plan (09/19/2022 3:07 PM SKIN DRIER): Complete exam done. Assessment & Plan (09/20/2021 10:09 AM SKIN DRIER): Complete exam done. Not a candidate for pap. RTO 12m. Sick sinus syndrome 06/21/2021 Pulsatile tinnitus of right ear 08/07/2019 Assessment & Plan (08/07/2019 10:58 AM SKIN DRIER): Zpak with a meal daily CT Angiogram - call with results Hearing Test Chronic maxillary sinusitis 08/07/2019 Assessment & Plan (08/07/2019 10:59 AM SKIN DRIER): Flonase 2 sprays into each nostril while looking down over the sink, do not sniff in or blow nose after use daily for one month Zpak with a meal daily Tinnitus of right ear 08/07/2019 Assessment & Plan (08/07/2019 10:58 AM SKIN DRIER): Hearing test, call with results Iron deficiency anemia 07/09/2019 Overview (07/09/2019): Added automatically from request for surgery [id number] 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 Acute gastrointestinal hemorrhage 07/02/2019 Overview (07/02/2019): Added automatically from request for surgery [id number] Anemia 07/02/2019 Overview (07/02/2019): Added automatically from request for surgery [id number] Assessment & Plan (07/21/2019 12:05 PM SKIN DRIER): Will scheduled small bowel endoscopy to complete [...] (04/01/2019): Added automatically from request for surgery [id number] History of colon polyps 04/01/2019 Overview (04/01/2019): Added automatically from request for surgery [id number] Multiple gastric ulcers 2017 Assessment & Plan [...] (2017 4:41 PM CDT): Start back on eliquis and aspirin on Saturday as advised. F/u [...] today Assessment & Plan (09/19/2022 3:07 PM SKIN DRIER): Vulva is healthy today Assessment & Plan (09/20/2021 10:09 AM SKIN DRIER): asx today. Will continue to follow. Encounters Date Type Department Care Team Description 11/18/2024 Results Follow-Up [facility] at [place] [address] [place] [address] Sharita Wei MD 11/13/2024 10:00 AM CDT - 11/13/2024 10:30 AM CDT Surgery [facility] [address] [place] [address] Sharita Wei MD COLON REMOVAL SNARE 11/13/2024 9:51 AM CDT Anesthesia Event [facility] [address] [place] [address] Mike Ulloa MD 11/13/2024 8:27 AM CDT - 11/13/2024 11:13 AM CDT Hospital Encounter [facility] [address] [place] [address] Sharita Wei MD Personal history of colonic polyps; Family history of colon cancer; Encounter for screening colonoscopy; History of colonic polyps Discharge Disposition: Discharge to home or self care 09/03/2024 1:25 PM SKIN DRIER - 09/03/2024 11:59 PM SKIN DRIER Hospital Encounter [place] [id number] Rad, Amh Fluoro Disorders of diaphragm Discharge Disposition: Discharge to home or self care 09/03/2024 1:25 PM SKIN DRIER - 09/03/2024 11:59 PM SKIN DRIER Hospital Encounter [address] [address] Abnormal results of pulmonary function studies; Other disorders of lung Discharge Disposition: Discharge to home or self care from Last 3 Months Immunizations Immunization Administration Dates Next Due Influenza, [...] 11/29/2010,04/15/2000 ZOSTER LIVE 01/21/2008 ZOSTER Recombinant 08/06/2019,06/07/2019 Surgical History Surgery Date Site/Laterality Comments OTHER SURGICAL HISTORY 09/02/1999 - 09/01/2000 CAD: CABG OTHER SURGICAL HISTORY 09/02/1964 - 09/01/1965 : OTHER SURGICAL HISTORY 09/02/1966 - 09/01/1967 : OTHER SURGICAL HISTORY heart disease: Quad Bypass OTHER SURGICAL HISTORY sterilization: BTL OTHER SURGICAL HISTORY S. I. : TVT by Dr. Zuluaga BLADDER SUSPENSION bladder suspension COLONOSCOPY 02/16/2014 COLONOSCOPY 04/20/2019 OTHER SURGICAL HISTORY iron infusions CARDIAC PACEMAKER PLACEMENT 06/02/2021 - 07/02/2021 Left COLONOSCOPY 03/02/2022 - 04/01/2022 Medical History Medical History Date Comments Hx Other Medical 01-RN MIDWIFE Hx Other Medical 02-GI Myocardial infarction (HCC) Myoc ardial infarction Hyperlipidemia Hyperlipidemia Hx Other Medical CAD Hx Other Medical OA L knee Hx Other Medical macrocytosis Hx Other Medical colonic polypos is Rosacea rosacea Hx Other Medical skin CA Hx Other Medical mild psoriasis Hx Other Medical 1964 ; Outc ome: 40 week 8 lb(s) 14 oz Male Hx Other Medical 1966 ; Outc ome: 8 lb(s) 6 oz Female Cardiac disease 06/25/2000 heart disease Hx Other Medical 1985 sterilization Hx Other Medical 2005 S. I. Hx Other Medical Knee arthritis Hx Other Medical 11/03/2012 Total Knee repl acement; Laterality: left Hx Other Medical TKR-Right Hx Other Medical Cataract remova l-Left Hx Other Medical cataract remova l-right Hx Other Medical Lasik surgery-r ight eye Diverticulosis A-fib (HCC) Hypertension History of transfusion Sleep apnea Anemia A-fib (HCC) 2017 Colon polyp Iron deficiency anemia Family History Medical History Relation Name Comments Other Brother 2 Alive and well; Colon cancer Child son had uc Bladder Cancer Father Cancer -bladd er; age 85 Heart disease Father Heart disease; Hypertension Father Hypertension; Stroke Father Stroke; Coronary artery disease Maternal Grandmother Coronary artery disease; Dementia Mother Dementia; age 8 4 Depression Mother Depression; Hyperlipidemia Mother Hyperlipidemi a; Other Mother Hysterectomy fo r fibroids; Cancer Neg Hx no breast or gy n cancer no change 02/10/24 cmt Relation Name Status Comments Brother 1 Alive Brother 2 Child son Alive Father Alive Maternal Grandmother Mother Alive Social History Tobacco Use Types Packs/Day Years [...] on file Legal Sex Female 8:07 AM SKIN DRIER Gender Identity Female 09/12/2021 8:12 PM SKIN DRIER Sexual Orientation Straight 09/12/2021 8: 12 PM SKIN DRIER Obstetrics History Para Term AB IAB SAB Ectopic Multiple Livin g Live Births 2 2 2 Date Outcome GA Total Labor Labor/2nd/3rd Weight Sex Type Anes PTL Kaelyn A1 A5 Name Clin Term Term Last Filed Vital Signs Vital Sign Reading [...] 11/13/2024 8:41 AM CDT Plan of Treatment Health Maintenance Due Date Last Done Comments Hepatitis B Screening 1963 Well Visit 65+ 2008 DTaP/Tdap/Td Vaccine (1 - Tdap) 11/30/2010 1, 04/15/2000 Osteoporosis Screening-Bone Density Scan 01/12/2015 01/12/2013 Fall Risk Assessment 03/23/2023 03/23/2022, 08/22/2021, 01/10/2021, Additional history exists Covid-19 Vaccine (2023-2 5 season) 2024 05/21/2023, 01/15/2022, 01/15/2022, Additional history exists Influenza Vaccine (#1) 2024 , 06/15/2022, 06/26/2021, Additional history exists Depression Screening 02/09/2025 02/10/2024, 09/19/2022, 09/13/2021, Additional history exists Pneumococcal vaccine 65+ Completed 12/09/2012, 04/02 Zoster Vaccine Completed 08/06/2019, 1001/2019, 01/21/2008 Medical Devices Implanted Type Area Cad Librarian Device Identifier Shelf Expiration Date Model / [...] Read Routine (OP Routine) 09/03/2024 2:33 PM SKIN DRIER Disorders of diaphragm CT CHEST WO CONTRAST Schedule Routine, Read Routine (OP Routine) 09/03/2024 2:15 PM SKIN DRIER Abnormal results of pulmonary function studies Other disorders of lung DEXA SCAN Routine 01/12/2013 from Last 3 Months or Most Recently Relevant to Health Maintenance Results * Surgical pathology (11/13/2024 2:13 PM CDT) Tissue (Colon, Biopsy) 11/13/2024 10:22 AM CDT Tissue (Polyp(s), colon/colorectal, esophageal, gastric) 11/13/2024 10:22 AM CDT Narrative PATHOLOGY [facility] - 11/16/2024 12:43 PM CDT EPIC results best viewed via link to PDF [facility] Department of Pathology [address] [place] [address] Note to Patients: This report may contain [...] Final Report Patient Name: TEETEE AGUDELO Address: [address] [place] [address] , [place] [address]- Gender: F : 1945 (Age: 79) Service: Gastro Location: [facility] Hospital #: [id number] Patient Type: [facility] Taken: 11/13/2024 Received: 11/13/2024 Accessioned: 11/13/2024 Reported: [...] submitted in two formalin containers labeled TEETEE Diaz. The first container is labeled cecum biopsy . It is 2 fragments of jeter tissue between 2 and 3 mm. All in A. B. The second container is labeled hepatic flexure polyp . It is 6 fragments of jeter tissue between <1 and 2 mm. All in B. T.A. Mahogany Hogue., Christopher./Tisha Brennan M.D. REPORT IMAGES AND SCANNED DOCUMENTS, IF INCLUDED, ONLY VIEWABLE IN PDF VERSION OF REPORT The performance characteristics of some immunohistochemical stains, fluorescence in-situ hybridization tests and immunophenotyping by flow cytometry cited in this report (if any) were determined by the Surgical Pathology Department at [facility] as part of an ongoing quality management coordinator program and in compliance with federally mandated [...] possibility of false negativity on decalcified specimens Sharita Wei MD LAB PATHOLOGY ORDERABLES F inal Result PATHOLOGY [facility] [address] [place] [address] * Colonoscopy (11/13/2024 8:29 AM CDT) Anatomical Region Laterality Modality Other Narrative Procedure Note Sharita Wei MD - 11/13/2024 8:29 AM CDT [facility] Patient Name: Teetee Agudelo Procedure Date: 11/13/2024 8:29 AM Date of : 1945 Admit Type: Outpatient Age: 79 Gender: Female Attending MD: Sharita Wei M.D. Room: [facility] ENDOSCOPY ROOM 1 Note Status: Finalized Patient [...] under direct vision. The Pediatric Colonoscope [id number]-[id number] was introducedthrough the anus and advanced to [...] clips were successfully placed (MR conditional). Clip peanut separator: Transactis. There was no bleeding at the end of theprocedure. Multiple small and large-mouthed diverticula were found in thesigmoid colon and descending colon. Internal hemorrhoids were found during retroflexion. The hemorrhoids were medium-sized. Coagulation for hemostasis of internal hemorrhoids using IRC (Infrared Coagulation) was successful. Electronically signed by Ahmad Karadaghy, M.D. Sharita Wei M.D. 11/13/2024 10:41:21 AM Number of Addenda: 0 Note Initiated On: 11/13/2024 8:29 AM Procedure Code(s): --- Professional --- 50099, 59, Colonoscopy, flexible; with control of bleeding, anymethod 36489, Colonoscopy, flexible; with removal of tumor(s), polyp(s), or other lesion(s) by snare technique 92374, 59, Colonoscopy, flexible; with biopsy, single or multiple Diagnosis Code(s): --- Professional --- Z80.0, Family history of malignant neoplasm of digestive organs Z86.010, Personal history of colonic polyps K64.8, Other hemorrhoids K63.89, Other specified diseases of intestine D12.3, Benign neoplasm of transverse colon (hepatic flexure orsplenic flexure) K57.30, Diverticulosis of large intestine without perforation orabscess without bleeding CPT copyright 2020 [employer]. All rights reserved. The codes documented in this report are preliminary and upon light bulb assembler reviewmay be revised to meet current compliance requirements. 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 Breathing troubles x 1-2 years Per pt, has restricted breathing. FT 0.3 min Dose 371.3 mGy COMPARISON: 06/20/2024 RADIATION DOSE: Dose: 18861.42 uGym2 Dose Area Product (DAP) TECHNIQUE: Fluoroscopy [...] Checo Cleary D.O. 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 Breathing troubles x 1-2 years Per pt,has restricted breathing. FT 0.3 min Dose 371.3 mGy COMPARISON: 06/20/2024 RADIATION DOSE: Dose: 38632.42 uGym2 Dose Area Product (DAP) TECHNIQUE: Fluoroscopy [...] Checo Cleary D.O. PS: PS Report ID: [id number] Reading Location: [id number] Gregory Curtis MD IMG FLUOROSCOPY PROCED URES Final Result * CT Chest WO Contrast (09/03/2024 2:15 PM SKIN DRIER) Anatomical Region Laterality Modality Body N/A Computed Tomogra phy 09/07/2024 1:09 PM SKIN DRIER Narrative 09/07/2024 1:12 PM SKIN DRIER EXAM DESCRIPTION: CT CHEST WO CONTRAST REASON [...] 1:12 PM - Electronically signed by Navi Willis M.D. KN: [id number] Report ID: [id number] Reading Location: [id number] Procedure Note Navi Willis MD - 09/07/2024 [...] 1:12 PM - Electronically signed by Navi Willis M.D. KN: [id number] Report ID: [id number] Reading Location: [place] [address] Gregory Curtis MD IM CT PROCEDURES Jeannie l Result * DEXA SCAN (01/12/2013) DEXA Scan Normal Anatomical Region Laterality Modality Other Historical Provider HEALTH MAINTENANCE Final Result from Last 3 Months or Most Recently Relevant to Health Maintenance Insurance AETNA MEDICARE AETNA MEDICARE AETNA MEDICARE Advance Directives For more information, please contact: [phone] * Full Code (Latest Code Status on [...] 6:55 AM 07/14/2019 12:56 PM Care Teams Digital Marketing Executive Relationship Specialty Start Date End Date Easton Quintana MD [address] [place] [address] PCP - General 11/30/16 Jim Watkins MD [facility] [place] [address] Medical Oncologist/Voice Studies Director Hematology and Oncology 12/29/19
--- OUTSIDE RECORDS SUMMARY | 2024-11-19 12:06 | XMS_ITS | CONTINUITY OF CARE DOCUMENT ---
Author Name ho, ho Address Unknown Organization [facility] Address [address] [place] [address] Phone [phone] Care Team Providers Care Nuclear Process Engineer Name Role Phone Tristen PETIT, Wai Unavailable [phone] NILES PETIT, JESÚS Unavailable JESÚS CAGE MD Unavailable [phone] PROBLEMS Condition Status Date Provider Notes S/P [...] MD Sick sinus syndrome active Augusta Osman PRIMARY CARE COORDINATOR Dizziness and giddiness active Wai canales MD Chest pain-type to be determined active Samantha Ramon MD Atrial fib paroxysmal active Wai aguilera MD CAD -s/p 4V CABG 2000 active Silvino Fuentes Sleep apnea active Wai Ramon MD HTN essential active Wai Ramon MD Dyslipidemia mixed active Wai Ramon MD ENCOUNTERS Date Type Provider Location Encounter Diag nosis - In-person encounter Office Visit Wai Ramon [facility] - [facility]-person encounter Office Visit Wai Ramon [facility] - In-person encounter Office Visit Andrew Lucio MD [facility] - In-person encounter Office Visit Wai Ramon MD [facility] DizzinessLymphedema - In-person encounter Office Visit Andrew Lucio MD [facility] - In-person encounter Office Visit Andrew Lucio MD [facility] - In-person encounter Office Visit Andrew Lucio MD [facility] - In-person encounter Office Visit Wai Ramon MD [facility] Venous insufficiency - In-person encounter Office Visit Wai Ramon MD [facility] Office - In-person encounter Office Visit Wai Ramon MD [facility] Tremor, both hands, L > RLeg edema, bilateral - In-person encounter Office Visit Wai Ramon MD [facility] Carotid bruit bilateral - In-person encounter Office Visit Wai Ramon MD [facility] - In-person encounter Office Visit Andrew Lucio MD [facility] - In-person encounter Office Visit Wai Ramon MD [facility] CAD -s/p 4V CABG 2000 - In-person encounter Office Visit Wai Ramon MD [facility] Sick sinus syndrome - In-person encounter Office Visit Wai Ramon MD [facility] Dizziness and giddiness - In-person encounter Office Visit Wai Ramon MD [facility] - In-person encounter Office Visit Wai Ramon MD [facility] Chest pain-type to be determined - In-person encounter Office Visit Wai Ramon MD [facility] - In-person encounter Office Visit Wai Ramon MD [facility] - In-person encounter Office Visit Wai Ramon MD [facility] Dyslipidemia mixedHTN essentialSleep apneaCAD -s/p 4V CABG 2000Atrial fib paroxysmal VITAL SIGNS Date Observation Value Provider Body Mass Index (Ratio) 36.21 kg/m2 Sharif Wilde blood pressure, cuff size large Ke rri Gruenenfeld blood pressure, diastolic 70 mm[Hg] Ke rri Gruenenfeld blood pressure, systolic 126 mm[Hg] Chantel ri Zoila oxygen saturation, oximetry 93 % Adelaide Zoila respiratory rate E&M 12 /min Adelaide [facility]. [facility] pulse rate 71 /min Adelaide Abimael [facility] weight E&M 211 [lb_av] Adelaide Julionedavie [facility] height E&M 64 [in_i] Adelaide Julionepennie [facility] Body Mass Index (Ratio) 36.73 kg/m2 Tariq [...] MD blood pressure, diastolic 84 mm[Hg] jairo Boalnos blood pressure, systolic 160 mm[Hg] She caleb [...] amador height E&M 64 [in_i] Adelaide Abimael [facility] Body Mass Index (Ratio) 37.07 kg/m2 Sund joe Lucio MD Inhaled O2 2 L/min Jennifer Hinojosa blood pressure, cuff size regular Fa vinny Alsey blood pressure, diastolic 89 mm[Hg] Fa vinny Alsey blood pressure, systolic 144 mm[Hg] Allen leandro Alsey oxygen saturation, oximetry 92 % Jennifer Alsey respiratory rate E&M 16 /min Jennifer Leung iller pulse rate 70 /min Jennifer Alsey weight E&M 216 [lb_av] [facility] height E&M 64 [in_i] [facility] Body Mass Index (Ratio) 37.07 kg/m2 Sund joe Lucio MD blood pressure, diastolic 77 mm[Hg] Catina Milian blood pressure, systolic 135 mm[Hg] [facility] heljeremias Milian blood pressure, cuff size [...] Dallaskristian pulse rate 118 /min Adelaide Varghese [facility] respiratory rate E&M 18 /min Adelaide jorgeelder blood pressure, cuff size large Ke rri Zoila blood pressure, diastolic 72 mm[Hg] Ke rri Celenaeld blood pressure, systolic 122 mm[Hg] Chantel Masters weight E&M 208 [lb_av] Adelaide Varghese [facility] height E&M 64 [in_i] Adelaide Varghese [facility] Body Mass Index (Ratio) 36.04 kg/m2 Cm paula Huffman blood pressure, diastolic 90 mm[Hg] Mindy [facility] blood pressure, systolic 135 mm[Hg] Romi [facility] blood pressure, diastolic 90 mm[Hg] [...] que pulse rate 78 /min Adelaide Varghese [facility] weight E&M 214 [lb_av] Adelaide Varghese er height E&M 64 [in_i] Adelaide Varghese [facility] Body Mass Index (Ratio) 36.73 kg/m2 Rashaad Crocker NP blood pressure, diastolic 72 mm[Hg] Huseyin Rankin blood pressure, systolic 132 mm[Hg] Danielle singh [facility] pulse rate 68 /min Mulu[facility]a [facility] respiratory rate E&M 16 /min Mulugeta [facility] oxygen saturation, oximetry 98 % Mulugeta [facility] weight E&M 214 [lb_av] [facility] height E&M 64 [in_i] [facility] Body Mass Index (Ratio) 35.36 kg/m2 [facility] in [facility] respiratory rate E&M 18 /min Amada Delgadillo pulse rate 58 /min Amada Delgadillo oxygen saturation, oximetry 98 % Amada Delgadillo weight E&M 206 [lb_av] Amada Delgadillo blood pressure, diastolic 78 mm[Hg] Saul daria Delgadillo blood pressure, systolic 110 mm[Hg] Ronak ramirez Delgadillo blood pressure, cuff size regular Saul daria Delgadlilo height E&M 64 [in_i] Amada Delgadillo Body [...] Normal Absolute Neutrophil count 5745 cells/mcL [facility] [id number] Normal mean platelet volume 9.2 fL [facility] [...] Rate (calc) 86 mL/min/{1.73 _m2} [facility] C, [place] [address] cholesterol, non-HDL, total 102 mg/dL [facility] C, [place] [address] HDL CHOLESTEROL 62 mg/dL [facility] >=40 Normal C, [place] [address] triglyceride, serum, fasting 209 mg/dL [facility] <=149 High C, [place] [address] cholesterol, serum 164 mg/dL [facility] 30-199 Normal C, [place] [address] NT-pro BNP 92 [facility] <=450 Normal C, [place] [address] aspartate aminotransferase (SGOT), serum 24 1/L [facility] 10-45 Normal C, [place] [address] alanine aminotransferase (SGPT), serum 19 1/L [facility] 7-45 Normal C, [place] [address] Alkaline phosphatase 48 [facility] 40-130 Normal C, [place] [address] albumin, serum 4.3 g/dL [facility] 3.5-5.0 Normal C, [place] [address] protein, total, serum 7.9 g/dL [facility] 6.5-8.5 Normal C, [place] [address] bilirubin, serum, total 0.3 mg/dL [facility] 0.1-1.2 Normal C, [place] [address] calcium, serum 9.5 mg/dL [facility] 8.5-10.3 Normal C, [place] [address] blood glucose, random 102 mg/dL [facility] 70-199 Normal C, [place] [address] creatine, serum 0.72 mg/dL [facility] 0.60-1.10 Normal C, [place] [address] urea nitrogen, blood 14 mg/dL [facility] 8-25 Normal C, [place] [address] anion gap, serum 10 mmol/L [facility] 2-15 Normal C, [place] [address] carbon dioxide, venous blood 28 mmol/L [facility] 22-32 Normal C, [place] [address] chloride, serum 102 mmol/L [facility] 97-110 Normal C, [place] [address] potassium, serum 4.3 MMOL/L [facility] 3.3-4.9 Normal , [place] [address] sodium, serum 140 mmol/L [facility] 135-145 Normal C, [place] [address] thyroid stimulating hormone, serum 2.13 MCIUNIT/ML [facility] 0.30-4.20 Normal C, [place] [address] prothrombin time (patient) 11.4 s [facility] 9.0-11.5 [...] Normal Absolute Neutrophil count 4479 cells/mcL [facility] 2121-8225 Normal mean platelet volume 8.8 fL [facility] [...] day Augusta Osman NP A & D 44853-593 UNIT ORAL CAPSULE completed one tab daily [...] ORAL TABLET completed One tab daily - Wai Ramon MD montelukast 10 mg tablet active [...] Wai aguilera MD smoking status Former smoker Wai canales MD smoking, year quit 50 Vaishali greynadeen number of years as a smoker 15 a Vaishali Bolanos smoking history, tot al pack/year 10 Vaishali Bolanos smoking history, tot al pack/day 0.5 Vaishali Bolanos cigarette use yes Vaishali Bolanos smoking status Former smoker Vaishali toribio number of years as a smoker 15 a Augusta Osman PRIMARY CARE COORDINATOR smoking history, tot al pack/year 10 Augusta Tirador PRIMARY CARE COORDINATOR smoking history, tot al pack/day 0.5 Augusta Osman PRIMARY CARE COORDINATOR cigarette use yes Augusta Lu er PRIMARY CARE COORDINATOR smoking status Former smoker Augusta thakkar PRIMARY CARE COORDINATOR Exercise counseling Yes Augusta Osman PRIMARY CARE COORDINATOR smoking status Former smoker Jennifer Hinojosa smoking, [...] as a smoker 15 a Augusta Osman PRIMARY CARE COORDINATOR smoking history, tot al pack/day 0.5 Augusta Osman PRIMARY CARE COORDINATOR cigarette use yes Augusta Aly wheeler PRIMARY CARE COORDINATOR smoking status Former smoker Augusta Amarilis huynher PRIMARY CARE COORDINATOR social history reviewed E&M revi ewed - [...] ewed - no changes required Augusta Osman PRIMARY CARE COORDINATOR smoking, year quit 50 Adelaide Delgado mckay [...] Management Plan continue current therapy Erin Crocker PRIMARY CARE COORDINATOR HRA, CV Assess/Plan, Angina (inactive) Management Plan continue current therapy Dago Minor PRIMARY CARE COORDINATOR HRA, CV Assess/Plan, Angina (inactive) Management Plan continue current therapy Wai Ramon MD FAMILY HISTORY Family Member Condition Father Family History of Co ngestive Heart Failure: Mother Family History of Co ngestive Heart Failure: INSURANCE PROVIDERS Payer name Policy type / Coverage type [place] red libertarian ID A[employer] MEDICARE GURVINDER PPO Medicare [id number] 200 ADVANCE DIRECTIVES Name Date POWER OF INSTITUTION DIRECTOR LIVING WILL ON FILE TREATMENT PLAN Date Name Performer [id number],C,s he is s/p left GSV venaseal 05/2023 [...] persist. They need the compression pump from [facility] to manage the lymphedema at home. a fter repeating the doppler if there are no other veins to treat will need the pumps. Andrew Lucio MD [id number],C, s /p left GSV venaseal 05/2023 p ost doppler shows occluded left GSV, and no DVT s till having swelling and pain and redness to the Kelly Emily Cornejo PRIMARY CARE COORDINATOR [id number],C, she is s/p left GSV venaseal 05/2023 [...] persist. They need the compression pump from [facility] to manage the lymphedema at home. a fter repeating the doppler if there are no other veins to treat will need the pumps. Kelly Cornejo NP [id number],C, p jaz continues to have bilateral edema [...] left GSV to start. Andrew Lucio MD [id number],C, her venous doppler again today shows large GSV, and SSV reflux w ill plan for venaseal Kelly Cornejo NP [id number],C, p jaz continues to have bilateral edema H er venous doppler shows right gsv and left ssv cvi and no dvt. H er venogram did not show iliac stenosis s he does have bilateral GSV, SSV reflux will plan for venaseal to the left GSV to start. Kelly Cornejo NP [id number],C, H er updated medication list for this problem includes: Diltiazem Hcl 60 Mg Tablet (Diltiazem hcl) ..... Take 2 tablets by mouth three times daily Lasix 40 Mg Tablet (Furosemide) ..... Take 1 tablet by mouth once a day BP today: 141/78 P rior BP: 146/96 (02/20/2023) Labs Reviewed: C reat: 0.87 (08/02/2021) C hol: 164 (02/23/2022) Andrew Lucio MD [id number],C,no angina Jackelyn Lucio MD [id number],C,P jessica comes inf or initial evaluation for [...] and will plan evaluation. Andrew Lucio MD [id number],C,P jessica comes inf or initial evaluation for [...] and will plan evaluation. Andrew Lucio MD [id number],S, T he following medications were removed from the medication list: Aspirin 81 Mg Tablet,delayed Release (dr/ec) (Aspirin) ..... 1 tablet by mouth once a day Her updated medication list for this problem includes: Diltiazem Hcl 60 Mg Tablet (Diltiazem hcl) ..... Take 2 tablets by mouth three times daily Wai Ramon MD [id number],C,7 % on last remote check T he [...] daily eliquis 5mg BID. Augusta Osman NP [id number],C,c arotids: 1.Mild plaque with less than 50% stenosis of the internal carotid arteries bilaterally. 2. Vertebral flow is antegrade bilaterally. Augusta Osman NP [id number],W,see above Blanca Osman NP [id number],W, venous doppler: negative for DVT. significant venous insufficiency of R GSV, and significant venous insufficiency of L Small saphenous vein. scheduled to see Dr. Lucio next week re: significant venous insufficiency Augusta Osman NP [id number],C,P FT today showed: C onclusions: The reduced [...] a chest x-ray today. J Luis Wilde [id number],S, B P today: 142/80 P rior BP: 159/86 (06/20/2022) Labs Reviewed: C reat: 0.87 (08/02/2021) C hol: 164 (02/23/2022) Her updated medication list for this problem includes: Cardizem 60 Mg Tablet (Diltiazem hcl) ..... Take 2 tablet by mouth three times a day Aspirin 81 Mg Tablet,delayed Release (dr/ec) (Aspirin) ..... 1 tablet by mouth once a day J Luis Wilde [id number],S,H er venous US from 07/2022 showed: 1. [...] Lasix 40mg once daily J Luis Wilde [id number],S, H er updated medication list for this problem includes: Cardizem 60 Mg Tablet (Diltiazem hcl) ..... Take 2 tablet by mouth three times a day Aspirin 81 Mg Tablet,delayed Release (dr/ec) (Aspirin) ..... 1 tablet by mouth once a day J Luis Wilde [id number],C, Wai canales MD [id number],C, H er updated medication list for this problem includes: Cardizem 60 Mg Tablet (Diltiazem hcl) ..... Take 2 tablet by mouth three times a day Aspirin 81 Mg Tablet,delayed Release (dr/ec) (Aspirin) ..... 1 tablet by mouth once a day Wai Ramon MD [id number],C, Wai canales MD [id number],W, B LE edema l ikely venous insufficiency. will check venous doppler BLE r ecommend treatment with compression socks for 6 months. Wai Ramon MD [id number],W, O K to start propanalol Silvino Fuentes [id number],S, H er updated medication list for this problem includes: Cardizem 60 Mg Tablet (Diltiazem hcl) ..... Take 2 tablet by mouth three times a day Dofetilide 500 Mcg Capsule (Dofetilide) ..... Take 1 capsule by mouth twice daily Aspirin 81 Mg Tablet,delayed Release (dr/ec) (Aspirin) ..... 1 tablet by mouth once a day Silvino Fuentes [id number],S, H er updated medication list for this problem includes: Cardizem 60 Mg Tablet (Diltiazem hcl) ..... Take 2 tablet by mouth three times a day Aspirin 81 Mg Tablet,delayed Release (dr/ec) (Aspirin) ..... 1 tablet by mouth once a day Silvino Fuentes [id number],S, B P today: 159/86 P rior BP: 161/70 (02/23/2022) Her updated medication list for this problem includes: Cardizem 60 Mg Tablet (Diltiazem hcl) ..... Take 2 tablet by mouth three times a day Aspirin 81 Mg Tablet,delayed Release (dr/ec) (Aspirin) ..... 1 tablet by mouth once a day Silvino Fuentes [id number],CWai MD [id number],C, H er updated medication list for this problem includes: Niacin 1,000 Mg Tablet Extended Release 24 Hr (Niacin) ..... 1 tablet once a day Vascepa 1 Gram Capsule (Icosapent ethyl) ..... Take 2 capsule by mouth twice a day Simvastatin 40 Mg Tablet (Simvastatin) ..... 1 tablet once a day Orders: 9 9215 HIGH 40-54min (CPT-86633) C arotid Duplex Bilateral (CPT-54041) C ardioIQ Advanced Lipid Panel with Inflammation ([facility]) (34964) Wai Ramon MD [id number],C, H er updated medication list for this problem includes: Cardizem 60 Mg Tablet (Diltiazem hcl) ..... Take 1 1/2 tablet by mouth three times a day Aspirin 81 Mg Tablet,delayed Release (dr/ec) (Aspirin) ..... 1 tablet by mouth once a day Orders: P ALETA, N TERMINAL (54564) A nick Duplex Ultrasound (CPT-84147) Wai Ramon MD [id number],C, O rders: 9 9215 HIGH 40-54min (CPT-97664) Wai Ramon MD [id number],C, Wai canales MD [id number],S, H er updated medication list for this problem includes: Cardizem 60 Mg Tablet (Diltiazem hcl) ..... Take 1 1/2 tablet by mouth three times a day Aspirin 81 Mg Tablet,delayed Release (dr/ec) (Aspirin) ..... 1 tablet by mouth once a day Wai Ramon MD [id number],C, H er updated medication list for this problem includes: Cardizem 60 Mg Tablet (Diltiazem hcl) ..... Take 1 1/2 tablet by mouth three times a day Tikosyn 500 Mcg Capsule (Dofetilide) ..... Take 1 capsule by mouth twice a day Aspirin 81 Mg Tablet,delayed Release (dr/ec) (Aspirin) ..... 1 tablet by mouth once a day Orders: E KG (CPT-23205) 9 9215 HIGH 40-54min (CPT-60559) S chedule Followup (*) C OMPREHENSIVE METABOLIC PANEL, W/EGFR (25919) T SH, free T4, total T3 (7444) M AGNESIUM (622) P ROBNP, N TERMINAL (25019) C omplete Echo (CPT-12144) Wai Ramon MD [id number],C, H er updated medication list for this problem includes: Cardizem 60 Mg Tablet (Diltiazem hcl) ..... Take 1 1/2 tablet by mouth three times a day Tikosyn 500 Mcg Capsule (Dofetilide) ..... Take 1 capsule by mouth twice a day Aspirin 81 Mg Tablet,delayed Release (dr/ec) (Aspirin) ..... 1 tablet by mouth once a day Orders: E KG (CPT-66317) 9 9215 HIGH 40-54min (CPT-60060) S chedule Followup (*) Wai Ramon MD [id number],B, Wai canales MD [id number],C, s table. ECHO: 05/17/21 EF 50%, mild-mod MR, mild TR Wai Ramon MD [id number],W,e levated today. 160/90. will increase cardizem to 90mg TID. will arrange for RPM. Discussion of benefits for remote patient monitoring took place. Patient gives consent for remote monitoring of physiologic parameters including, but not limited to, weight, blood pressure, pulse oximetry, respiratory flow rate. Augusta Osman NP [id number],C, s table. ECHO: 05/17/21 EF 50%, mild-mod MR, mild TR Augusta Osman NP [id number],C,m ild. last ECHO 05/2021 EF 50%. will recheck ECHO in May Augusta Osman NP [id number],C,E KG today SR Her updated medication list for this problem includes: Cardizem 60 Mg Tablet (Diltiazem hcl) ..... Take 1 1/2 tablet by mouth three times a day Tikosyn 500 Mcg Capsule (Dofetilide) ..... Take 1 capsule by mouth twice a day Aspirin 81 Mg Tablet,delayed Release (dr/ec) (Aspirin) ..... 1 tablet by mouth once a day Eliquis 5mg BID Augusta Osman NP [id number],W, 1 00% AF burden on device interrogation [...] by mouth once a day Silvino Fuentes [id number],C,p t statest that she did not decrease [...] bid to once daily. Augusta Osman NP [id number],C, o n statin, vascepa, niacin Augusta Osman NP [id number],C,B P today 112/70 Her updated medication list for this problem includes: Cardizem 60 Mg Tablet (Diltiazem hcl) ..... Take 1 tablet by mouth three times a day Aspirin 81 Mg Tablet,delayed Release (dr/ec) (Aspirin) ..... 1 tablet by mouth once a day Augusta Osman NP [id number],C,s table. ECHO: 05/17/21 EF 50%, mild-mod MR, mild TR Augusta Osman NP [id number],CWai MD [id number],C, H er updated medication list for this problem includes: Cardizem 60 Mg Tablet (Diltiazem hcl) ..... Take 1 tablet by mouth three times a day Aspirin 81 Mg Tablet,delayed Release (dr/ec) (Aspirin) ..... 1 tablet by mouth once a day Wai Ramon MD [id number],W,C ardioverted 05/18/2021 but back to A. fib [...] mouth once a day Orders: E KG (CPT-44742) 9 14 MOD 30-39min (CPT-78436) M onitor - Telemetry (Mobile Cardiac) (CPT-41276) Wai Ramon MD [id number],C, H er updated medication list for this problem includes: Cardizem 60 Mg Tablet (Diltiazem hcl) ..... Take 1 tablet by mouth three times a day Aspirin 81 Mg Tablet,delayed Release (dr/ec) (Aspirin) ..... 1 tablet by mouth once a day Orders: 9213 MOD 30-39min (CPT-55557) Wai Ramon MD [id number],C,on statin and vascepa Augusta Osman NP [id number],C,e levated today 135/90, in AFIB RVR 130's c ontinue metoprolol 50mg BID a dding joe Osman NP [id number],C,E KG today AFIB RVR 130's. reports SOB, GAMBLE, fatigue, but no complaints of heart palpiations or fluttering. c urrently on metoprolol and eliquis. will start cardizem 60mg TID, instructed to take 1st tab when mixing picker tender from pharmacy and get another tab in before bedtime. will arrange for CV on . will check ECHO tomorrow. check labs today Augusta Osman RAMONITA [id number],C,s tress test 2017 normal, EF 56% E [...] (Niacin) ..... 1 tablet once a day Augusat Tiradocatarino SHIPMAN Electrophysiology: B P today: 126/70 [...] times daily Orders: 9 9215 HIGH 40-54min (CPT-33519) S tress Regadenoson (CPT-09294) C omplete Echo (78955) Wai Ramon MD Electrophysiology: H er updated [...] mouth three times daily Orders: E KG (CPT-74139) 45994 HIGH 40-54min (CPT-08842) S tress Regadenoson (CPT-54862) C omplete Echo (01571) Wai Ramon MD Electrophysiology Wai aguilera MD [...] check a chest x-ray today. Kelly Cornejo PRIMARY CARE COORDINATOR Cardiology:CHOL: 181 (03/09/2023) LDL: * mg/dL (calc) [...] (02/23/2022) T4 (total): 8.4 (05/18/2021) Kelly Cornejo PRIMARY CARE COORDINATOR Cardiology: s /p left GSV venaseal 05/2023 p ost doppler shows occluded left GSV, and no DVT h er swelling has improved with the lymphopumps which she uses every day. Kelly Cornejo PRIMARY CARE COORDINATOR Cardiology: s he is s/p left GSV [...] persist. They need the compression pump from [facility] to manage the lymphedema at home. a fter repeating the doppler, 06/2023 negative for DVT, compression therapy is being arranged. Augusta Osman NP Electrophysiology:courtney s followed with Dr. Lucio. venaseal was done that was unsuccessful, felt that swelling is do to lymphedema. last echo EF 65%. pt is being arranged for compression therapy. lasix and kcl stopped. Augusta Osman PRIMARY CARE COORDINATOR Electrophysiology: p t states that she will occasionally experience episodes where she will feel dizzy and 'disconnected for a few seconds'. she says this usually occurs while at the store, but states that she occasionally will have dizzy spells, while not at a store. will check CT HEAD without contrast and carotids Augusta Osman PRIMARY CARE COORDINATOR Cardiology:she is s/ p left GSV venaseal [...] persist. They need the compression pump from [facility] to manage the lymphedema at home. a [...] persist. They need the compression pump from [facility] to manage the lymphedema at home. a [...] a day Orders: 9 9215 HIGH 40-54min (CPT-04966) C arotid Duplex Bilateral (CPT-00978) C ardioIQ Advanced Lipid Panel with Inflammation ([facility]) (94393) Wai Ramon MD Electrophysiology: H er updated medication list for this problem includes: Cardizem 60 Mg Tablet (Diltiazem hcl) ..... Take 1 1/2 tablet by mouth three times a day Aspirin 81 Mg Tablet,delayed Release (dr/ec) (Aspirin) ..... 1 tablet by mouth once a day Orders: P Jorge RIVER TERMINAL (22990) A nick Duplex Ultrasound (CPT-85452) Wai Ramon MD Electrophysiology: O rders: 9 9215 HIGH 40-54min (CPT-66145) Wai Ramon MD Electrophysiology Wai aguilera MD [...] mouth once a day Orders: E KG (CPT-89786) 9 9215 HIGH 40-54min (CPT-61839) S chedule Followup (*) C OMPREHENSIVE METABOLIC PANEL, W/EGFR (30579) T SH, free T4, total T3 (7444) M AGNESIUM (622) P ROBNP, N TERMINAL (37412) C omplete Echo (CPT-13981) Wai Ramon MD Electrophysiology: H er updated medication list for this problem includes: Cardizem 60 Mg Tablet (Diltiazem hcl) ..... Take 1 1/2 tablet by mouth three times a day Tikosyn 500 Mcg Capsule (Dofetilide) ..... Take 1 capsule by mouth twice a day Aspirin 81 Mg Tablet,delayed Release (dr/ec) (Aspirin) ..... 1 tablet by mouth once a day Orders: E KG (CPT-65080) 9 9215 HIGH 40-54min (CPT-46306) S chedule Followup (*) Wai Ramon MD [...] tablet by mouth once a day Augusta Omsan NP Electrophysiology:st able. ECHO: 05/17/21 EF 50%, [...] mouth once a day Orders: E KG (CPT-86677) 9 9214 MOD 30-39min (CPT-71828) M onitor - Telemetry (Mobile Cardiac) (CPT-25961) Wai Ramon MD Electrophysiology: H er updated medication list for this problem includes: Cardizem 60 Mg Tablet (Diltiazem hcl) ..... Take 1 tablet by mouth three times a day Aspirin 81 Mg Tablet,delayed Release (dr/ec) (Aspirin) ..... 1 tablet by mouth once a day Orders: 14 MOD 30-39min (CPT-80977) Wai Ramon MD Electrophysiology:on statin and vascepa Augusta Osman NP Electrophysiology:el evated today 135/90, in AFIB RVR 130's c ontinue metoprolol 50mg BID a dding joe Osman NP Electrophysiology:EK G today AFIB RVR 130's. reports SOB, GAMBLE, fatigue, but no complaints of heart palpiations or fluttering. c urrently on metoprolol and eliquis. 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 C ontinue metoprolol. Erin Crocker PRIMARY CARE COORDINATOR EP: O rders: S NOMED-CT: [id number] Current Medications Documented (SCT-[id number]) 9 9215 HIGH Complex (CPT-73786) M [facility] Tele (CPT-17969) S [facility] Study - split night (CPT-33608) S chedule Followup (*) BP today: 110/78 [...] Delfino Suarez EP: O rders: S NOMED-CT: [id number] Current Medications Documented (SCT-[id number]) 9 15 HIGH Complex (CPT-03655) M [facility] (CPT-00268) S [facility] Study - split night (CPT-79986) S chedule Followup (*) Delfino Suarez EP:PMD manages H er updated medication list for this problem includes: Niacin Er (antihyperlipidemic) 1000 Mg Oral Cr-tabs (Niacin (antihyperlipidemic)) ..... Two tabs daily Simvastatin 40 Mg Oral Tabs (Simvastatin) ..... One tab daily Delfino Suarez EP:compliant with mo uthguard O rders: S NOMED-CT: [id number] Current Medications Documented (SCT-[id number]) 9 9215 HIGH Complex (CPT-73898) M [facility] Cardiac Tele (CPT-04647) S [facility] Study - split night (CPT-46538) S chedule Followup (*) S [facility] Study Titration (CPT-92106) Delfino Suarez EP:Normal adenosine nuclear stress test today BP today: 110/78 P rior BP: 130/90 (01/23/2017) Orders: S NOMED-CT: [id number] Current Medications Documented (SCT-[id number]) 9 9215 HIGH Complex (CPT-52136) M [facility] Cardiac Tele (CPT-67774) S [facility] Study - split night (CPT-84349) S chedule Followup (*) Delfino Suarez EP:CHADS [...] MD Cardiology: O rders: F VC - 48128 (24414) F RC - 87989 (13262) D LCO - 38989 (62166) C omplete Echo (CPT-97101) 9 9205 HIGH Complex (CPT-89752) Her updated medication list for this problem includes: Aspirin Adult Low Dose 81 Mg Oral Tbec (Aspirin) ..... One tab by mouth daily Corgard 80 Mg Oral Tabs (Nadolol) ..... One tab daily Wai Ramon MD Cardiology: O rders: F VC - 77993 (68509) F RC - 83621 (75466) D LCO - 67465 (30237) C omplete Echo (CPT-09234) 9 9205 HIGH Complex (CPT-50628) Her updated medication list for this problem [...] Bilat eral LE - Reflux DLCO - 12501 FRC - 53322 FVC - 36973 Venous Doppler Bilat eral LE - Reflux [...] Dual Chamb er - SLHV DLCO - 60358 FRC - 72654 FVC - 58949 Monitor - Telemetry (Mobile Cardiac) Monitor - [...] STR - Adenosine Complete Echo DLCO - 16552 FRC - 90779 FVC - 10119 HISTORY OF PROCEDURES Procedure Date Procedure Name [...] completed FVC / MVV with bronchodilator - 74304 Wai Ramon MD completed BLOOD COUNT HEMOGLOBIN Wai carreon MD completed FRC - 16842 Wai rodriguez MD completed SpO2 w/o 6min walk/titration Wai Ramon MD completed SVC - 02164 Wai rodriguez MD completed DLCO - 55821 Wai rodriguez MD completed EKG Wai rodriguez MD completed Schedule Followup Wai aguilera MD completed EKG Wai rodriguez MD completed Schedule Followup Wai RAMON 6 MONTHS completed EKG Wai rodriguez MD completed Spirometry Wai rodriguez MD completed FVC / MVV with bronchodilator - 25385 Wai Ramon MD completed BLOOD COUNT HEMOGLOBIN Wai carreon MD completed FRC - 59507 Wai rodriguez MD completed SpO2 w/o 6min walk/titration Wai Ramon MD completed SVC - 04996 Wai rodriguez MD completed DLCO - 45342 Wai rodriguez MD completed Holter, 24 or [...] completed EKG Wai rodriguez MD completed SNOMED-CT: [id number] Current Medications Documented Heladio Watts DO completed Event Monitor Wai rodriguez MD completed Stress EKG [place] Arita MD complet ed Regadenoson, 4 units [place] Arita MD completed Cardiolite, 2 units [place] Arita MD completed SPECT Images [place] Arita MD compl eted Schedule Followup Wai aguilera MD 6 months completed EKG Wai rodriguez MD completed SNOMED-CT: [id number] Current Medications Documented Wai Ramon MD completed FVC / MVV with bronchodilator - 30845 Wai Ramon MD completed BLOOD COUNT HEMOGLOBIN Wai carreon MD completed FRC - 29776 Wai rodriguez MD completed SpO2 - 77020 Wai rodriguez MD completed DLCO - 47757 Wai rodriguez MD completed EKG Wai rodriguez MD completed SNOMED-CT: [id number] Current Medications Documented Wai Ramon MD completed
== END 2024-11-19 11:50 | disposition home or self-care (01) ==
PROVIDERS: Emergency Provider Nurse Practitioner; PCP Internal Medicine
DX: J40 Bronchitis, not specified as acute or chronic (principal); J01.40 Acute pansinusitis, unspecified; Z87.891 Personal history of nicotine dependence; J45.909 Unspecified asthma, uncomplicated; E78.00 Pure hypercholesterolemia, unspecified; I10 Essential (primary) hypertension; K21.9 Gastro-esophageal reflux disease without esophagitis; I48.91 Unspecified atrial fibrillation; I25.10 Atherosclerotic heart disease of native coronary artery without angina pectoris; Z98.42 Cataract extraction status, left eye; Z98.41 Cataract extraction status, right eye; Z95.0 Presence of cardiac pacemaker; Z96.653 Presence of artificial knee joint, bilateral; Z95.1 Presence of aortocoronary bypass graft
CPT/HCPCS: 99213; G0463